=== PATIENT | male | born 1965 | race African-American/Black ===

== ENCOUNTER → 2018-08-01 | Outpatient (CLI) | payer OTHER ==
--- NOTE | 2018-08-01 17:01 | RAD ---
Left lower extremity venous duplex study 08/01/2018 Clinical History: Follow-up left lower extremity DVT. Comparison: No comparison ultrasound is available for review. Technique: Using a combination of real time ultrasound imaging and color-flow and pulse Doppler imaging techniques, including spectral analysis, graded compression and augmentation, duplex evaluation of the deep venous system of the left lower extremity was performed. Multiple images were obtained. Findings: Partially occlusive thrombus is noted within the left common femoral vein, superficial femoral vein, popliteal vein, posterior tibial vein. Greater saphenous vein is patent. Clot is echogenic consistent with subacute or chronic thrombus. Venous flow around thrombus is seen on color Doppler imaging. IMPRESSION: Partially occlusive, likely subacute or chronic thrombus extending from left common femoral vein through the posterior tibial veins. Recommend correlation with outside imaging if available. Electronically signed by: Ronal Larose MD (08/01/2018 4:58 PM) [id number]
== END | disposition home or self-care (01) ==
LOC: US 16:13
PROVIDERS: ATTEND General Practice
DX: I82.492 Acute embolism and thrombosis of other specified deep vein of left lower extremity (principal)
CPT/HCPCS: 93971

== ENCOUNTER → 2018-10-26 | Outpatient (CLI) | payer OTHER ==
[~2018-10-26] VITALS: Ht 170.2 cm; Wt 52.6 kg
[~2018-10-26] MED LIST: ACETAMINOPHEN 325 MG TABLET. PO ONE; APIX5TAB PO; BUME2TAB PO; CALC1TAB75 PO; CARV12.511 PO; CHOL500016 PO; ESOM20CA PO; FOLI1TAB16 PO; LACT296L10 PO; METH25VI27 IJ; POLY255P11 PO; PRED20TA PO; TAMS0.4C2 PO; USTE90DI SQ; ZINC220T PO; diphenhydrAMINE HCL 25 MG CAPSULE PO ONE
[2018-10-26 13:31] VITALS: BP 128/72
[2018-10-26 13:33] LABS: BASO % 0 % (0-3); EOS % 0 % (0-3); LYMPH # 0.6 x10^3/uL (1.0-4.8); LYMPH % 10 % (24-48); MEAN CORPUSCULAR HEMOGLOBIN 31 pg (25-35); MEAN CORPUSCULAR HGB CONC 33 g/dL (31-37); MEAN CORPUSCULAR VOLUME 94 fL (79-100); MONO # 0.1 x10^3/uL (0.0-1.1); MONO % 1 % (0-9); NEUT # 5.6 x10^3uL (1.8-7.7); NEUT % 88 % (31-73); PLATELET COUNT 453 x10^3/uL (140-400); RED BLOOD COUNT 2.03 x10^6/uL (4.30-5.70); RED CELL DISTRIBUTION WIDTH 27.8 % (11.5-14.5); WHITE BLOOD COUNT 6.3 x10^3/uL (4.0-11.0)
[2018-10-26 13:37] LABS: HEMATOCRIT 19.1 % (39.0-53.0); HEMOGLOBIN 6.3 g/dL (13.0-17.5)
[2018-10-26 14:55] VITALS: BP 131/67
[2018-10-26 15:35] VITALS: BP 143/85
[2018-10-26 15:41] LABS: % LYMPHS 7 % (24-48); % SEGS 93 % (35-66); NUCLEATED RBC 1
[2018-10-26 15:44] LABS: PLT ESTIMATE INCREASED (ADEQUATE)
[2018-10-26 15:51] LABS: ANISOCYTOSIS MARKED
[2018-10-26 16:33] VITALS: BP 128/79
== END ==
LOC: OPS 12:32
PROVIDERS: ATTEND Internal Medicine Hematology & Oncology
DX: D64.9 Anemia, unspecified (principal)
CPT/HCPCS: 36415; 36430; 85007; 85025; 86850; 86900; 86901; 86920; P9016; Q0163

== ENCOUNTER 2019-03-08 14:57 | Inpatient (IN) | payer OTHER ==
[~2019-03-08] VITALS: Ht 170.2 cm; Wt 65.4 kg
[~2019-03-08 14:57] MED LIST changes: -ACETAMINOPHEN 325 MG TABLET. PO ONE; -BUME2TAB PO; +BUME2TAB3 PO; -diphenhydrAMINE HCL 25 MG CAPSULE PO ONE
[2019-03-08] MEDS ORDERED: MORPHINE SULFATE 10 MG/ML VIAL. IV ONE (15:30)
[2019-03-08] MEDS ORDERED: ONDANSETRON PF 4 MG/2 ML VIAL. IV ONE (15:30)
[2019-03-08] MEDS ORDERED: IV NORMAL SALINE 1000ML BAG 1,000 ML IV ONE ×2 (15:30→19:45)
[2019-03-08 16:10] LABS: BASO % 0 % (0-3); EOS # 0.5 x10^3/uL (0.0-0.7); EOS % 5 % (0-3); HEMOGLOBIN 8.3 g/dL (13.0-17.5); LYMPH # 1.2 x10^3/uL (1.0-4.8); LYMPH % 12 % (24-48); MEAN CORPUSCULAR HEMOGLOBIN 29 pg (25-35); MEAN CORPUSCULAR HGB CONC 32 g/dL (31-37); MEAN CORPUSCULAR VOLUME 90 fL (79-100); MONO # 2.3 x10^3/uL (0.0-1.1); MONO % 23 % (0-9); NEUT # 6.1 x10^3uL (1.8-7.7); NEUT % 61 % (31-73); PLATELET COUNT 277 x10^3/uL (140-400); RED CELL DISTRIBUTION WIDTH 18.5 % (11.5-14.5); WHITE BLOOD COUNT 10.1 x10^3/uL (4.0-11.0)
[2019-03-08 16:22] LABS: CALCIUM 8.3 mg/dL (8.5-10.1); CREATININE 2.3 mg/dL (0.7-1.3); GFR 36.3; POTASSIUM 4.8 mmol/L (3.5-5.1)
[2019-03-08 16:31] LABS: ALBUMIN 2.3 g/dL (3.4-5.0); ALBUMIN/GLOBULIN RATIO 0.5 (1.0-1.7); TOTAL BILIRUBIN 0.4 mg/dL (0.2-1.0); TOTAL PROTEIN 7.1 g/dL (6.4-8.2)
[2019-03-08 16:37] LABS: BILIRUBIN,URINE NEGATIVE (NEG); CLARITY,URINE CLEAR; COLOR,URINE YELLOW; NITRITE,URINE NEGATIVE (NEG); PH,URINE 7.5; PROTEIN,URINE 30 mg/dL (NEG-TRACE); UROBILINOGEN,URINE 0.2 mg/dL (0.2 mg/dL)
--- NOTE | 2019-03-08 16:42 | PHYS DOC ---
Past Medical History Past Medical History: Other Additional Past Medical Histor: crohn's disease (RADHA WARD APRN) Past Surgical History: Other Additional Past Surgical Histo: bowel resection, colostomy (RADHA WARD APRN) Alcohol Use: None Drug Use: None (RADHA WARD APRN) Adult General Chief Complaint Chief Complaint: ABDOMINAL PAIN HPI HPI Patient is a 54 year old male with history of Crohn's and colostomy who presents to the ED today complaining of 7 out of 10 right upper quadrant abdominal pain radiating to the right flank region that has been going on for 2 days. Patient denies any nausea/ vomiting. Denies any unusual drainage from his colostomy though he states his stoma has been deformed since October when it was placed, he states he is supposed to have surgery to reconstruct it on 2018 at [facility]. He states the colostomy is draining normal amount of stool. Denies any chest pain or shortness of breath. Denies any fever. (RADHA WARD APRN) Review of Systems Review of Systems Constitutional: Denies fever or chills [] Eyes: Denies change in visual acuity, redness, or eye pain [] HENT: Denies nasal congestion or sore throat [] Respiratory: Denies cough or shortness of breath [] Cardiovascular: No additional information not addressed in HPI [] GI: Reports right upper quadrant abdominal pain radiating to the flank region, denies left upper quadrant, nausea, vomiting, bloody stools or diarrhea [] : Denies dysuria or hematuria [] Musculoskeletal: Denies back pain or joint pain [] Integument: Denies rash or skin lesions [] Neurologic: Denies headache, focal weakness or sensory changes [] All other systems were reviewed and found to be within normal limits, except as documented in this note. (RADHA WARD APRN) Current Medications Current Medications Current Medications Medications (Trade) Dose Ordered Sig/Vazquez Start Time Stop Time Status Last Admin Dose Admin Acetaminophen (Tylenol) 650 mg PRN Q6HRS PRN 03/08/19 19:15 03/13/19 14:47 DC Calcium Carbonate/ Glycine (Tums) 500 mg PRN Q3HRS PRN 03/08/19 19:15 03/13/19 14:46 DC Hydralazine HCl (Apresoline Inj) 10 mg PRN Q4HRS PRN 03/08/19 19:15 03/13/19 14:47 DC Morphine Sulfate (Morphine Sulfate) 2 mg PRN Q2HR PRN 03/08/19 19:15 03/13/19 14:47 DC 03/09/19 05:33 2 MG Ondansetron HCl (Zofran) 4 mg PRN Q6HRS PRN 03/08/19 19:15 03/13/19 14:46 DC Oxycodone HCl (Roxicodone) 5 mg PRN Q3HRS PRN 03/08/19 19:15 03/13/19 14:47 DC 03/12/19 21:07 5 MG Piperacillin Sod/ Tazobactam Sod (Zosyn Per Pharmacy) 1 each PRN DAILY PRN 03/08/19 19:15 03/13/19 14:47 DC Prochlorperazine (Compazine) 25 mg PRN Q12HR PRN 03/08/19 19:15 03/13/19 14:46 DC Prochlorperazine Edisylate (Compazine) 10 mg PRN Q6HRS PRN 03/08/19 19:15 03/13/19 14:46 DC Sodium Chloride 1,000 ml @ 100 mls/hr Q10H 03/08/19 19:04 03/09/19 05:25 DC 03/08/19 21:18 100 MLS/HR (ALEX GARCIA DO) Allergies Allergies Allergies Coded Allergies Type Severity Reaction Last Updated Verified No Known Drug Allergies 10/26/18 No (ALEX GARCIA DO) Physical Exam Physical Exam Constitutional: Well developed, well nourished, no acute distress, non-toxic appearance. [] HENT: Normocephalic, atraumatic, bilateral external ears normal, oropharynx moist, no oral exudates, nose normal. [] Eyes: PERRLA, EOMI, conjunctiva normal, no discharge. [] Neck: Normal range of motion, no tenderness, supple, no stridor. [] Cardiovascular:Heart rate regular rhythm, no murmur [] Lungs & Thorax: Bilateral breath sounds clear to auscultation [] Abdomen: Left upper abdomen noted for colostomy, nursing staff changing the bag right now the stoma has quit abit of edema. Bowel sounds normal, soft, diffuse tenderness to the right upper quadrant with positive Bradley sign, diffuse tenderness to the lower abdomen with no point tenderness specifically to the right lower quadrant, negative psoas sign, negative obturator sign, no masses, no pulsatile masses. [] Skin: Warm, dry, no erythema, no rash. [] Back: No tenderness, no CVA tenderness. [] Extremities: No tenderness, no cyanosis, no clubbing, ROM intact, no edema. [] Neurologic: Alert and oriented X 3, normal motor function, normal sensory function, no focal deficits noted. [] Psychologic: Affect normal, judgement normal, mood normal. [] (RADHA WARD APRN) Current Patient Data Vital Signs Vital Signs Date Time Temp Pulse Resp B/P (MAP) Pulse Ox O2 Delivery O2 Flow Rate FiO2 03/08/19 18:45 111 24 148/91 (110) 94 Room Air 03/08/19 14:57 98.8 98.8 (GARCIA,ALEX R DO) Lab Values Laboratory Tests Test 03/08/19 15:50 03/08/19 16:30 White Blood Count 10.1 x10^3/uL (4.0-11.0) Red Blood Count 2.90 x10^6/uL (4.30-5.70) L Hemoglobin 8.3 g/dL (13.0-17.5) L Hematocrit 26.0 % (39.0-53.0) L Mean Corpuscular Volume 90 fL (79-100) Mean Corpuscular Hemoglobin 29 pg (25-35) Mean Corpuscular Hemoglobin Concent 32 g/dL (31-37) Red Cell Distribution Width 18.5 % (11.5-14.5) H Platelet Count 277 x10^3/uL (140-400) Neutrophils (%) (Auto) 61 % (31-73) Lymphocytes (%) (Auto) 12 % (24-48) L Monocytes (%) (Auto) 23 % (0-9) H Eosinophils (%) (Auto) 5 % (0-3) H Basophils (%) (Auto) 0 % (0-3) Neutrophils # (Auto) 6.1 x10^3uL (1.8-7.7) Lymphocytes # (Auto) 1.2 x10^3/uL (1.0-4.8) Monocytes # (Auto) 2.3 x10^3/uL (0.0-1.1) H Eosinophils # (Auto) 0.5 x10^3/uL (0.0-0.7) Basophils # (Auto) 0.0 x10^3/uL (0.0-0.2) Segmented Neutrophils % 73 % (35-66) H Lymphocytes % 6 % (24-48) L Monocytes % 15 % (0-10) H Eosinophils % 6 % (0-5) H Platelet Estimate Adequate (ADEQUATE) Polychromasia Slight Microcytosis Slight Macrocytosis Slight Sodium Level 137 mmol/L (136-145) Potassium Level 4.8 mmol/L (3.5-5.1) Chloride Level 103 mmol/L (98-107) Carbon Dioxide Level 24 mmol/L (21-32) Anion Gap 10 (6-14) Blood Urea Nitrogen 45 mg/dL (8-26) H Creatinine 2.3 mg/dL (0.7-1.3) H Estimated GFR (Cockcroft-Gault) 36.3 BUN/Creatinine Ratio 20 (6-20) Glucose Level 99 mg/dL (70-99) Calcium Level 8.3 mg/dL (8.5-10.1) L Total Bilirubin 0.4 mg/dL (0.2-1.0) Aspartate Amino Transferase (AST) 18 U/L (15-37) Alanine Aminotransferase (ALT) 18 U/L (16-63) Alkaline Phosphatase 146 U/L (46-116) H Total Protein 7.1 g/dL (6.4-8.2) Albumin 2.3 g/dL (3.4-5.0) L Albumin/Globulin Ratio 0.5 (1.0-1.7) L Lipase 61 U/L (73-393) L Urine Color Yellow Urine Clarity Clear Urine pH 7.5 Urine Specific [place] 1.015 Urine Protein 30 mg/dL (NEG-TRACE) Urine Glucose (UA) Negative mg/dL (NEG) Urine Ketones (Stick) Negative mg/dL (NEG) Urine Blood Small (NEG) Urine Nitrite Negative (NEG) Urine Bilirubin Negative (NEG) Urine Urobilinogen Dipstick 0.2 mg/dL (0.2 mg/dL) Urine Leukocyte Esterase Negative (NEG) Urine RBC 3-5 /HPF (0-2) Urine WBC Occ /HPF (0-4) Urine Squamous Epithelial Cells Occ /LPF Urine Bacteria 0 /HPF (0-FEW) Laboratory Tests 03/08/19 15:50 Laboratory Tests 03/08/19 15:50 (ALEX GARCIA DO) EKG EKG [] (SYLVIARADHA APRN) Radiology/Procedures Radiology/Procedures []PROCEDURE: CT ABDOMEN PELVIS WO CONTRAST INDICATION: CHEST/ABD DISTENSION COMPARISON: None. TECHNIQUE: Axial CT images obtained through the chest, abdomen and pelvis without contrast. Limited assessment of solid organ structures and vasculature secondary to lack of intravenous contrast.. One or more of the following individualized dose reduction techniques were utilized for this examination: 1. Automated exposure control; 2. Adjustment of the mA and/or kV according to patient size; 3. Use of iterative reconstruction technique. FINDINGS: Chest: Large right-sided pleural effusion with adjacent airspace consolidation. Only a small portion of the right lung is aerated. Mild opacity at left lung base. Port with tip at SVC. There is suspected enlarged lymph nodes within the mediastinum. Suspect that there is some mass effect on the mediastinum from the patient's pleural effusion. Limited evaluation of the vasculature without contrast. A ascending thoracic aorta measures up to about 41 mm but limited evaluation. This is mildly enlarged. There is a small amount soft tissue density in the anterior mediastinum. Abdomen and pelvis: Abdominal aorta not grossly aneurysmal. Cannot evaluate lumen on noncontrast exam. Inferior vena cava filter. Low-density lesion at hepatic dome measuring up to 16mm. Gallstones. Gallbladder somewhat distended at time of exam. Poor evaluation of pancreas without contrast. Spleen does not appear grossly enlarged. No left-sided hydronephrosis. Urinary bladder is partially distended. Left lower quadrant ostomy. No right-sided hydronephrosis. There is some apparent wall thickening of the colon including extending to the ostomy site. There is some haziness to the fat. Air-filled dilated loop of colon at left side of the abdomen measuring up to about 7 cm. Edema of soft tissues. Degenerative changes the spine with scoliotic curvature multilevel central canal and neural foraminal stenosis. Ossific densities within the soft tissues inferior to the right pelvis. Chronic appearance. IMPRESSION: 1. Wall thickening of the colon including adjacent to the ostomy site with adjacent edema. Can be seen with causes such as colitis and would correlate with symptoms in the region. 2. Dilated loop of colon is seen within the abdomen which could be from ileus or distal obstruction. 3. Large right-sided pleural effusion with adjacent airspace consolidation. Follow-up could be obtained to ensure this resolves. 4. Gallbladder somewhat distended at time of exam with gallstones. Low-density lesion at hepatic dome. Not well evaluated on noncontrast imaging but a common finding. If more complete characterization is desired a follow-up focused ultrasound could assess if this is solid or cystic on a nonemergent basis. Electronically signed by: Toma Morillo MD (03/08/2019 5:44 PM) [facility] DICTATED and SIGNED BY: TOMA MORILLO MD DATE: 03/08/19 174 PROCEDURE: CT CHEST WO CONTRAST INDICATION: CHEST/ABD DISTENSION COMPARISON: None. TECHNIQUE: Axial CT images obtained through the chest, abdomen and pelvis without contrast. Limited assessment of solid organ structures and vasculature secondary to lack of intravenous contrast.. One or more of the following individualized dose reduction techniques were utilized for this examination: 1. Automated exposure control; 2. Adjustment of the mA and/or kV according to patient size; 3. Use of iterative reconstruction technique. FINDINGS: Chest: Large right-sided pleural effusion with adjacent airspace consolidation. Only a small portion of the right lung is aerated. Mild opacity at left lung base. Port with tip at SVC. There is suspected enlarged lymph nodes within the mediastinum. Suspect that there is some mass effect on the mediastinum from the patient's pleural effusion. Limited evaluation of the vasculature without contrast. A ascending thoracic aorta measures up to about 41 mm but limited evaluation. This is mildly enlarged. There is a small amount soft tissue density in the anterior mediastinum. Abdomen and pelvis: Abdominal aorta not grossly aneurysmal. Cannot evaluate lumen on noncontrast exam. Inferior vena cava filter. Low-density lesion at hepatic dome measuring up to 16mm. Gallstones. Gallbladder somewhat distended at time of exam. Poor evaluation of pancreas without contrast. Spleen does not appear grossly enlarged. No left-sided hydronephrosis. Urinary bladder is partially distended. Left lower quadrant ostomy. No right-sided hydronephrosis. There is some apparent wall thickening of the colon including extending to the ostomy site. There is some haziness to the fat. Air-filled dilated loop of colon at left side of the abdomen measuring up to about 7 cm. Edema of soft tissues. Degenerative changes the spine with scoliotic curvature multilevel central canal and neural foraminal stenosis. Ossific densities within the soft tissues inferior to the right pelvis. Chronic appearance. IMPRESSION: 1. Wall thickening of the colon including adjacent to the ostomy site with adjacent edema. Can be seen with causes such as colitis and would correlate with symptoms in the region. 2. Dilated loop of colon is seen within the abdomen which could be from ileus or distal obstruction. 3. Large right-sided pleural effusion with adjacent airspace consolidation. Follow-up could be obtained to ensure this resolves. 4. Gallbladder somewhat distended at time of exam with gallstones. Low-density lesion at hepatic dome. Not well evaluated on noncontrast imaging but a common finding. If more complete characterization is desired a follow-up focused ultrasound could assess if this is solid or cystic on a nonemergent basis. Electronically signed by: Toma Morillo MD (03/08/2019 5:44 PM) [facility] DICTATED and SIGNED BY: TOMA MORILLO MD DATE: 03/08/19 1744 (RADHA WARD APRN) Course & Med Decision Making Course & Med Decision Making Pertinent Labs and Imaging studies reviewed. (See chart for details) This is a 54-year-old male patient presented to the ED today complaining of right upper quadrant abdominal pain radiating to the right flank region, symptoms for 2 days, patient has history of Crohn's and has a colostomy since October 2018. CT of the abdomen and pelvic was noted for-Wall thickening of the colon including adjacent to the ostomy site with adjacent edema. Can be seen with causes such as colitis and would correlate with symptoms in the region. Dilated loop of colon is seen within the abdomen which could be from ileus or distal obstruction. Large right-sided pleural effusion with adjacent airspace consolidation. Follow-up could be obtained to ensure this resolves.Gallbladder somewhat distended at time of exam with gallstones. Low-density lesion at hepatic dome. Not well evaluated on noncontrast imaging but a common finding. if more complete characterization is desired a follow-up focused ultrasound could assess if this is solid or cystic on a nonemergent basis. CBC with a normal WBC, hemoglobin 8.3, hematocrit 26.0, CMP with creatinine of 2.3, BUN 45. ALK 146, AST is normal, ALT is normal. Consulted with Dr. Treadwell will follow-up with patient Consulted with Dr. Freeman who accepted patient for admission Consulted with Dr. Cordova he requested we hydrate patient for ARF. (RADHA WARD APRN) Dragon Disclaimer Dragon Disclaimer This electronic medical record was generated, in whole or in part, using a voice recognition dictation system. (RADHA WARD APRN) Departure Departure Impression: Primary Impression: Cholelithiasis Additional Impressions: ARF (acute renal failure) Pleural effusion on right Colitis Disposition: ADMITTED INPATIENT Condition: STABLE Referrals: PAUL ZAPATA DO (PCP) Scripts Amoxicillin/Potassium Clav (AUGMENTIN 500-125 TABLET) 1 Each Tablet 1 TAB PO BID for pneumonia, #20 TAB Prov: ROYA CAIN MD 03/13/19 Budesonide (BUDESONIDE) 0.5 Mg/2 Ml Ampul.neb 0.5 MG NEB RTBID for lungs for 14 Days, #30 EACH Prov: ROYA CAIN MD 03/13/19 Calcium Carbonate (CALCIUM CARBONATE) 200 Mg Tab.chew 500 MG PO PRN Q3HRS PRN for UPSET STOMACH for 10 Days, #30 TAB.CHEW Prov: ROYA CAIN MD 03/13/19 Attending Signature Attending Signature I have reviewed the PA/MUD CLEANER OPERATOR's note and plan of care. I was available for consultation as needed during the patient's visit in the emergency department. I agree with the clinical impression, plan, and disposition. (ALEX GARCIA DO) Problem Qualifiers Primary Impression: Cholelithiasis Cholelithiasis location: bile duct Cholecystitis presence: without cholecystitis Biliary obstruction: without biliary obstruction Qualified Codes: K80.50 - Calculus of bile duct without cholangitis or cholecystitis without obstruction Additional Impressions: ARF (acute renal failure) Acute renal failure type: unspecified Qualified Codes: N17.9 - Acute kidney failure, unspecified RADHA WARD APRN Mar 08, 2019 16:42 ALEX GARCIA DO Mar 17, 2019 17:19
[2019-03-08 16:53] LABS: BACTERIA,URINE 0 /HPF (0-FEW); SQUAMOUS EPITHELIAL CELL,UR OCC /LPF; WBC,URINE OCC /HPF (0-4)
--- NOTE | 2019-03-08 17:47 | RAD ---
INDICATION: CHEST/ABD DISTENSION COMPARISON: None. TECHNIQUE: Axial CT images obtained through the chest, abdomen and pelvis without contrast. Limited assessment of solid organ structures and vasculature secondary to lack of intravenous contrast.. One or more of the following individualized dose reduction techniques were utilized for this examination: 1. Automated exposure control; 2. Adjustment of the mA and/or kV according to patient size; 3. Use of iterative reconstruction technique. FINDINGS: Chest: Large right-sided pleural effusion with adjacent airspace consolidation. Only a small portion of the right lung is aerated. Mild opacity at left lung base. Port with tip at SVC. There is suspected enlarged lymph nodes within the mediastinum. Suspect that there is some mass effect on the mediastinum from the patient's pleural effusion. Limited evaluation of the vasculature without contrast. A ascending thoracic aorta measures up to about 41 mm but limited evaluation. This is mildly enlarged. There is a small amount soft tissue density in the anterior mediastinum. Abdomen and pelvis: Abdominal aorta not grossly aneurysmal. Cannot evaluate lumen on noncontrast exam. Inferior vena cava filter. Low-density lesion at hepatic dome measuring up to 16mm. Gallstones. Gallbladder somewhat distended at time of exam. Poor evaluation of pancreas without contrast. Spleen does not appear grossly enlarged. No left-sided hydronephrosis. Urinary bladder is partially distended. Left lower quadrant ostomy. No right-sided hydronephrosis. There is some apparent wall thickening of the colon including extending to the ostomy site. There is some haziness to the fat. Air-filled dilated loop of colon at left side of the abdomen measuring up to about 7 cm. Edema of soft tissues. Degenerative changes the spine with scoliotic curvature multilevel central canal and neural foraminal stenosis. Ossific densities within the soft tissues inferior to the right pelvis. Chronic appearance. IMPRESSION: 1. Wall thickening of the colon including adjacent to the ostomy site with adjacent edema. Can be seen with causes such as colitis and would correlate with symptoms in the region. 2. Dilated loop of colon is seen within the abdomen which could be from ileus or distal obstruction. 3. Large right-sided pleural effusion with adjacent airspace consolidation. Follow-up could be obtained to ensure this resolves. 4. Gallbladder somewhat distended at time of exam with gallstones. Low-density lesion at hepatic dome. Not well evaluated on noncontrast imaging but a common finding. If more complete characterization is desired a follow-up focused ultrasound could assess if this is solid or cystic on a nonemergent basis. Electronically signed by: Brijesh Camacho MD (03/08/2019 5:44 PM) [facility]
[2019-03-08] MEDS ORDERED: ONDANSETRON PF 4 MG/2 ML VIAL. IV PRN ×2 (19:15→19:45)
[2019-03-08] MEDS ORDERED: PIP/TAZO PER PHARMACY MC PRN (19:15)
[2019-03-08] MEDS ORDERED: ACETAMINOPHEN 325 MG TABLET. PO PRN (19:15)
[2019-03-08] MEDS ORDERED: PROCHLORPERAZINE 10 MG/2 ML VIAL. IV PRN (19:15)
[2019-03-08] MEDS ORDERED: hydrALAZINE 20 MG/ML VIAL. IVP PRN (19:15)
[2019-03-08] MEDS ORDERED: CALCIUM CARBONATE 500 MG TAB.CHEW PO PRN (19:15)
[2019-03-08] MEDS ORDERED: PROCHLORPERAZINE 25 MG SUPP.RECT. PR PRN (19:15)
[2019-03-08] MEDS: PIPERACILLIN/TAZOBACTAM 2.25 GM in IV NORMAL SALINE 50ML 50 ML IV SCH (19:22)
[2019-03-08 19:45] LABS: % EOS 6 % (0-5); % LYMPHS 6 % (24-48); % MONOS 15 % (0-10); % SEGS 73 % (35-66); PLT ESTIMATE ADEQUATE (ADEQUATE); POLYCHROMASIA SLIGHT
[2019-03-08] MEDS ORDERED: MORPHINE SULFATE 4 MG/ML VIAL. IV PRN (19:45)
[2019-03-08 19:46] LABS: MICROCYTOSIS SLIGHT
[2019-03-08] MEDS: IV 1/2 NORMAL SALINE 1,000 ML IV SCH (21:18)
[2019-03-08] MEDS: oxyCODONE IR 5 MG TABLET PO PRN (21:19)
[2019-03-08] MEDS: MORPHINE SULFATE 2 MG/ML VIAL. IV PRN (23:08)
[2019-03-08 23:13] VITALS: BP 148/94
[2019-03-09] MEDS: oxyCODONE IR 5 MG TABLET PO PRN ×3 (01:11→21:41)
[2019-03-09] MEDS: MORPHINE SULFATE 2 MG/ML VIAL. IV PRN ×2 (01:11→05:33)
[2019-03-09] MEDS: PIPERACILLIN/TAZOBACTAM 2.25 GM in IV NORMAL SALINE 50ML 50 ML IV SCH ×4 (01:11→17:54)
[2019-03-09 03:26] LABS: BASO # 0.1 x10^3/uL (0.0-0.2); BASO % 1 % (0-3); EOS # 0.6 x10^3/uL (0.0-0.7); EOS % 5 % (0-3); HEMATOCRIT 26.8 % (39.0-53.0); HEMOGLOBIN 8.5 g/dL (13.0-17.5); LYMPH # 1.5 x10^3/uL (1.0-4.8); LYMPH % 12 % (24-48); MEAN CORPUSCULAR HEMOGLOBIN 29 pg (25-35); MEAN CORPUSCULAR HGB CONC 32 g/dL (31-37); MEAN CORPUSCULAR VOLUME 90 fL (79-100); MONO # 2.4 x10^3/uL (0.0-1.1); MONO % 19 % (0-9); NEUT # 7.9 x10^3uL (1.8-7.7); NEUT % 63 % (31-73); PLATELET COUNT 329 x10^3/uL (140-400); RED BLOOD COUNT 2.98 x10^6/uL (4.30-5.70); RED CELL DISTRIBUTION WIDTH 18.2 % (11.5-14.5); WHITE BLOOD COUNT 12.5 x10^3/uL (4.0-11.0)
[2019-03-09 03:37] LABS: CALCIUM 8.1 mg/dL (8.5-10.1); CREATININE 2.4 mg/dL (0.7-1.3); GFR 34.6; POTASSIUM 5.1 mmol/L (3.5-5.1)
[2019-03-09 03:49] VITALS: BP 143/93
--- NOTE | 2019-03-09 05:07 | NUR ---
AM labs showed blood glucose of 67. BG checked via fingerstick with a result of 54, patient is A&O but has some labored breathing and complaining of pain. Patient given apple juice. BG fingerstick then resulted as 63, will give patient another apple juice while awaiting call back from doctor. Addendum: 03/09/19 at 0544 by LIZZETH KIMBLE RN 2nd apple juice given, BG not 83. Orders received for D5 11/28 NS @75. will continue to monitor
[2019-03-09] MEDS: IV 1/2 NORMAL SALINE 1,000 ML IV SCH (05:11)
[2019-03-09] MEDS: IV DEXTROSE 5 %-0.45 % NACL 1,000 ML IV SCH ×2 (05:31→17:54)
[2019-03-09 07:00] VITALS: BP 120/75
[2019-03-09] MEDS ORDERED: cefTRIAXone IV Push 1 GM VIAL. IVP SCH (08:00)
[2019-03-09] MEDS: IPRATROPIUM BROMIDE 0.5 MG/2.5 ML NEBU. NEB SCH ×4 (08:00→20:43)
--- NOTE | 2019-03-09 08:08 | PDOC ---
Provider Note Provider Note [id number] acute resp fail abnl ct of chest pleural effusion us guided thoracnetesis ?surgery consult defer to primary see orders LARRY OROPEZA MD Mar 09, 2019 08:08
[2019-03-09] MEDS: PANTOPRAZOLE IV PUSH 40 MG VIAL. IVP SCH (08:49)
--- NOTE | 2019-03-09 09:22 | PDOC2 ---
CONSULT Date of Consult Date of Consult DATE: 03/09/19 TIME: 09:17 Reason for Consult Reason for Consult: colitis, cholelithiasis Referring Physician Referring Physician: SWEETIE Identification/Chief Complaint Chief Complaint abdominal pain Source Source: Chart review, Patient History of Present Illness Reason for Visit: Remberto is a 54 yo male s/p LLQ colostomy for reported Crohn's. He is scheduled for revision of his stoma at [facility] on March 18. Past Surgical History Past Surgical History: Colon Resection Current Problem List Problem List Problems Medical Problems: (1) ARF (acute renal failure) Status: Acute (2) Cholelithiasis Status: Acute (3) Pleural effusion on right Status: Acute Current Medications Current Medications Current Medications Sodium Chloride 1,000 ml @ 1,000 mls/hr 1X ONCE IV Last administered on at 15:30; Start 03/08/19 at 15:30; Stop 03/08/19 at 16:29; Status DC Ondansetron HCl (Zofran) 4 mg 1X ONCE IV ; Start 03/08/19 at 15:30; Stop at 15:31; Status DC Morphine Sulfate (Morphine Sulfate) 5 mg 1X ONCE IV ; Start 03/08/19 at 15:30; Stop 03/08/19 at 15:31; Status DC Sodium Chloride 1,000 ml @ 100 mls/hr Q10H IV Last administered on 03/08/19at 21:18; Start 03/08/19 at 19:04; Stop 03/09/19 at 05:25; Status DC Ondansetron HCl (Zofran) 4 mg PRN Q6HRS PRN IV NAUSEA/VOMITING, 1ST CHOICE; Start 03/08/19 at 19:15 Prochlorperazine Edisylate (Compazine) 10 mg PRN Q6HRS PRN IV NAUSEA/VOMITING, 2ND CHOICE; Start 03/08/19 at 19:15 Prochlorperazine (Compazine) 25 mg PRN Q12HR PRN ND NAUSEA/VOMITING; Start 11/14 at 19:15 Calcium Carbonate/ Glycine (Tums) 500 mg PRN Q3HRS PRN PO UPSET STOMACH; Start 03/08/19 at 19:15 Oxycodone HCl (Roxicodone) 5 mg PRN Q3HRS PRN PO BREAKTHROUGH PAIN Last administered on 03/09/19at 04:47; Start 03/08/19 at 19:15 Morphine Sulfate (Morphine Sulfate) 2 mg PRN Q2HR PRN IV PAIN Last administered on 03/09/19at 05:33; Start 03/08/19 at 19:15 Acetaminophen (Tylenol) 650 mg PRN Q6HRS PRN PO Headaches, Temp > 101.5F; Start 03/08/19 at 19:15 Piperacillin Sod/ Tazobactam Sod (Zosyn Per Pharmacy) 1 each PRN DAILY PRN MC SEE COMMENTS; Start 03/08/19 at 19:15 Hydralazine HCl (Apresoline Inj) 10 mg PRN Q4HRS PRN IVP ELEVATED BP, SEE COMMENTS; Start 03/08/19 at 19:15 Piperacillin Sod/ Tazobactam Sod 2.25 gm/Sodium Chloride 50 ml @ 100 mls/hr Q6HRS IV Last administered on 03/09/19at 05:12; Start 03/08/19 at 19:30 Ondansetron HCl (Zofran) 4 mg PRN Q8HRS PRN IV NAUSEA/VOMITING; Start 03/08/19 at 19:45; Stop 03/09/19 at 19:44; Status Cancel Morphine Sulfate (Morphine Sulfate) 4 mg PRN Q2HR PRN IV PAIN; Start 03/08/19 at 19:45; Stop 03/09/19 at 19:44; Status Cancel Sodium Chloride 1,000 ml @ 100 mls/hr 1X ONCE IV ; Start 03/08/19 at 19:45; Stop 03/09/19 at 05:44; Status Cancel Dextrose/Sodium Chloride 1,000 ml @ 75 mls/hr [id number] IV Last administered on 03/09/19at 05:31; Start 03/09/19 at 05:30 Ceftriaxone Sodium (Rocephin) 1 gm Q24H IVP ; Start 03/09/19 at 08:00; Stop at 08:01; Status DC Ipratropium [place] (Atrovent) 0.5 mg RTQID NEB ; Start 03/09/19 at 08:00 Budesonide (Pulmicort) 0.5 mg RTBID NEB ; Start 03/09/19 at 08:00 Pantoprazole Sodium (PROTONIX VIAL for IV PUSH) 40 mg DAILYAC IVP Last administered on 03/09/19at 08:49; Start 03/09/19 at 08:15 Active Scripts Active Reported Zinc Sulfate 220 Mg Tablet 220 Mg PO DAILY Vitamin D3 (Cholecalciferol (Vitamin D3)) 5,000 Unit Tablet 2,000 Unit PO DAILY Stelara (Ustekinumab) 90 Mg/1 Ml Disp.syrin 90 Mg SQ EVERY 8 WEEKS Tamsulosin Hcl 0.4 Mg Cap.er.24h 1 Cap PO DAILY Prednisone 20 Mg Tablet 1 Tab PO BID Polyethylene Glycol 3350 255 Gm Powder 17 Gm PO DAILY Methotrexate (Methotrexate Sodium) 25 Mg/1 Ml Vial 25 Mg IJ WEEKLY Ensure Clear (Lactose-Reduced Food) 296 Ml Liquid 296 Ml PO 5XDAY Folic Acid 1 Mg Tablet 5 Tab PO DAILY Nexium Capsule (Esomeprazole Magnesium) 20 Mg Capsule.dr 20 Mg PO BID Eliquis (Apixaban) 5 Mg Tablet 5 Mg PO BID Carvedilol (Carvedilol) 12.5 Mg Tablet 12.5 Mg PO BIDWMEALS Calcium 600 + Vit D 200 Tablet (Calcium Carbonate/Vitamin D3) 1 Each Tablet 1 Each PO BID Bumetanide 2 Mg Tablet 1 Tab PO DAILY Allergies Allergies: Coded Allergies: No Known Drug Allergies (Unverified , 10/26/18) ROS General: YES: Chills Respiratory: YES: Pleuritic Pain, SOB with excertion Gastrointestinal: Yes Nausea, Yes Abdominal Pain Physical Exam General: No acute distress HEENT: Atraumatic Lungs: Other (decreased BS on right) Abdomen: Other (well healed midline scar, edematous colostomy) Vitals VITALS Vital Signs Date Time Temp Pulse Resp B/P (MAP) Pulse Ox O2 Delivery O2 Flow Rate FiO2 03/09/19 07:00 98.9 114 24 120/75 (90) 96 Nasal Cannula 2.0 98.9 Labs Labs Laboratory Tests Test 03/08/19 15:50 03/08/19 16:30 03/08/19 19:34 03/09/19 03:00 White Blood Count 10.1 x10^3/uL (4.0-11.0) 12.5 x10^3/uL (4.0-11.0) Red Blood Count 2.90 x10^6/uL (4.30-5.70) 2.98 x10^6/uL (4.30-5.70) Hemoglobin 8.3 g/dL (13.0-17.5) 8.5 g/dL (13.0-17.5) Hematocrit 26.0 % (39.0-53.0) 26.8 % (39.0-53.0) Mean Corpuscular Volume 90 fL (79-100) 90 fL (79-100) Mean Corpuscular Hemoglobin 29 pg (25-35) 29 pg (25-35) Mean Corpuscular Hemoglobin Concent 32 g/dL (31-37) 32 g/dL (31-37) Red Cell Distribution Width 18.5 % (11.5-14.5) 18.2 % (11.5-14.5) Platelet Count 277 x10^3/uL (140-400) 329 x10^3/uL (140-400) Neutrophils (%) (Auto) 61 % (31-73) 63 % (31-73) Lymphocytes (%) (Auto) 12 % (24-48) 12 % (24-48) Monocytes (%) (Auto) 23 % (0-9) 19 % (0-9) Eosinophils (%) (Auto) 5 % (0-3) 5 % (0-3) Basophils (%) (Auto) 0 % (0-3) 1 % (0-3) Neutrophils # (Auto) 6.1 x10^3uL (1.8-7.7) 7.9 x10^3uL (1.8-7.7) Lymphocytes # (Auto) 1.2 x10^3/uL (1.0-4.8) 1.5 x10^3/uL (1.0-4.8) Monocytes # (Auto) 2.3 x10^3/uL (0.0-1.1) 2.4 x10^3/uL (0.0-1.1) Eosinophils # (Auto) 0.5 x10^3/uL (0.0-0.7) 0.6 x10^3/uL (0.0-0.7) Basophils # (Auto) 0.0 x10^3/uL (0.0-0.2) 0.1 x10^3/uL (0.0-0.2) Segmented Neutrophils % 73 % (35-66) Lymphocytes % 6 % (24-48) Monocytes % 15 % (0-10) Eosinophils % 6 % (0-5) Platelet Estimate Adequate (ADEQUATE) Polychromasia Slight Microcytosis Slight Macrocytosis Slight Sodium Level 137 mmol/L (136-145) 137 mmol/L (136-145) Potassium Level 4.8 mmol/L (3.5-5.1) 5.1 mmol/L (3.5-5.1) Chloride Level 103 mmol/L (98-107) 105 mmol/L (98-107) Carbon Dioxide Level 24 mmol/L (21-32) 21 mmol/L (21-32) Anion Gap 10 (6-14) 11 (6-14) Blood Urea Nitrogen 45 mg/dL (8-26) 40 mg/dL (8-26) Creatinine 2.3 mg/dL (0.7-1.3) 2.4 mg/dL (0.7-1.3) Estimated GFR (Cockcroft-Gault) 36.3 34.6 BUN/Creatinine Ratio 20 (6-20) Glucose Level 99 mg/dL (70-99) 67 mg/dL (70-99) Calcium Level 8.3 mg/dL (8.5-10.1) 8.1 mg/dL (8.5-10.1) Total Bilirubin 0.4 mg/dL (0.2-1.0) Aspartate Amino Transf (AST/SGOT) 18 U/L (15-37) Alanine Aminotransferase (ALT/SGPT) 18 U/L (16-63) Alkaline Phosphatase 146 U/L (46-116) Total Protein 7.1 g/dL (6.4-8.2) Albumin 2.3 g/dL (3.4-5.0) Albumin/Globulin Ratio 0.5 (1.0-1.7) Lipase 61 U/L (73-393) Urine Color Yellow Urine Clarity Clear Urine pH 7.5 Urine Specific [place] 1.015 Urine Protein 30 mg/dL (NEG-TRACE) Urine Glucose (UA) Negative mg/dL (NEG) Urine Ketones (Stick) Negative mg/dL (NEG) Urine Blood Small (NEG) Urine Nitrite Negative (NEG) Urine Bilirubin Negative (NEG) Urine Urobilinogen Dipstick 0.2 mg/dL (0.2 mg/dL) Urine Leukocyte Esterase Negative (NEG) Urine RBC 3-5 /HPF (0-2) Urine WBC Occ /HPF (0-4) Urine Squamous Epithelial Cells Occ /LPF Urine Bacteria 0 /HPF (0-FEW) Erythrocyte Sedimentation Rate 92 (0-15) Lactic Acid Level 0.6 mmol/L (0.4-2.0) Test 03/09/19 04:41 03/09/19 05:01 03/09/19 05:31 03/09/19 07:44 Glucose (Fingerstick) 54 mg/dL (70-99) 63 mg/dL (70-99) 83 mg/dL (70-99) 101 mg/dL (70-99) Laboratory Tests Test 03/08/19 15:50 03/08/19 16:30 03/08/19 19:34 03/09/19 03:00 White Blood Count 10.1 x10^3/uL (4.0-11.0) 12.5 x10^3/uL (4.0-11.0) Red Blood Count 2.90 x10^6/uL (4.30-5.70) 2.98 x10^6/uL (4.30-5.70) Hemoglobin 8.3 g/dL (13.0-17.5) 8.5 g/dL (13.0-17.5) Hematocrit 26.0 % (39.0-53.0) 26.8 % (39.0-53.0) Mean Corpuscular Volume 90 fL (79-100) 90 fL (79-100) Mean Corpuscular Hemoglobin 29 pg (25-35) 29 pg (25-35) Mean Corpuscular Hemoglobin Concent 32 g/dL (31-37) 32 g/dL (31-37) Red Cell Distribution Width 18.5 % (11.5-14.5) 18.2 % (11.5-14.5) Platelet Count 277 x10^3/uL (140-400) 329 x10^3/uL (140-400) Neutrophils (%) (Auto) 61 % (31-73) 63 % (31-73) Lymphocytes (%) (Auto) 12 % (24-48) 12 % (24-48) Monocytes (%) (Auto) 23 % (0-9) 19 % (0-9) Eosinophils (%) (Auto) 5 % (0-3) 5 % (0-3) Basophils (%) (Auto) 0 % (0-3) 1 % (0-3) Neutrophils # (Auto) 6.1 x10^3uL (1.8-7.7) 7.9 x10^3uL (1.8-7.7) Lymphocytes # (Auto) 1.2 x10^3/uL (1.0-4.8) 1.5 x10^3/uL (1.0-4.8) Monocytes # (Auto) 2.3 x10^3/uL (0.0-1.1) 2.4 x10^3/uL (0.0-1.1) Eosinophils # (Auto) 0.5 x10^3/uL (0.0-0.7) 0.6 x10^3/uL (0.0-0.7) Basophils # (Auto) 0.0 x10^3/uL (0.0-0.2) 0.1 x10^3/uL (0.0-0.2) Segmented Neutrophils % 73 % (35-66) Lymphocytes % 6 % (24-48) Monocytes % 15 % (0-10) Eosinophils % 6 % (0-5) Platelet Estimate Adequate (ADEQUATE) Polychromasia Slight Microcytosis Slight Macrocytosis Slight Sodium Level 137 mmol/L (136-145) 137 mmol/L (136-145) Potassium Level 4.8 mmol/L (3.5-5.1) 5.1 mmol/L (3.5-5.1) Chloride Level 103 mmol/L (98-107) 105 mmol/L (98-107) Carbon Dioxide Level 24 mmol/L (21-32) 21 mmol/L (21-32) Anion Gap 10 (6-14) 11 (6-14) Blood Urea Nitrogen 45 mg/dL (8-26) 40 mg/dL (8-26) Creatinine 2.3 mg/dL (0.7-1.3) 2.4 mg/dL (0.7-1.3) Estimated GFR (Cockcroft-Gault) 36.3 34.6 BUN/Creatinine Ratio 20 (6-20) Glucose Level 99 mg/dL (70-99) 67 mg/dL (70-99) Calcium Level 8.3 mg/dL (8.5-10.1) 8.1 mg/dL (8.5-10.1) Total Bilirubin 0.4 mg/dL (0.2-1.0) Aspartate Amino Transf (AST/SGOT) 18 U/L (15-37) Alanine Aminotransferase (ALT/SGPT) 18 U/L (16-63) Alkaline Phosphatase 146 U/L (46-116) Total Protein 7.1 g/dL (6.4-8.2) Albumin 2.3 g/dL (3.4-5.0) Albumin/Globulin Ratio 0.5 (1.0-1.7) Lipase 61 U/L (73-393) Urine Color Yellow Urine Clarity Clear Urine pH 7.5 Urine Specific [place] 1.015 Urine Protein 30 mg/dL (NEG-TRACE) Urine Glucose (UA) Negative mg/dL (NEG) Urine Ketones (Stick) Negative mg/dL (NEG) Urine Blood Small (NEG) Urine Nitrite Negative (NEG) Urine Bilirubin Negative (NEG) Urine Urobilinogen Dipstick 0.2 mg/dL (0.2 mg/dL) Urine Leukocyte Esterase Negative (NEG) Urine RBC 3-5 /HPF (0-2) Urine WBC Occ /HPF (0-4) Urine Squamous Epithelial Cells Occ /LPF Urine Bacteria 0 /HPF (0-FEW) Erythrocyte Sedimentation Rate 92 (0-15) Lactic Acid Level 0.6 mmol/L (0.4-2.0) Test 03/09/19 04:41 03/09/19 05:01 03/09/19 05:31 03/09/19 07:44 Glucose (Fingerstick) 54 mg/dL (70-99) 63 mg/dL (70-99) 83 mg/dL (70-99) 101 mg/dL (70-99) Images Images CT scans done on admission are reviewed Assessment/Plan Assessment/Plan s/p colostomy at [facility] with scheduled revision March 18 large right pleural effusion colitis cholelithiasis GB distention given circumstances recommend referral to [facility] to follow up with his surgeon who has scheduled him for a procedure in nine days Thanks for consult NATHEN JOYCE MD Mar 09, 2019 09:22
--- NOTE | 2019-03-09 09:50 | PDOC1 ---
History and Physical Date of Admission Date of Admission DATE: 03/09/19 TIME: 09:50 Identification/Chief Complaint Chief Complaint SEEN IN ER , Patient is a 54 year old male with history of Crohn's and colostomy who presents to the ED today complaining of 7 out of 10 right upper quadrant abdominal pain radiating to the right flank region that has been going on for 2 days. Patient denies any nausea/ vomiting. Denies any unusual drainage from his colostomy though he states his stoma has been deformed since October when it was placed AT [facility] has inc wheezes upon arrival in ER LARGE PLEURAL EFFUSION NOTED Past Medical History Past Medical History Past Medical History Past Medical History: Other Additional Past Medical Histor: crohn's disease Past Surgical History: Other Additional Past Surgical Histo: bowel resection, colostomy Alcohol Use: None Drug Use: None FAMILY HX CAD Past Surgical History Past Surgical History: Colon Resection Family History Family History: Coronary Artery Disease Social History Smoke: No ALCOHOL: none Drugs: None Current Problem List Problem List Problems Medical Problems: (1) ARF (acute renal failure) Status: Acute (2) Cholelithiasis Status: Acute (3) Pleural effusion on right Status: Acute Current Medications Current Medications Current Medications Sodium Chloride 1,000 ml @ 1,000 mls/hr 1X ONCE IV Last administered on at 15:30; Start 03/08/19 at 15:30; Stop 03/08/19 at 16:29; Status DC Ondansetron HCl (Zofran) 4 mg 1X ONCE IV ; Start 03/08/19 at 15:30; Stop at 15:31; Status DC Morphine Sulfate (Morphine Sulfate) 5 mg 1X ONCE IV ; Start 03/08/19 at 15:30; Stop 03/08/19 at 15:31; Status DC Sodium Chloride 1,000 ml @ 100 mls/hr Q10H IV Last administered on 03/08/19at 21:18; Start 03/08/19 at 19:04; Stop 03/09/19 at 05:25; Status DC Ondansetron HCl (Zofran) 4 mg PRN Q6HRS PRN IV NAUSEA/VOMITING, 1ST CHOICE; Start 03/08/19 at 19:15 Prochlorperazine Edisylate (Compazine) 10 mg PRN Q6HRS PRN IV NAUSEA/VOMITING, 2ND CHOICE; Start 03/08/19 at 19:15 Prochlorperazine (Compazine) 25 mg PRN Q12HR PRN [place] NAUSEA/VOMITING; Start 11/14 at 19:15 Calcium Carbonate/ Glycine (Tums) 500 mg PRN Q3HRS PRN PO UPSET STOMACH; Start 03/08/19 at 19:15 Oxycodone HCl (Roxicodone) 5 mg PRN Q3HRS PRN PO BREAKTHROUGH PAIN Last administered on 03/09/19at 04:47; Start 03/08/19 at 19:15 Morphine Sulfate (Morphine Sulfate) 2 mg PRN Q2HR PRN IV PAIN Last administered on 03/09/19at 05:33; Start 03/08/19 at 19:15 Acetaminophen (Tylenol) 650 mg PRN Q6HRS PRN PO Headaches, Temp > 101.5F; Start 03/08/19 at 19:15 Piperacillin Sod/ Tazobactam Sod (Zosyn Per Pharmacy) 1 each PRN DAILY PRN MC SEE COMMENTS; Start 03/08/19 at 19:15 Hydralazine HCl (Apresoline Inj) 10 mg PRN Q4HRS PRN IVP ELEVATED BP, SEE COMMENTS; Start 03/08/19 at 19:15 Piperacillin Sod/ Tazobactam Sod 2.25 gm/Sodium Chloride 50 ml @ 100 mls/hr Q6HRS IV Last administered on 03/09/19at 05:12; Start 03/08/19 at 19:30 Ondansetron HCl (Zofran) 4 mg PRN Q8HRS PRN IV NAUSEA/VOMITING; Start 03/08/19 at 19:45; Stop 03/09/19 at 19:44; Status Cancel Morphine Sulfate (Morphine Sulfate) 4 mg PRN Q2HR PRN IV PAIN; Start 03/08/19 at 19:45; Stop 03/09/19 at 19:44; Status Cancel Sodium Chloride 1,000 ml @ 100 mls/hr 1X ONCE IV ; Start 03/08/19 at 19:45; Stop 03/09/19 at 05:44; Status Cancel Dextrose/Sodium Chloride 1,000 ml @ 75 mls/hr [id number] IV Last administered on 03/09/19at 05:31; Start 03/09/19 at 05:30 Ceftriaxone Sodium (Rocephin) 1 gm Q24H IVP ; Start 03/09/19 at 08:00; Stop at 08:01; Status DC Ipratropium Bradford (Atrovent) 0.5 mg RTQID NEB ; Start 03/09/19 at 08:00 Budesonide (Pulmicort) 0.5 mg RTBID NEB ; Start 03/09/19 at 08:00 Pantoprazole Sodium (PROTONIX VIAL for IV PUSH) 40 mg DAILYAC IVP Last administered on 03/09/19at 08:49; Start 03/09/19 at 08:15 Active Scripts Active Reported Zinc Sulfate 220 Mg Tablet 220 Mg PO DAILY Vitamin D3 (Cholecalciferol (Vitamin D3)) 5,000 Unit Tablet 2,000 Unit PO DAILY Stelara (Ustekinumab) 90 Mg/1 Ml Disp.syrin 90 Mg SQ EVERY 8 WEEKS Tamsulosin Hcl 0.4 Mg Cap.er.24h 1 Cap PO DAILY Prednisone 20 Mg Tablet 1 Tab PO BID Polyethylene Glycol 3350 255 Gm Powder 17 Gm PO DAILY Methotrexate (Methotrexate Sodium) 25 Mg/1 Ml Vial 25 Mg IJ WEEKLY Ensure Clear (Lactose-Reduced Food) 296 Ml Liquid 296 Ml PO 5XDAY Folic Acid 1 Mg Tablet 5 Tab PO DAILY Nexium Capsule (Esomeprazole Magnesium) 20 Mg Capsule.dr 20 Mg PO BID Eliquis (Apixaban) 5 Mg Tablet 5 Mg PO BID Carvedilol (Carvedilol) 12.5 Mg Tablet 12.5 Mg PO BIDWMEALS Calcium 600 + Vit D 200 Tablet (Calcium Carbonate/Vitamin D3) 1 Each Tablet 1 Each PO BID Bumetanide 2 Mg Tablet 1 Tab PO DAILY Allergies Allergies: Coded Allergies: No Known Drug Allergies (Unverified , 10/26/18) ROS Review of System Review of Systems Review of Systems Constitutional: Denies fever or chills [] Eyes: Denies change in visual acuity, redness, or eye pain [] HENT: Denies nasal congestion or sore throat [] Respiratory: wheezing, shortness of breath [] Cardiovascular: No additional information not addressed in HPI [] GI: Reports right upper quadrant abdominal pain radiating to the flank region, denies left upper quadrant, nausea, vomiting, bloody stools or diarrhea [] : Denies dysuria or hematuria [] Musculoskeletal: Denies back pain or joint pain [] Integument: Denies rash or skin lesions [] Neurologic: Denies headache, focal weakness or sensory changes [] 14 PT systems were reviewed and found to be within normal limits, except as documented General: No: Chills, Night Sweats, Fatigue, Malaise, Appetite, Other Hematological and Lymphatic: No: Bleeding Problems, Blood Clots, Blood Transfusions, Brusing, Night Sweats, Pallor, Swollen Lymph Nodes, Other Respiratory: No: Cough, Hemoptysis, Orthopnea, Pleuritic Pain, Shortness of breath, SOB with excertion, Sputum Changes, Stridor, Tachypnea, Wheezing, Other Gastrointestinal: Yes Abdominal Pain Physical Exam Physical Exam Physical Exam Physical Exam Constitutional: Well developed, well nourished, mild-mod acute distress, non- toxic appearance. [] HENT: Normocephalic, atraumatic, bilateral external ears normal, oropharynx moist, no oral exudates, nose normal. [] Eyes: PERRLA, EOMI, conjunctiva normal, no discharge. [] Neck: Normal range of motion, no tenderness, supple, no stridor. [] Cardiovascular:Heart rate regular rhythm, no murmur [] Lungs & Thorax: Bilateral exp wheezes [] Abdomen: Left upper abdomen noted for colostomy, nursing staff changing the bag right now the stoma has quit abit of edema. Bowel sounds normal, soft, diffuse tenderness to the right upper quadrant with positive Bradley sign, diffuse tenderness to the lower abdomen with no point tenderness specifically to the right lower quadrant, negative psoas sign, negative obturator sign, no masses, no pulsatile masses. [] Skin: Warm, dry, no erythema, no rash. [] Back: No tenderness, no CVA tenderness. [] Extremities: No tenderness, no cyanosis, no clubbing, ROM intact, no edema. [] Neurologic: Alert and oriented X 3, normal motor function, normal sensory function, no focal deficits noted. [] Psychologic: Affect normal, judgement normal, mood normal. [] General: Alert, Oriented X3, Cooperative, No acute distress HEENT: PERRLA Lungs: Other (wheezing, DEC BS rll) Heart: S1S2, RRR, no thrills Cardiovascular: S1 Rectal Exam: not examined PELVIC: Examination not indicated Extremities: No cyanosis, No edema Neuro: Normal speech, Strength at 5/5 X4 ext, Cranial nerves 3-12 NL Psych/Mental Status: Mental status NL, Mood NL Vitals Vitals Vital Signs Date Time Temp Pulse Resp B/P (MAP) Pulse Ox O2 Delivery O2 Flow Rate FiO2 03/09/19 07:00 98.9 114 24 120/75 (90) 96 Nasal Cannula 2.0 98.9 Labs Labs Laboratory Tests Test 03/08/19 15:50 03/08/19 16:30 03/08/19 19:34 03/09/19 03:00 White Blood Count 10.1 x10^3/uL (4.0-11.0) 12.5 x10^3/uL (4.0-11.0) Red Blood Count 2.90 x10^6/uL (4.30-5.70) 2.98 x10^6/uL (4.30-5.70) Hemoglobin 8.3 g/dL (13.0-17.5) 8.5 g/dL (13.0-17.5) Hematocrit 26.0 % (39.0-53.0) 26.8 % (39.0-53.0) Mean Corpuscular Volume 90 fL (79-100) 90 fL (79-100) Mean Corpuscular Hemoglobin 29 pg (25-35) 29 pg (25-35) Mean Corpuscular Hemoglobin Concent 32 g/dL (31-37) 32 g/dL (31-37) Red Cell Distribution Width 18.5 % (11.5-14.5) 18.2 % (11.5-14.5) Platelet Count 277 x10^3/uL (140-400) 329 x10^3/uL (140-400) Neutrophils (%) (Auto) 61 % (31-73) 63 % (31-73) Lymphocytes (%) (Auto) 12 % (24-48) 12 % (24-48) Monocytes (%) (Auto) 23 % (0-9) 19 % (0-9) Eosinophils (%) (Auto) 5 % (0-3) 5 % (0-3) Basophils (%) (Auto) 0 % (0-3) 1 % (0-3) Neutrophils # (Auto) 6.1 x10^3uL (1.8-7.7) 7.9 x10^3uL (1.8-7.7) Lymphocytes # (Auto) 1.2 x10^3/uL (1.0-4.8) 1.5 x10^3/uL (1.0-4.8) Monocytes # (Auto) 2.3 x10^3/uL (0.0-1.1) 2.4 x10^3/uL (0.0-1.1) Eosinophils # (Auto) 0.5 x10^3/uL (0.0-0.7) 0.6 x10^3/uL (0.0-0.7) Basophils # (Auto) 0.0 x10^3/uL (0.0-0.2) 0.1 x10^3/uL (0.0-0.2) Segmented Neutrophils % 73 % (35-66) Lymphocytes % 6 % (24-48) Monocytes % 15 % (0-10) Eosinophils % 6 % (0-5) Platelet Estimate Adequate (ADEQUATE) Polychromasia Slight Microcytosis Slight Macrocytosis Slight Sodium Level 137 mmol/L (136-145) 137 mmol/L (136-145) Potassium Level 4.8 mmol/L (3.5-5.1) 5.1 mmol/L (3.5-5.1) Chloride Level 103 mmol/L (98-107) 105 mmol/L (98-107) Carbon Dioxide Level 24 mmol/L (21-32) 21 mmol/L (21-32) Anion Gap 10 (6-14) 11 (6-14) Blood Urea Nitrogen 45 mg/dL (8-26) 40 mg/dL (8-26) Creatinine 2.3 mg/dL (0.7-1.3) 2.4 mg/dL (0.7-1.3) Estimated GFR (Cockcroft-Gault) 36.3 34.6 BUN/Creatinine Ratio 20 (6-20) Glucose Level 99 mg/dL (70-99) 67 mg/dL (70-99) Calcium Level 8.3 mg/dL (8.5-10.1) 8.1 mg/dL (8.5-10.1) Total Bilirubin 0.4 mg/dL (0.2-1.0) Aspartate Amino Transf (AST/SGOT) 18 U/L (15-37) Alanine Aminotransferase (ALT/SGPT) 18 U/L (16-63) Alkaline Phosphatase 146 U/L (46-116) Total Protein 7.1 g/dL (6.4-8.2) Albumin 2.3 g/dL (3.4-5.0) Albumin/Globulin Ratio 0.5 (1.0-1.7) Lipase 61 U/L (73-393) Urine Color Yellow Urine Clarity Clear Urine pH 7.5 Urine Specific [place] 1.015 Urine Protein 30 mg/dL (NEG-TRACE) Urine Glucose (UA) Negative mg/dL (NEG) Urine Ketones (Stick) Negative mg/dL (NEG) Urine Blood Small (NEG) Urine Nitrite Negative (NEG) Urine Bilirubin Negative (NEG) Urine Urobilinogen Dipstick 0.2 mg/dL (0.2 mg/dL) Urine Leukocyte Esterase Negative (NEG) Urine RBC 3-5 /HPF (0-2) Urine WBC Occ /HPF (0-4) Urine Squamous Epithelial Cells Occ /LPF Urine Bacteria 0 /HPF (0-FEW) Erythrocyte Sedimentation Rate 92 (0-15) Lactic Acid Level 0.6 mmol/L (0.4-2.0) Test 03/09/19 04:41 03/09/19 05:01 03/09/19 05:31 03/09/19 07:44 Glucose (Fingerstick) 54 mg/dL (70-99) 63 mg/dL (70-99) 83 mg/dL (70-99) 101 mg/dL (70-99) Laboratory Tests Test 03/08/19 15:50 03/08/19 16:30 03/08/19 19:34 03/09/19 03:00 White Blood Count 10.1 x10^3/uL (4.0-11.0) 12.5 x10^3/uL (4.0-11.0) Red Blood Count 2.90 x10^6/uL (4.30-5.70) 2.98 x10^6/uL (4.30-5.70) Hemoglobin 8.3 g/dL (13.0-17.5) 8.5 g/dL (13.0-17.5) Hematocrit 26.0 % (39.0-53.0) 26.8 % (39.0-53.0) Mean Corpuscular Volume 90 fL (79-100) 90 fL (79-100) Mean Corpuscular Hemoglobin 29 pg (25-35) 29 pg (25-35) Mean Corpuscular Hemoglobin Concent 32 g/dL (31-37) 32 g/dL (31-37) Red Cell Distribution Width 18.5 % (11.5-14.5) 18.2 % (11.5-14.5) Platelet Count 277 x10^3/uL (140-400) 329 x10^3/uL (140-400) Neutrophils (%) (Auto) 61 % (31-73) 63 % (31-73) Lymphocytes (%) (Auto) 12 % (24-48) 12 % (24-48) Monocytes (%) (Auto) 23 % (0-9) 19 % (0-9) Eosinophils (%) (Auto) 5 % (0-3) 5 % (0-3) Basophils (%) (Auto) 0 % (0-3) 1 % (0-3) Neutrophils # (Auto) 6.1 x10^3uL (1.8-7.7) 7.9 x10^3uL (1.8-7.7) Lymphocytes # (Auto) 1.2 x10^3/uL (1.0-4.8) 1.5 x10^3/uL (1.0-4.8) Monocytes # (Auto) 2.3 x10^3/uL (0.0-1.1) 2.4 x10^3/uL (0.0-1.1) Eosinophils # (Auto) 0.5 x10^3/uL (0.0-0.7) 0.6 x10^3/uL (0.0-0.7) Basophils # (Auto) 0.0 x10^3/uL (0.0-0.2) 0.1 x10^3/uL (0.0-0.2) Segmented Neutrophils % 73 % (35-66) Lymphocytes % 6 % (24-48) Monocytes % 15 % (0-10) Eosinophils % 6 % (0-5) Platelet Estimate Adequate (ADEQUATE) Polychromasia Slight Microcytosis Slight Macrocytosis Slight Sodium Level 137 mmol/L (136-145) 137 mmol/L (136-145) Potassium Level 4.8 mmol/L (3.5-5.1) 5.1 mmol/L (3.5-5.1) Chloride Level 103 mmol/L (98-107) 105 mmol/L (98-107) Carbon Dioxide Level 24 mmol/L (21-32) 21 mmol/L (21-32) Anion Gap 10 (6-14) 11 (6-14) Blood Urea Nitrogen 45 mg/dL (8-26) 40 mg/dL (8-26) Creatinine 2.3 mg/dL (0.7-1.3) 2.4 mg/dL (0.7-1.3) Estimated GFR (Cockcroft-Gault) 36.3 34.6 BUN/Creatinine Ratio 20 (6-20) Glucose Level 99 mg/dL (70-99) 67 mg/dL (70-99) Calcium Level 8.3 mg/dL (8.5-10.1) 8.1 mg/dL (8.5-10.1) Total Bilirubin 0.4 mg/dL (0.2-1.0) Aspartate Amino Transf (AST/SGOT) 18 U/L (15-37) Alanine Aminotransferase (ALT/SGPT) 18 U/L (16-63) Alkaline Phosphatase 146 U/L (46-116) Total Protein 7.1 g/dL (6.4-8.2) Albumin 2.3 g/dL (3.4-5.0) Albumin/Globulin Ratio 0.5 (1.0-1.7) Lipase 61 U/L (73-393) Urine Color Yellow Urine Clarity Clear Urine pH 7.5 Urine Specific [place] 1.015 Urine Protein 30 mg/dL (NEG-TRACE) Urine Glucose (UA) Negative mg/dL (NEG) Urine Ketones (Stick) Negative mg/dL (NEG) Urine Blood Small (NEG) Urine Nitrite Negative (NEG) Urine Bilirubin Negative (NEG) Urine Urobilinogen Dipstick 0.2 mg/dL (0.2 mg/dL) Urine Leukocyte Esterase Negative (NEG) Urine RBC 3-5 /HPF (0-2) Urine WBC Occ /HPF (0-4) Urine Squamous Epithelial Cells Occ /LPF Urine Bacteria 0 /HPF (0-FEW) Erythrocyte Sedimentation Rate 92 (0-15) Lactic Acid Level 0.6 mmol/L (0.4-2.0) Test 03/09/19 04:41 03/09/19 05:01 03/09/19 05:31 03/09/19 07:44 Glucose (Fingerstick) 54 mg/dL (70-99) 63 mg/dL (70-99) 83 mg/dL (70-99) 101 mg/dL (70-99) Images Images FINDINGS: Chest: Large right-sided pleural effusion with adjacent airspace consolidation. Only a small portion of the right lung is aerated. Mild opacity at left lung base. Port with tip at SVC. There is suspected enlarged lymph nodes within the mediastinum. Suspect that there is some mass effect on the mediastinum from the patient's pleural effusion. Limited evaluation of the vasculature without contrast. A ascending thoracic aorta measures up to about 41 mm but limited evaluation. This is mildly enlarged. There is a small amount soft tissue density in the anterior mediastinum. Abdomen and pelvis: Abdominal aorta not grossly aneurysmal. Cannot evaluate lumen on noncontrast exam. Inferior vena cava filter. Low-density lesion at hepatic dome measuring up to 16mm. Gallstones. Gallbladder somewhat distended at time of exam. Poor evaluation of pancreas without contrast. Spleen does not appear grossly enlarged. No left-sided hydronephrosis. Urinary bladder is partially distended. Left lower quadrant ostomy. No right-sided hydronephrosis. There is some apparent wall thickening of the colon including extending to the ostomy site. There is some haziness to the fat. Air-filled dilated loop of colon at left side of the abdomen measuring up to about 7 cm. Edema of soft tissues. Degenerative changes the spine with scoliotic curvature multilevel central canal and neural foraminal stenosis. Ossific densities within the soft tissues inferior to the right pelvis. Chronic appearance. IMPRESSION: 1. Wall thickening of the colon including adjacent to the ostomy site with adjacent edema. Can be seen with causes such as colitis and would correlate with symptoms in the region. 2. Dilated loop of colon is seen within the abdomen which could be from ileus or distal obstruction. 3. Large right-sided pleural effusion with adjacent airspace consolidation. Follow-up could be obtained to ensure this resolves. 4. Gallbladder somewhat distended at time of exam with gallstones. Low-density lesion at hepatic dome. Not well evaluated on noncontrast imaging but a common finding. If more complete characterization is desired a follow-up focused ultrasound could assess if this is solid or cystic on a nonemergent basis. Electronically signed by: Toma Morillo MD (03/08/2019 5:44 PM) [facility] DICTATED and SIGNED BY: TOMA MORILLO MD DATE: 03/08/19 1745 VTE Prophylaxis Ordered VTE Prophylaxis Devices: No VTE Pharmacological Prophylaxi: Yes Assessment/Plan Assessment/Plan Assessment/Plan Assessment/Plan acute hypoxic resp failure acute asthma exac s/p colostomy at [facility] PLANNED revision March 18 Large right-sided pleural effusion with adjacent airspace consolidation. Follow-up could be obtained to ensure this resolves. colitis cholelithiasis GB distention referral to [facility] to follow up with his surgeon DR JOYCE following iv steroids, albuterol pcxr CONSULT IR EMPERIC IV ANTIBIOTICS BLOOD CULT SCD'S 79 MIN PT EXAM, CHART REVIEW, > 50% OF TIME SPENT WITH EXAM, CHART REVIEW, PT CARE COORDINATION ROYA CAIN MD Mar 09, 2019 09:50
[2019-03-09 09:53] LABS: PROTHROMBIN TIME PATIENT 17.6 SEC (11.7-14.0)
[2019-03-09 11:00] VITALS: BP 133/85
[2019-03-09] MEDS: BUDESONIDE 0.5 MG/2 ML NEBU. NEB SCH ×2 (11:23→20:44)
--- NOTE | 2019-03-09 11:42 | NUR ---
Due to increase soa, I placed call to radiologist. He agreed to perform thoracentesis today. Consents prepared and nurse will have them signed.
--- NOTE | 2019-03-09 13:15 | PDOC ---
GI PROGRESS NOTES Date Date/Time DATE: 03/09/19 TIME: 13:14 Subjective Subjective Right back and flank pain- large pleural effusion hx Crohns disease full consult dictated- agree with present plans Objective Vitals Vital Signs Date Time Temp Pulse Resp B/P (MAP) Pulse Ox O2 Delivery O2 Flow Rate FiO2 03/09/19 11:26 98 Nasal Cannula 2.0 03/09/19 11:00 99.3 116 32 133/85 (101) 96 Nasal Cannula 2.0 99.3 03/09/19 08:00 Nasal Cannula 2.0 03/09/19 07:00 98.9 114 24 120/75 (90) 96 Nasal Cannula 2.0 98.9 03/09/19 06:03 Nasal Cannula 2.0 03/09/19 05:47 Nasal Cannula 2.0 03/09/19 05:33 Nasal Cannula 2.0 03/09/19 04:47 Nasal Cannula 2.0 03/09/19 03:49 98.3 122 20 143/93 (110) 87 Room Air 98.3 03/09/19 01:11 Room Air 03/09/19 01:11 Room Air 03/08/19 23:13 98.6 117 20 148/94 (112) 94 Room Air 98.6 03/08/19 23:08 Room Air 03/08/19 21:19 Nasal Cannula 03/08/19 21:00 Room Air 03/08/19 19:45 110 24 145/92 (109) 93 Room Air 03/08/19 18:45 111 24 148/91 (110) 94 Room Air 03/08/19 17:45 110 22 152/95 (114) 93 Room Air 03/08/19 16:57 112 24 148/96 (113) 94 Room Air 03/08/19 15:49 108 22 155/93 (113) 94 Room Air 03/08/19 14:57 98.8 113 18 159/98 (118) 95 Room Air 98.8 Labs Labs Laboratory Tests Test 03/08/19 15:50 03/08/19 16:30 03/08/19 19:34 03/09/19 03:00 White Blood Count 10.1 x10^3/uL (4.0-11.0) 12.5 x10^3/uL (4.0-11.0) Red Blood Count 2.90 x10^6/uL (4.30-5.70) 2.98 x10^6/uL (4.30-5.70) Hemoglobin 8.3 g/dL (13.0-17.5) 8.5 g/dL (13.0-17.5) Hematocrit 26.0 % (39.0-53.0) 26.8 % (39.0-53.0) Mean Corpuscular Volume 90 fL (79-100) 90 fL (79-100) Mean Corpuscular Hemoglobin 29 pg (25-35) 29 pg (25-35) Mean Corpuscular Hemoglobin Concent 32 g/dL (31-37) 32 g/dL (31-37) Red Cell Distribution Width 18.5 % (11.5-14.5) 18.2 % (11.5-14.5) Platelet Count 277 x10^3/uL (140-400) 329 x10^3/uL (140-400) Neutrophils (%) (Auto) 61 % (31-73) 63 % (31-73) Lymphocytes (%) (Auto) 12 % (24-48) 12 % (24-48) Monocytes (%) (Auto) 23 % (0-9) 19 % (0-9) Eosinophils (%) (Auto) 5 % (0-3) 5 % (0-3) Basophils (%) (Auto) 0 % (0-3) 1 % (0-3) Neutrophils # (Auto) 6.1 x10^3uL (1.8-7.7) 7.9 x10^3uL (1.8-7.7) Lymphocytes # (Auto) 1.2 x10^3/uL (1.0-4.8) 1.5 x10^3/uL (1.0-4.8) Monocytes # (Auto) 2.3 x10^3/uL (0.0-1.1) 2.4 x10^3/uL (0.0-1.1) Eosinophils # (Auto) 0.5 x10^3/uL (0.0-0.7) 0.6 x10^3/uL (0.0-0.7) Basophils # (Auto) 0.0 x10^3/uL (0.0-0.2) 0.1 x10^3/uL (0.0-0.2) Segmented Neutrophils % 73 % (35-66) Lymphocytes % 6 % (24-48) Monocytes % 15 % (0-10) Eosinophils % 6 % (0-5) Platelet Estimate Adequate (ADEQUATE) Polychromasia Slight Microcytosis Slight Macrocytosis Slight Sodium Level 137 mmol/L (136-145) 137 mmol/L (136-145) Potassium Level 4.8 mmol/L (3.5-5.1) 5.1 mmol/L (3.5-5.1) Chloride Level 103 mmol/L (98-107) 105 mmol/L (98-107) Carbon Dioxide Level 24 mmol/L (21-32) 21 mmol/L (21-32) Anion Gap 10 (6-14) 11 (6-14) Blood Urea Nitrogen 45 mg/dL (8-26) 40 mg/dL (8-26) Creatinine 2.3 mg/dL (0.7-1.3) 2.4 mg/dL (0.7-1.3) Estimated GFR (Cockcroft-Gault) 36.3 34.6 BUN/Creatinine Ratio 20 (6-20) Glucose Level 99 mg/dL (70-99) 67 mg/dL (70-99) Calcium Level 8.3 mg/dL (8.5-10.1) 8.1 mg/dL (8.5-10.1) Total Bilirubin 0.4 mg/dL (0.2-1.0) Aspartate Amino Transf (AST/SGOT) 18 U/L (15-37) Alanine Aminotransferase (ALT/SGPT) 18 U/L (16-63) Alkaline Phosphatase 146 U/L (46-116) Total Protein 7.1 g/dL (6.4-8.2) Albumin 2.3 g/dL (3.4-5.0) Albumin/Globulin Ratio 0.5 (1.0-1.7) Lipase 61 U/L (73-393) Urine Color Yellow Urine Clarity Clear Urine pH 7.5 Urine Specific [place] 1.015 Urine Protein 30 mg/dL (NEG-TRACE) Urine Glucose (UA) Negative mg/dL (NEG) Urine Ketones (Stick) Negative mg/dL (NEG) Urine Blood Small (NEG) Urine Nitrite Negative (NEG) Urine Bilirubin Negative (NEG) Urine Urobilinogen Dipstick 0.2 mg/dL (0.2 mg/dL) Urine Leukocyte Esterase Negative (NEG) Urine RBC 3-5 /HPF (0-2) Urine WBC Occ /HPF (0-4) Urine Squamous Epithelial Cells Occ /LPF Urine Bacteria 0 /HPF (0-FEW) Erythrocyte Sedimentation Rate 92 (0-15) Lactic Acid Level 0.6 mmol/L (0.4-2.0) Test 03/09/19 04:41 03/09/19 05:01 03/09/19 05:31 03/09/19 07:44 Glucose (Fingerstick) 54 mg/dL (70-99) 63 mg/dL (70-99) 83 mg/dL (70-99) 101 mg/dL (70-99) Test 03/09/19 09:00 Prothrombin Time 17.6 SEC (11.7-14.0) Prothromb Time International Ratio 1.5 (0.8-1.1) Activated Partial Thromboplast Time 52 SEC (24-38) Lactic Acid Level 0.7 mmol/L (0.4-2.0) Procalcitonin 1.67 ng/mL (0.00-0.10) HOA RIGGS MD Mar 09, 2019 13:15
[2019-03-09] MEDS: methylPREDNISolone SOD SUCC PF 125 MG/2 ML VIAL. IV SCH ×2 (14:19→21:41)
--- NOTE | 2019-03-09 14:25 | PDOC2 ---
CONSULT Date of Consult Date of Consult DATE: 03/09/19 TIME: 14:15 History of Present Illness Reason for Visit: THIS IS A 54 YR OLD WITH RUQ ABD PAIN. NOTED TO HAVE SOME GB DISTENTION ON IMAGING. NOTED TO HAVE DEFORMED OSTOMY STOMA FOR WHICH HE IS SCHEDULED FOR REVISION AT [facility]. SEEING SURGERY HERE NOW WELL. CR OF 2.4 BUT HAS CKD HE WAS TOLD THIS AT [facility]. HAS NOT SEEN AN NEPHROLOGY YET PER PT. NO HX OF ANY KIDNEY OR BLADDER SURGERIES HEMATURIA DYSURIA OR FREQUENCY NOTED. NO NEPHROTOXINS NOTED AND HEMODYNAMICALLY HE IS STABLE. LARGE PLEURAL EFFUSION NOTED ON THE RIGHT SIDE AND HE IS BEING EVALUATED BY PULMONARY FOR THIS. HE IS ALSO ANEMIA AND HAS LEUCOCYTOSIS. ON FLOMAX BUT NO PROBLEMS VOIDING NOW. KIDNEYS ARE MORPHOLOGICALLY NORMAL ON IMAGING Past Medical History Cardiovascular: HTN GI: Constipation, Inflam bowel disease, Other (CROHN'S ) Heme/Onc: Anemia NOS Renal/: Chronic renal insuff, Benign prostatic enlarg. Past Surgical History Past Surgical History: Colon Resection Family History Family History: Coronary Artery Disease Social History No ALCOHOL: none Drugs: None Current Problem List Problem List Problems Medical Problems: (1) ARF (acute renal failure) Status: Acute (2) Cholelithiasis Status: Acute (3) Pleural effusion on right Status: Acute Current Medications Current Medications Current Medications Sodium Chloride 1,000 ml @ 1,000 mls/hr 1X ONCE IV Last administered on at 15:30; Start 03/08/19 at 15:30; Stop 03/08/19 at 16:29; Status DC Ondansetron HCl (Zofran) 4 mg 1X ONCE IV ; Start 03/08/19 at 15:30; Stop at 15:31; Status DC Morphine Sulfate (Morphine Sulfate) 5 mg 1X ONCE IV ; Start 03/08/19 at 15:30; Stop 03/08/19 at 15:31; Status DC Sodium Chloride 1,000 ml @ 100 mls/hr Q10H IV Last administered on 03/08/19at 21:18; Start 03/08/19 at 19:04; Stop 03/09/19 at 05:25; Status DC Ondansetron HCl (Zofran) 4 mg PRN Q6HRS PRN IV NAUSEA/VOMITING, 1ST CHOICE; Start 03/08/19 at 19:15 Prochlorperazine Edisylate (Compazine) 10 mg PRN Q6HRS PRN IV NAUSEA/VOMITING, 2ND CHOICE; Start 03/08/19 at 19:15 Prochlorperazine (Compazine) 25 mg PRN Q12HR PRN RI NAUSEA/VOMITING; Start 11/14 at 19:15 Calcium Carbonate/ Glycine (Tums) 500 mg PRN Q3HRS PRN PO UPSET STOMACH; Start 03/08/19 at 19:15 Oxycodone HCl (Roxicodone) 5 mg PRN Q3HRS PRN PO BREAKTHROUGH PAIN Last administered on 03/09/19at 04:47; Start 03/08/19 at 19:15 Morphine Sulfate (Morphine Sulfate) 2 mg PRN Q2HR PRN IV PAIN Last administered on 03/09/19at 05:33; Start 03/08/19 at 19:15 Acetaminophen (Tylenol) 650 mg PRN Q6HRS PRN PO Headaches, Temp > 101.5F; Start 03/08/19 at 19:15 Piperacillin Sod/ Tazobactam Sod (Zosyn Per Pharmacy) 1 each PRN DAILY PRN MC SEE COMMENTS; Start 03/08/19 at 19:15 Hydralazine HCl (Apresoline Inj) 10 mg PRN Q4HRS PRN IVP ELEVATED BP, SEE COMMENTS; Start 03/08/19 at 19:15 Piperacillin Sod/ Tazobactam Sod 2.25 gm/Sodium Chloride 50 ml @ 100 mls/hr Q6HRS IV Last administered on 03/09/19at 12:21; Start 03/08/19 at 19:30 Ondansetron HCl (Zofran) 4 mg PRN Q8HRS PRN IV NAUSEA/VOMITING; Start 03/08/19 at 19:45; Stop 03/09/19 at 19:44; Status Cancel Morphine Sulfate (Morphine Sulfate) 4 mg PRN Q2HR PRN IV PAIN; Start 03/08/19 at 19:45; Stop 03/09/19 at 19:44; Status Cancel Sodium Chloride 1,000 ml @ 100 mls/hr 1X ONCE IV ; Start 03/08/19 at 19:45; Stop 03/09/19 at 05:44; Status Cancel Dextrose/Sodium Chloride 1,000 ml @ 75 mls/hr [id number] IV Last administered on 03/09/19at 05:31; Start 03/09/19 at 05:30 Ceftriaxone Sodium (Rocephin) 1 gm Q24H IVP ; Start 03/09/19 at 08:00; Stop at 08:01; Status DC Ipratropium Kyle (Atrovent) 0.5 mg RTQID NEB Last administered on 03/09/19at 11:23; Start 03/09/19 at 08:00 Budesonide (Pulmicort) 0.5 mg RTBID NEB Last administered on 03/09/19at 11:23; Start 03/09/19 at 08:00 Pantoprazole Sodium (PROTONIX VIAL for IV PUSH) 40 mg DAILYAC IVP Last administered on 03/09/19at 08:49; Start 03/09/19 at 08:15 Methylprednisolone Sodium Succinate (SOLU-Medrol 125MG VIAL) 100 mg Q8HRS IV ; Start 03/09/19 at 14:00 Lactobacillus Rhamnosus (Culturelle) 1 cap BID PO ; Start 03/09/19 at 21:00 Active Scripts Active Reported Zinc Sulfate 220 Mg Tablet 220 Mg PO DAILY Vitamin D3 (Cholecalciferol (Vitamin D3)) 5,000 Unit Tablet 2,000 Unit PO DAILY Stelara (Ustekinumab) 90 Mg/1 Ml Disp.syrin 90 Mg SQ EVERY 8 WEEKS Tamsulosin Hcl 0.4 Mg Cap.er.24h 1 Cap PO DAILY Prednisone 20 Mg Tablet 1 Tab PO BID Polyethylene Glycol 3350 255 Gm Powder 17 Gm PO DAILY Methotrexate (Methotrexate Sodium) 25 Mg/1 Ml Vial 25 Mg IJ WEEKLY Ensure Clear (Lactose-Reduced Food) 296 Ml Liquid 296 Ml PO 5XDAY Folic Acid 1 Mg Tablet 5 Tab PO DAILY Nexium Capsule (Esomeprazole Magnesium) 20 Mg Capsule.dr 20 Mg PO BID Eliquis (Apixaban) 5 Mg Tablet 5 Mg PO BID Carvedilol (Carvedilol) 12.5 Mg Tablet 12.5 Mg PO BIDWMEALS Calcium 600 + Vit D 200 Tablet (Calcium Carbonate/Vitamin D3) 1 Each Tablet 1 Each PO BID Bumetanide 2 Mg Tablet 1 Tab PO DAILY Allergies Allergies: Coded Allergies: No Known Drug Allergies (Unverified , 10/26/18) ROS General: YES: Fatigue, Malaise, Appetite PSYCHOLOGICAL ROS: YES: Depression Eyes: Yes Decreased vision HEENT: YES: Heacaches Respiratory: YES: Cough, Shortness of breath Cardiovascular: yes Orthopnea Gastrointestinal: Yes Abdominal Pain, Yes Constipation Genitourinary: YES Other (NOCTURIA) Musculoskeletal: Yes Muscular Weakness Neurological: Yes Weakness Skin: Yes Dry Skin Physical Exam General: Alert, Oriented X3, Cooperative, No acute distress HEENT: Atraumatic, PERRLA Lungs: Other (DECREASED AT RLB) Heart: Regular rate, Normal S1, Normal S2 Abdomen: Soft, No tenderness Extremities: No clubbing Skin: No breakdown Neuro: Normal speech Psych/Mental Status: Mental status NL, Mood NL MUSCULOSKELETAL: No joint tenderness, No deformity, Other (DIFFUSE MUSCLE ATROPHY) Vitals VITALS Vital Signs Date Time Temp Pulse Resp B/P (MAP) Pulse Ox O2 Delivery O2 Flow Rate FiO2 03/09/19 11:26 98 Nasal Cannula 2.0 03/09/19 11:00 99.3 116 32 133/85 (101) 99.3 Labs Labs Laboratory Tests Test 03/08/19 15:50 03/08/19 16:30 03/08/19 19:34 03/09/19 03:00 White Blood Count 10.1 x10^3/uL (4.0-11.0) 12.5 x10^3/uL (4.0-11.0) Red Blood Count 2.90 x10^6/uL (4.30-5.70) 2.98 x10^6/uL (4.30-5.70) Hemoglobin 8.3 g/dL (13.0-17.5) 8.5 g/dL (13.0-17.5) Hematocrit 26.0 % (39.0-53.0) 26.8 % (39.0-53.0) Mean Corpuscular Volume 90 fL (79-100) 90 fL (79-100) Mean Corpuscular Hemoglobin 29 pg (25-35) 29 pg (25-35) Mean Corpuscular Hemoglobin Concent 32 g/dL (31-37) 32 g/dL (31-37) Red Cell Distribution Width 18.5 % (11.5-14.5) 18.2 % (11.5-14.5) Platelet Count 277 x10^3/uL (140-400) 329 x10^3/uL (140-400) Neutrophils (%) (Auto) 61 % (31-73) 63 % (31-73) Lymphocytes (%) (Auto) 12 % (24-48) 12 % (24-48) Monocytes (%) (Auto) 23 % (0-9) 19 % (0-9) Eosinophils (%) (Auto) 5 % (0-3) 5 % (0-3) Basophils (%) (Auto) 0 % (0-3) 1 % (0-3) Neutrophils # (Auto) 6.1 x10^3uL (1.8-7.7) 7.9 x10^3uL (1.8-7.7) Lymphocytes # (Auto) 1.2 x10^3/uL (1.0-4.8) 1.5 x10^3/uL (1.0-4.8) Monocytes # (Auto) 2.3 x10^3/uL (0.0-1.1) 2.4 x10^3/uL (0.0-1.1) Eosinophils # (Auto) 0.5 x10^3/uL (0.0-0.7) 0.6 x10^3/uL (0.0-0.7) Basophils # (Auto) 0.0 x10^3/uL (0.0-0.2) 0.1 x10^3/uL (0.0-0.2) Segmented Neutrophils % 73 % (35-66) Lymphocytes % 6 % (24-48) Monocytes % 15 % (0-10) Eosinophils % 6 % (0-5) Platelet Estimate Adequate (ADEQUATE) Polychromasia Slight Microcytosis Slight Macrocytosis Slight Sodium Level 137 mmol/L (136-145) 137 mmol/L (136-145) Potassium Level 4.8 mmol/L (3.5-5.1) 5.1 mmol/L (3.5-5.1) Chloride Level 103 mmol/L (98-107) 105 mmol/L (98-107) Carbon Dioxide Level 24 mmol/L (21-32) 21 mmol/L (21-32) Anion Gap 10 (6-14) 11 (6-14) Blood Urea Nitrogen 45 mg/dL (8-26) 40 mg/dL (8-26) Creatinine 2.3 mg/dL (0.7-1.3) 2.4 mg/dL (0.7-1.3) Estimated GFR (Cockcroft-Gault) 36.3 34.6 BUN/Creatinine Ratio 20 (6-20) Glucose Level 99 mg/dL (70-99) 67 mg/dL (70-99) Calcium Level 8.3 mg/dL (8.5-10.1) 8.1 mg/dL (8.5-10.1) Total Bilirubin 0.4 mg/dL (0.2-1.0) Aspartate Amino Transf (AST/SGOT) 18 U/L (15-37) Alanine Aminotransferase (ALT/SGPT) 18 U/L (16-63) Alkaline Phosphatase 146 U/L (46-116) Total Protein 7.1 g/dL (6.4-8.2) Albumin 2.3 g/dL (3.4-5.0) Albumin/Globulin Ratio 0.5 (1.0-1.7) Lipase 61 U/L (73-393) Urine Color Yellow Urine Clarity Clear Urine pH 7.5 Urine Specific [place] 1.015 Urine Protein 30 mg/dL (NEG-TRACE) Urine Glucose (UA) Negative mg/dL (NEG) Urine Ketones (Stick) Negative mg/dL (NEG) Urine Blood Small (NEG) Urine Nitrite Negative (NEG) Urine Bilirubin Negative (NEG) Urine Urobilinogen Dipstick 0.2 mg/dL (0.2 mg/dL) Urine Leukocyte Esterase Negative (NEG) Urine RBC 3-5 /HPF (0-2) Urine WBC Occ /HPF (0-4) Urine Squamous Epithelial Cells Occ /LPF Urine Bacteria 0 /HPF (0-FEW) Erythrocyte Sedimentation Rate 92 (0-15) Lactic Acid Level 0.6 mmol/L (0.4-2.0) Test 03/09/19 04:41 03/09/19 05:01 03/09/19 05:31 03/09/19 07:44 Glucose (Fingerstick) 54 mg/dL (70-99) 63 mg/dL (70-99) 83 mg/dL (70-99) 101 mg/dL (70-99) Test 03/09/19 09:00 Prothrombin Time 17.6 SEC (11.7-14.0) Prothromb Time International Ratio 1.5 (0.8-1.1) Activated Partial Thromboplast Time 52 SEC (24-38) Lactic Acid Level 0.7 mmol/L (0.4-2.0) Procalcitonin 1.67 ng/mL (0.00-0.10) Laboratory Tests Test 03/08/19 15:50 03/08/19 16:30 03/08/19 19:34 03/09/19 03:00 White Blood Count 10.1 x10^3/uL (4.0-11.0) 12.5 x10^3/uL (4.0-11.0) Red Blood Count 2.90 x10^6/uL (4.30-5.70) 2.98 x10^6/uL (4.30-5.70) Hemoglobin 8.3 g/dL (13.0-17.5) 8.5 g/dL (13.0-17.5) Hematocrit 26.0 % (39.0-53.0) 26.8 % (39.0-53.0) Mean Corpuscular Volume 90 fL (79-100) 90 fL (79-100) Mean Corpuscular Hemoglobin 29 pg (25-35) 29 pg (25-35) Mean Corpuscular Hemoglobin Concent 32 g/dL (31-37) 32 g/dL (31-37) Red Cell Distribution Width 18.5 % (11.5-14.5) 18.2 % (11.5-14.5) Platelet Count 277 x10^3/uL (140-400) 329 x10^3/uL (140-400) Neutrophils (%) (Auto) 61 % (31-73) 63 % (31-73) Lymphocytes (%) (Auto) 12 % (24-48) 12 % (24-48) Monocytes (%) (Auto) 23 % (0-9) 19 % (0-9) Eosinophils (%) (Auto) 5 % (0-3) 5 % (0-3) Basophils (%) (Auto) 0 % (0-3) 1 % (0-3) Neutrophils # (Auto) 6.1 x10^3uL (1.8-7.7) 7.9 x10^3uL (1.8-7.7) Lymphocytes # (Auto) 1.2 x10^3/uL (1.0-4.8) 1.5 x10^3/uL (1.0-4.8) Monocytes # (Auto) 2.3 x10^3/uL (0.0-1.1) 2.4 x10^3/uL (0.0-1.1) Eosinophils # (Auto) 0.5 x10^3/uL (0.0-0.7) 0.6 x10^3/uL (0.0-0.7) Basophils # (Auto) 0.0 x10^3/uL (0.0-0.2) 0.1 x10^3/uL (0.0-0.2) Segmented Neutrophils % 73 % (35-66) Lymphocytes % 6 % (24-48) Monocytes % 15 % (0-10) Eosinophils % 6 % (0-5) Platelet Estimate Adequate (ADEQUATE) Polychromasia Slight Microcytosis Slight Macrocytosis Slight Sodium Level 137 mmol/L (136-145) 137 mmol/L (136-145) Potassium Level 4.8 mmol/L (3.5-5.1) 5.1 mmol/L (3.5-5.1) Chloride Level 103 mmol/L (98-107) 105 mmol/L (98-107) Carbon Dioxide Level 24 mmol/L (21-32) 21 mmol/L (21-32) Anion Gap 10 (6-14) 11 (6-14) Blood Urea Nitrogen 45 mg/dL (8-26) 40 mg/dL (8-26) Creatinine 2.3 mg/dL (0.7-1.3) 2.4 mg/dL (0.7-1.3) Estimated GFR (Cockcroft-Gault) 36.3 34.6 BUN/Creatinine Ratio 20 (6-20) Glucose Level 99 mg/dL (70-99) 67 mg/dL (70-99) Calcium Level 8.3 mg/dL (8.5-10.1) 8.1 mg/dL (8.5-10.1) Total Bilirubin 0.4 mg/dL (0.2-1.0) Aspartate Amino Transf (AST/SGOT) 18 U/L (15-37) Alanine Aminotransferase (ALT/SGPT) 18 U/L (16-63) Alkaline Phosphatase 146 U/L (46-116) Total Protein 7.1 g/dL (6.4-8.2) Albumin 2.3 g/dL (3.4-5.0) Albumin/Globulin Ratio 0.5 (1.0-1.7) Lipase 61 U/L (73-393) Urine Color Yellow Urine Clarity Clear Urine pH 7.5 Urine Specific [place] 1.015 Urine Protein 30 mg/dL (NEG-TRACE) Urine Glucose (UA) Negative mg/dL (NEG) Urine Ketones (Stick) Negative mg/dL (NEG) Urine Blood Small (NEG) Urine Nitrite Negative (NEG) Urine Bilirubin Negative (NEG) Urine Urobilinogen Dipstick 0.2 mg/dL (0.2 mg/dL) Urine Leukocyte Esterase Negative (NEG) Urine RBC 3-5 /HPF (0-2) Urine WBC Occ /HPF (0-4) Urine Squamous Epithelial Cells Occ /LPF Urine Bacteria 0 /HPF (0-FEW) Erythrocyte Sedimentation Rate 92 (0-15) Lactic Acid Level 0.6 mmol/L (0.4-2.0) Test 03/09/19 04:41 03/09/19 05:01 03/09/19 05:31 03/09/19 07:44 Glucose (Fingerstick) 54 mg/dL (70-99) 63 mg/dL (70-99) 83 mg/dL (70-99) 101 mg/dL (70-99) Test 03/09/19 09:00 Prothrombin Time 17.6 SEC (11.7-14.0) Prothromb Time International Ratio 1.5 (0.8-1.1) Activated Partial Thromboplast Time 52 SEC (24-38) Lactic Acid Level 0.7 mmol/L (0.4-2.0) Procalcitonin 1.67 ng/mL (0.00-0.10) Assessment/Plan Assessment/Plan IMP IVANA WITH CKD STAGE 3 TO 4-BASELINE CR LESS THAN 2.0 ON AVG DEHYDRATION ACUTE RESP FAILURE LARGE RIGHT PLEURAL EFFUSION CHOLELITHIASIS AND BLADDER DISTENTION HX OF OSTOMY DUE TO CROHN'S PLAN HOLD HIS BUMEX AVOID NEPHROTOXINS HYDRATION THORACENTESIS SURGICAL REPAIR OF OSTOMY MARLENA BANDA MD Mar 09, 2019 14:25
[2019-03-09 15:00] VITALS: BP 120/81
--- NOTE | 2019-03-09 15:23 | CONS ---
DATE OF CONSULTATION: 03/09/2019 I was asked to see this 54-year-old gentleman for pleural effusion. HISTORY OF PRESENT ILLNESS: He is a lifelong nonsmoker. He denies any lung disease. He has Crohn disease, underwent a colostomy in 10/2019 at [facility]. He does get his care at [facility]. He has had abdominal pain for the past 2-3 days. He denies cough, sputum production, fever or chills. He denies nausea, vomiting. PAST MEDICAL HISTORY: Crohn disease, status post bowel resection, colostomy. ALLERGIES: No known drug allergies. MEDICATIONS: Currently, he is on IV fluid, Zosyn, morphine. SOCIAL HISTORY: He is a lifelong nonsmoker, does not drink. FAMILY HISTORY: He is adopted. REVIEW OF SYSTEMS: As mentioned as above, other systems otherwise negative. PHYSICAL EXAMINATION: GENERAL: This is a malnourished gentleman. VITAL SIGNS: His O2 saturation on 2 liters of oxygen is 96%, respiratory rate 22, heart rate 114. Blood pressure 120/75, temperature 98.9. HEENT: Normocephalic, atraumatic. Pupils equal, round, reactive to light. Throat is clear. Nose is clear. NECK: There is no JVD, lymphadenopathy or thyromegaly. CARDIOVASCULAR: Tachycardic. CHEST: Inspection is normal. LUNGS: There is bilateral end expiratory wheezing. Right lung dullness up to half a lung field. ABDOMEN: Distended, diminished bowel sounds. There is a colostomy in place. EXTREMITIES: There is no edema. LYMPHATICS: There is no lymphadenopathy. NEUROLOGIC: Alert and oriented. SKIN: Chronic changes. LABORATORY DATA: I reviewed the following lab data: CT of the chest does show large right-sided pleural effusion with consolidation. CT of abdomen did show wall thickening of the colon with adjacent edema, can be seen with colitis, dilated loop of colon is seen with abdomen, could be from an ileus or distal obstruction. Gallbladder is somewhat distended. WBC 12.5, hemoglobin 8.5, platelets 329. Sodium 137, potassium 5.1, chloride 105, CO2 of 21, BUN 40, creatinine 2.4. Lactic acid 0.6. Lipase is 61, AST 18, ALT 18, alkaline phosphatase 146. IMPRESSION: 1. Acute respiratory failure secondary to large pleural effusion, cannot rule out pneumonia, intra abdominal infection or sepsis versus others. 2. Abnormal CT of the chest with large right pleural effusion, infiltrate, atelectasis, questionable etiology. 3. Anemia. 4. Leukocytosis. 5. Acute kidney injury. 6. Abdominal pain, questionable colitis versus ileus versus others. 7. Wheezing, acute bronchospasm. 8. History of Crohn disease, status post bowel resection and colostomy. PLAN AND RECOMMENDATIONS: 1. Titrate FiO2 to keep O2 saturation 92%. 2. Start bronchodilator, Atrovent only, he is tachycardic. 3. Agree with IV fluid. 4. Repeat lactic acid, check a procalcitonin. 5. Continue Zosyn. 6. Start Protonix for stress ulcer prophylaxis and SCDs for DVT prophylaxis. 7. I do recommend a right ultrasound-guided thoracentesis, it will be ordered. Pleural fluid will be sent for Gram stain and culture, pH and cytology, cell count, total glucose, LDH and protein. We will do LDH, protein, glucose at the same time. 8. Start inhaled corticosteroid. 9. I do recommend surgery consultation to r/o acute abdomen if not done. 10. The findings and recommendations were discussed with the patient. He understood and agreed to proceed with the plan. I have answered all of his questions. Thank you very much for allowing me to participate in care of this very nice gentleman. LARRY OROPEZA M.D. CARIDAD Witt JOB#: [id number] / [id number] ROBERT
--- NOTE | 2019-03-09 15:23 | CONS ---
DATE OF CONSULTATION: 03/09/2019 CHIEF COMPLAINT: Back and right-sided pain, history of Crohn disease, abnormal CT. HISTORY OF PRESENT ILLNESS: This is a 54-year-old gentleman who has a history of Crohn disease, but has been managed and followed at [facility]. He is presently on medication, for Crohn's (Stelera?) , but was in the past on Remicade. He felt like it did no work and had some sort of surgical resection back the last fall with a colostomy. Some sort of obstruction history was given, but the details are not clear. He has had trouble with the ostomy with some protrusion and discomfort and has a planned revision of the ostomy in 10 days. He presents now with a new symptom of back pain, both left and right-sided back pain, and right flank pain. This seems to be new, was not associated with any change in bowel activity. He is having good bowel function through his ostomy. He denies any fever or shortness of breath. At the time of presentation here, he was found to have a large pleural effusion, incidentally also had gallstones, but without biliary obstruction. He has an ostomy with protrusion of the ostomy and some mild nonspecific inflammation on the CT, but it was a noncontrast study and we were asked to see him. In discussions with him, it sounds like he has had Remicade infusion in the past, but we do not have the details and presently he is on no active treatment for his Crohn's. We do not have any idea about the location or severity of his Crohn's disease in the past. It is a bit unusual to have a colon resection with ostomy unless there was isolated obstructive disease in the distal colon. PAST MEDICAL HISTORY: Crohn disease. PAST SURGICAL HISTORY: Bowel resection with colostomy in 2018. SOCIAL HISTORY: Does not smoke or drink. FAMILY HISTORY: Positive for heart disease, but negative for inflammatory bowel disease. ALLERGIES: None are reported. MEDICATIONS: Was on methotrexate apparently for his Crohn disease, Stelara which he is on for Crohn disease by the record, but it is not recalled by the patient; prednisone, Coreg, Eliquis, bumetanide, p.r.n. medications as well. REVIEW OF SYSTEMS: CONSTITUTIONAL: Chest pain, right-sided back and abdominal pain. No fever or chills. HEENT: No headache or blurred vision. PULMONARY: Some mild shortness of breath. CARDIOVASCULAR: No chest pain specifically. GENITOURINARY: No change in urinary pattern. NEUROLOGIC: Denies seizures or paralysis. MUSCULOSKELETAL: Denies acute arthritis or arthralgias. PHYSICAL EXAMINATION: VITAL SIGNS: Pulse is 116. His blood pressure is 133/85, temperature is 99.3. GENERAL: He is awake and alert, in mild distress from his pain. HEENT: He is anicteric. CHEST: Few rhonchi. Decreased breath sounds in the right base. ABDOMEN: Soft, nontender. Ostomy in the left upper quadrant with some protrusion of the ostomy. No obvious tenderness in this area. Bowel sounds are present. No right upper quadrant tenderness is appreciated. RECTAL: Deferred. EXTREMITIES: No cyanosis, clubbing. NEUROLOGIC: Alert and oriented. LABORATORY DATA: Hemoglobin is 8.5, white blood cell count 12,500, platelet count 329,000. Chemistries are normal except for a BUN of 45, creatinine 2.3, calcium 8.3. Liver function studies are normal except for an alkaline phosphatase of 146, lipase normal at 61. IMAGING: Shows gallstones, shows a large right pleural effusion, no biliary obstruction. Ostomy in the left upper quadrant, some very minimal inflammation or thickening in the colon that might represent colitis, but is nonspecific with a noncontrasted study. ASSESSMENT: 1. More right flank and right back pain, probably related to the pleural effusion. He is undergoing thoracentesis. He does have gallstones, but is not tender specifically over the gallbladder, has no obstructive findings on imaging or labs. This certainly needs to be monitored, does not appear to be the source of his pain. In addition, he has no evidence for bowel obstruction that might contribute to his symptoms as well. 2. History of Crohn disease, previously on Remicade and now on Stelara and methotrexate. His history is limited, but reviewing the chart reveals active treatment. We do not understand why he had a diverting colostomy at this point, but do not have the records to confirm the activity of his disease at this point. We will defer management of course to [facility] and he has an appointment soon to revise his ostomy where hopefully they can review his treatment program. PLAN: 1. Would not adjust or treat differently his Crohn disease at this time. 2. We will defer surgical intervention to the [facility]'s surgeons regarding revision of his ostomy or even consideration of elective removal of gallbladder. 3. Agree with drainage of the pleural effusion and monitor response to therapy. 4. Continue to monitor symptoms and response. HOA RIGGS MD DR: SILVERIO/vika JOB#: [id number] / [id number] ROBERT
--- NOTE | 2019-03-09 15:51 | NUR ---
Found out from engineering technologist that radiologist left at 3pm. I told the tech we were waiting for this pt to have a thoracentesis. That I spoke to Dr King this morning and reviewed the chart and orders. Dr King planned on doing the procedure today. I then found out that this pt was mixed up with a pt on another floor. When the chart was checked on the other pt, consents were not signed. Radiologist is gone for the day. Radiology requested I call the IR doctor jana. Dr Dey called me back and is unable to perform this procedure unless it is an emergency. Then he would need to be called by a physician to request the procedure. At this time the procedure will be done tomorrow unless there is a change in pts status. I also spoke to the pts nurse as well as the nursing day care supervisor.
[2019-03-09 19:31] VITALS: BP 143/91
[2019-03-09] MEDS: LACTOBACILLUS RHAMNOSUS GG 1 CAPSULE. PO SCH (21:40)
[2019-03-09 23:27] VITALS: BP 133/53
[2019-03-10] VITALS (7 sets, daily range): BP systolic 108–132; BP diastolic 70–83
[2019-03-10] MEDS: PIPERACILLIN/TAZOBACTAM 2.25 GM in IV NORMAL SALINE 50ML 50 ML IV SCH ×5 (00:58→23:22)
[2019-03-10] MEDS: methylPREDNISolone SOD SUCC PF 125 MG/2 ML VIAL. IV SCH ×3 (06:02→22:32)
[2019-03-10 07:28] LABS: BASO % 0 % (0-3); EOS % 0 % (0-3); HEMATOCRIT 27.2 % (39.0-53.0); HEMOGLOBIN 8.6 g/dL (13.0-17.5); LYMPH # 0.5 x10^3/uL (1.0-4.8); LYMPH % 5 % (24-48); MEAN CORPUSCULAR HEMOGLOBIN 28 pg (25-35); MEAN CORPUSCULAR HGB CONC 32 g/dL (31-37); MEAN CORPUSCULAR VOLUME 89 fL (79-100); MONO # 0.7 x10^3/uL (0.0-1.1); MONO % 6 % (0-9); NEUT # 10.9 x10^3uL (1.8-7.7); NEUT % 89 % (31-73); PLATELET COUNT 343 x10^3/uL (140-400); RED BLOOD COUNT 3.05 x10^6/uL (4.30-5.70); WHITE BLOOD COUNT 12.2 x10^3/uL (4.0-11.0)
--- NOTE | 2019-03-10 07:34 | PDOC ---
PULMONARY PROGRESS NOTES Subjective sob better, has occ cough, no pain, thoracentesis today Vitals Vital Signs Date Time Temp Pulse Resp B/P (MAP) Pulse Ox O2 Delivery O2 Flow Rate FiO2 03/10/19 03:23 98.1 85 22 125/82 (96) 94 Nasal Cannula 2.0 98.1 ROS: No Nausea, No Chest Pain General: Alert, Oriented X4 HEENT: Other (nc at perrl ) Lungs: Crackles, Other (dull on r side) Cardiovascular: S1, S2 Abdomen: Soft, Non-tender Neuro Exam: Alert Extremities: No Edema Skin: Warm Labs Laboratory Tests Test 03/08/19 15:50 03/08/19 16:30 03/08/19 19:34 03/09/19 03:00 White Blood Count 10.1 x10^3/uL (4.0-11.0) 12.5 x10^3/uL (4.0-11.0) Red Blood Count 2.90 x10^6/uL (4.30-5.70) 2.98 x10^6/uL (4.30-5.70) Hemoglobin 8.3 g/dL (13.0-17.5) 8.5 g/dL (13.0-17.5) Hematocrit 26.0 % (39.0-53.0) 26.8 % (39.0-53.0) Mean Corpuscular Volume 90 fL (79-100) 90 fL (79-100) Mean Corpuscular Hemoglobin 29 pg (25-35) 29 pg (25-35) Mean Corpuscular Hemoglobin Concent 32 g/dL (31-37) 32 g/dL (31-37) Red Cell Distribution Width 18.5 % (11.5-14.5) 18.2 % (11.5-14.5) Platelet Count 277 x10^3/uL (140-400) 329 x10^3/uL (140-400) Neutrophils (%) (Auto) 61 % (31-73) 63 % (31-73) Lymphocytes (%) (Auto) 12 % (24-48) 12 % (24-48) Monocytes (%) (Auto) 23 % (0-9) 19 % (0-9) Eosinophils (%) (Auto) 5 % (0-3) 5 % (0-3) Basophils (%) (Auto) 0 % (0-3) 1 % (0-3) Neutrophils # (Auto) 6.1 x10^3uL (1.8-7.7) 7.9 x10^3uL (1.8-7.7) Lymphocytes # (Auto) 1.2 x10^3/uL (1.0-4.8) 1.5 x10^3/uL (1.0-4.8) Monocytes # (Auto) 2.3 x10^3/uL (0.0-1.1) 2.4 x10^3/uL (0.0-1.1) Eosinophils # (Auto) 0.5 x10^3/uL (0.0-0.7) 0.6 x10^3/uL (0.0-0.7) Basophils # (Auto) 0.0 x10^3/uL (0.0-0.2) 0.1 x10^3/uL (0.0-0.2) Segmented Neutrophils % 73 % (35-66) Lymphocytes % 6 % (24-48) Monocytes % 15 % (0-10) Eosinophils % 6 % (0-5) Platelet Estimate Adequate (ADEQUATE) Polychromasia Slight Microcytosis Slight Macrocytosis Slight Sodium Level 137 mmol/L (136-145) 137 mmol/L (136-145) Potassium Level 4.8 mmol/L (3.5-5.1) 5.1 mmol/L (3.5-5.1) Chloride Level 103 mmol/L (98-107) 105 mmol/L (98-107) Carbon Dioxide Level 24 mmol/L (21-32) 21 mmol/L (21-32) Anion Gap 10 (6-14) 11 (6-14) Blood Urea Nitrogen 45 mg/dL (8-26) 40 mg/dL (8-26) Creatinine 2.3 mg/dL (0.7-1.3) 2.4 mg/dL (0.7-1.3) Estimated GFR (Cockcroft-Gault) 36.3 34.6 BUN/Creatinine Ratio 20 (6-20) Glucose Level 99 mg/dL (70-99) 67 mg/dL (70-99) Calcium Level 8.3 mg/dL (8.5-10.1) 8.1 mg/dL (8.5-10.1) Total Bilirubin 0.4 mg/dL (0.2-1.0) Aspartate Amino Transf (AST/SGOT) 18 U/L (15-37) Alanine Aminotransferase (ALT/SGPT) 18 U/L (16-63) Alkaline Phosphatase 146 U/L (46-116) Total Protein 7.1 g/dL (6.4-8.2) Albumin 2.3 g/dL (3.4-5.0) Albumin/Globulin Ratio 0.5 (1.0-1.7) Lipase 61 U/L (73-393) Urine Color Yellow Urine Clarity Clear Urine pH 7.5 Urine Specific [place] 1.015 Urine Protein 30 mg/dL (NEG-TRACE) Urine Glucose (UA) Negative mg/dL (NEG) Urine Ketones (Stick) Negative mg/dL (NEG) Urine Blood Small (NEG) Urine Nitrite Negative (NEG) Urine Bilirubin Negative (NEG) Urine Urobilinogen Dipstick 0.2 mg/dL (0.2 mg/dL) Urine Leukocyte Esterase Negative (NEG) Urine RBC 3-5 /HPF (0-2) Urine WBC Occ /HPF (0-4) Urine Squamous Epithelial Cells Occ /LPF Urine Bacteria 0 /HPF (0-FEW) Erythrocyte Sedimentation Rate 92 (0-15) Lactic Acid Level 0.6 mmol/L (0.4-2.0) Test 03/09/19 04:41 03/09/19 05:01 03/09/19 05:31 03/09/19 07:44 Glucose (Fingerstick) 54 mg/dL (70-99) 63 mg/dL (70-99) 83 mg/dL (70-99) 101 mg/dL (70-99) Test 03/09/19 09:00 03/10/19 07:05 Prothrombin Time 17.6 SEC (11.7-14.0) Prothromb Time International Ratio 1.5 (0.8-1.1) Activated Partial Thromboplast Time 52 SEC (24-38) Lactic Acid Level 0.7 mmol/L (0.4-2.0) Procalcitonin 1.67 ng/mL (0.00-0.10) White Blood Count 12.2 x10^3/uL (4.0-11.0) Red Blood Count 3.05 x10^6/uL (4.30-5.70) Hemoglobin 8.6 g/dL (13.0-17.5) Hematocrit 27.2 % (39.0-53.0) Mean Corpuscular Volume 89 fL (79-100) Mean Corpuscular Hemoglobin 28 pg (25-35) Mean Corpuscular Hemoglobin Concent 32 g/dL (31-37) Red Cell Distribution Width 18.0 % (11.5-14.5) Platelet Count 343 x10^3/uL (140-400) Neutrophils (%) (Auto) 89 % (31-73) Lymphocytes (%) (Auto) 5 % (24-48) Monocytes (%) (Auto) 6 % (0-9) Eosinophils (%) (Auto) 0 % (0-3) Basophils (%) (Auto) 0 % (0-3) Neutrophils # (Auto) 10.9 x10^3uL (1.8-7.7) Lymphocytes # (Auto) 0.5 x10^3/uL (1.0-4.8) Monocytes # (Auto) 0.7 x10^3/uL (0.0-1.1) Eosinophils # (Auto) 0.0 x10^3/uL (0.0-0.7) Basophils # (Auto) 0.0 x10^3/uL (0.0-0.2) Laboratory Tests Test 03/09/19 07:44 03/09/19 09:00 03/10/19 07:05 Glucose (Fingerstick) 101 mg/dL (70-99) Prothrombin Time 17.6 SEC (11.7-14.0) Prothromb Time International Ratio 1.5 (0.8-1.1) Activated Partial Thromboplast Time 52 SEC (24-38) Lactic Acid Level 0.7 mmol/L (0.4-2.0) Procalcitonin 1.67 ng/mL (0.00-0.10) White Blood Count 12.2 x10^3/uL (4.0-11.0) Red Blood Count 3.05 x10^6/uL (4.30-5.70) Hemoglobin 8.6 g/dL (13.0-17.5) Hematocrit 27.2 % (39.0-53.0) Mean Corpuscular Volume 89 fL (79-100) Mean Corpuscular Hemoglobin 28 pg (25-35) Mean Corpuscular Hemoglobin Concent 32 g/dL (31-37) Red Cell Distribution Width 18.0 % (11.5-14.5) Platelet Count 343 x10^3/uL (140-400) Neutrophils (%) (Auto) 89 % (31-73) Lymphocytes (%) (Auto) 5 % (24-48) Monocytes (%) (Auto) 6 % (0-9) Eosinophils (%) (Auto) 0 % (0-3) Basophils (%) (Auto) 0 % (0-3) Neutrophils # (Auto) 10.9 x10^3uL (1.8-7.7) Lymphocytes # (Auto) 0.5 x10^3/uL (1.0-4.8) Monocytes # (Auto) 0.7 x10^3/uL (0.0-1.1) Eosinophils # (Auto) 0.0 x10^3/uL (0.0-0.7) Basophils # (Auto) 0.0 x10^3/uL (0.0-0.2) Medications Active Scripts Medications Dose Route/Sig Max Daily Dose Days Date Category Zinc Sulfate 220 Mg Tablet 220 Mg PO DAILY 10/26/18 Reported Vitamin D3 (Cholecalciferol (Vitamin D3)) 5,000 Unit Tablet 2,000 Unit PO DAILY 10/26/18 Reported Stelara (Ustekinumab) 90 Mg/1 Ml Disp.syrin 90 Mg SQ EVERY 8 WEEKS 10/26/18 Reported Tamsulosin Hcl 0.4 Mg Cap.er.24h 1 Cap PO DAILY 10/26/18 Reported Prednisone 20 Mg Tablet 1 Tab PO BID 10/26/18 Reported Polyethylene Glycol 3350 255 Gm Powder 17 Gm PO DAILY 10/26/18 Reported Methotrexate (Methotrexate Sodium) 25 Mg/1 Ml Vial 25 Mg IJ WEEKLY 10/26/18 Reported Ensure Clear (Lactose-Reduced Food) 296 Ml Liquid 296 Ml PO 5XDAY 10/26/18 Reported Folic Acid 1 Mg Tablet 5 Tab PO DAILY 10/26/18 Reported Nexium Capsule (Esomeprazole Magnesium) 20 Mg Capsule.dr 20 Mg PO BID 10/26/18 Reported Eliquis (Apixaban) 5 Mg Tablet 5 Mg PO BID 10/26/18 Reported Carvedilol (Carvedilol) 12.5 Mg Tablet 12.5 Mg PO BIDWMEALS 10/26/18 Reported Calcium 600 + Vit D 200 Tablet (Calcium Carbonate/Vitamin D3) 1 Each Tablet 1 Each PO BID 10/26/18 Reported Bumetanide 2 Mg Tablet 1 Tab PO DAILY 10/26/18 Reported Impression . IMPRESSION: 1. Acute respiratory failure secondary to large pleural effusion, cannot rule out pneumonia, intra abdominal infection or sepsis versus others. 2. Abnormal CT of the chest with large right pleural effusion, infiltrate, atelectasis, questionable etiology. 3. Anemia. 4. Leukocytosis. 5. Acute kidney injury. 6. Abdominal pain, questionable colitis versus ileus versus others. 7. Wheezing, acute bronchospasm. 8. History of Crohn disease, status post bowel resection and colostomy. Plan . PLAN AND RECOMMENDATIONS: 1. Titrate FiO2 to keep O2 saturation 92%. 2. bronchodilator, Atrovent only, he was tachycardic. 3. IV fluid. 4. Repeat lactic acid, check a procalcitonin. 5. Continue Zosyn. 6. Protonix for stress ulcer prophylaxis and SCDs for DVT prophylaxis. 7. right ultrasound-guided thoracentesis, will be done today. Pleural fluid will be sent for Gram stain and culture, pH and cytology, cell count w diff, total glucose, LDH and protein. We will do LDH, protein, glucose at the same time. 8. inhaled corticosteroid. 9. surgery consulted discussed w rn, pt LARRY OROPEZA MD Mar 10, 2019 07:34
[2019-03-10 07:54] LABS: ALBUMIN 1.9 g/dL (3.4-5.0); ALBUMIN/GLOBULIN RATIO 0.4 (1.0-1.7); CALCIUM 7.9 mg/dL (8.5-10.1); CREATININE 2.9 mg/dL (0.7-1.3); GFR 27.8; POTASSIUM 5.2 mmol/L (3.5-5.1); TOTAL BILIRUBIN 0.6 mg/dL (0.2-1.0)
[2019-03-10] MEDS: BUDESONIDE 0.5 MG/2 ML NEBU. NEB SCH ×2 (08:09→20:18)
[2019-03-10] MEDS: IPRATROPIUM BROMIDE 0.5 MG/2.5 ML NEBU. NEB SCH ×4 (08:09→20:18)
[2019-03-10] MEDS: PANTOPRAZOLE IV PUSH 40 MG VIAL. IVP SCH (08:31)
[2019-03-10] MEDS: LACTOBACILLUS RHAMNOSUS GG 1 CAPSULE. PO SCH ×2 (09:00→22:30)
[2019-03-10] MEDS: IV DEXTROSE 5 %-0.45 % NACL 1,000 ML IV SCH ×2 (09:24→22:35)
--- NOTE | 2019-03-10 10:17 | PDOC ---
Provider Note Provider Note SURG for thoracentesis today no new gen surg recs NATHEN JOYCE MD Mar 10, 2019 10:17
--- NOTE | 2019-03-10 11:12 | PDOC ---
GI PROGRESS NOTES Date Date/Time DATE: 03/10/19 TIME: 11:11 Subjective Subjective in radiology for thoracentesis Objective Vitals Vital Signs Date Time Temp Pulse Resp B/P (MAP) Pulse Ox O2 Delivery O2 Flow Rate FiO2 03/10/19 08:10 95 Nasal Cannula 2.0 03/10/19 08:00 Nasal Cannula 2.0 03/10/19 07:00 97.5 83 20 121/71 (88) 98 Nasal Cannula 2.0 97.5 03/10/19 03:23 98.1 85 22 125/82 (96) 94 Nasal Cannula 2.0 98.1 03/09/19 23:27 98.1 87 24 133/53 (79) 99 Nasal Cannula 2.0 98.1 03/09/19 22:41 Nasal Cannula 2.0 03/09/19 21:41 Nasal Cannula 03/09/19 20:44 97 Nasal Cannula 2.0 03/09/19 20:00 Nasal Cannula 2.0 03/09/19 19:31 97.9 92 30 143/91 (108) 98 Nasal Cannula 2.0 97.9 03/09/19 15:34 97 Nasal Cannula 2.0 03/09/19 15:00 98.6 117 34 120/81 (94) 94 Nasal Cannula 2.0 98.6 03/09/19 11:26 98 Nasal Cannula 2.0 Labs Labs Laboratory Tests Test 03/10/19 07:05 White Blood Count 12.2 x10^3/uL (4.0-11.0) Red Blood Count 3.05 x10^6/uL (4.30-5.70) Hemoglobin 8.6 g/dL (13.0-17.5) Hematocrit 27.2 % (39.0-53.0) Mean Corpuscular Volume 89 fL (79-100) Mean Corpuscular Hemoglobin 28 pg (25-35) Mean Corpuscular Hemoglobin Concent 32 g/dL (31-37) Red Cell Distribution Width 18.0 % (11.5-14.5) Platelet Count 343 x10^3/uL (140-400) Neutrophils (%) (Auto) 89 % (31-73) Lymphocytes (%) (Auto) 5 % (24-48) Monocytes (%) (Auto) 6 % (0-9) Eosinophils (%) (Auto) 0 % (0-3) Basophils (%) (Auto) 0 % (0-3) Neutrophils # (Auto) 10.9 x10^3uL (1.8-7.7) Lymphocytes # (Auto) 0.5 x10^3/uL (1.0-4.8) Monocytes # (Auto) 0.7 x10^3/uL (0.0-1.1) Eosinophils # (Auto) 0.0 x10^3/uL (0.0-0.7) Basophils # (Auto) 0.0 x10^3/uL (0.0-0.2) Sodium Level 137 mmol/L (136-145) Potassium Level 5.2 mmol/L (3.5-5.1) Chloride Level 104 mmol/L (98-107) Carbon Dioxide Level 18 mmol/L (21-32) Anion Gap 15 (6-14) Blood Urea Nitrogen 49 mg/dL (8-26) Creatinine 2.9 mg/dL (0.7-1.3) Estimated GFR (Cockcroft-Gault) 27.8 BUN/Creatinine Ratio 17 (6-20) Glucose Level 212 mg/dL (70-99) Calcium Level 7.9 mg/dL (8.5-10.1) Total Bilirubin 0.6 mg/dL (0.2-1.0) Aspartate Amino Transf (AST/SGOT) 31 U/L (15-37) Alanine Aminotransferase (ALT/SGPT) 46 U/L (16-63) Alkaline Phosphatase 139 U/L (46-116) Total Protein 7.0 g/dL (6.4-8.2) Albumin 1.9 g/dL (3.4-5.0) Albumin/Globulin Ratio 0.4 (1.0-1.7) HOA RIGGS MD Mar 10, 2019 11:12
--- NOTE | 2019-03-10 11:38 | RAD ---
AP chest HISTORY: Post thoracentesis, Right effusion AP view was taken of the chest. Left lung is clear. There is been an improvement in the right pleural effusion. Right Port-A-Cath is unchanged. There is no pneumothorax. There is persistent consolidation in the right lung base. IMPRESSION: 1. Improved right pleural effusion, no pneumothorax. Electronically signed by: Sedrick King MD (03/10/2019 11:35 AM) [facility]
--- NOTE | 2019-03-10 11:50 | PDOC ---
PROGRESS NOTES History of Present Illness History of Present Illness VTE Prophylaxis Ordered VTE Prophylaxis Devices: No VTE Pharmacological Prophylaxi: Yes Assessment/Plan Assessment/Plan Assessment/Plan Assessment/Plan acute hypoxic resp failure acute asthma exac s/p colostomy at [facility] PLANNED revision March 18 Large right-sided pleural effusion with adjacent airspace consolidation. Follow-up could be obtained to ensure this resolves. Improved right pleural effusion, no pneumothorax. 03/10 POST THORACENTESIS colitis cholelithiasis GB distention acute renal failure, ATN referral to [facility] to follow up with his surgeon DR JOYCE following iv steroids, albuterol pcxr CONSULT IR EMPERIC IV ANTIBIOTICS BLOOD CULT SCD'S 49 MIN PT EXAM, CHART REVIEW, > 50% OF TIME SPENT WITH EXAM, CHART REVIEW, PT CARE COORDINATION Vitals Vitals Vital Signs Date Time Temp Pulse Resp B/P (MAP) Pulse Ox O2 Delivery O2 Flow Rate FiO2 03/10/19 11:48 84 127/81 (96) 03/10/19 11:00 97.3 18 95 Nasal Cannula 2.0 97.3 Physical Exam General: Alert, Oriented X3, Cooperative, No acute distress Heart: Regular rate, Normal S1, Normal S2 Lungs: Clear, Crackles, Other (dull on r side) Abdomen: Normal bowel sounds, Soft, No tenderness Extremities: No clubbing, No cyanosis, No edema Skin: No breakdown, No significant lesion Labs LABS AP chest HISTORY: Post thoracentesis, Right effusion AP view was taken of the chest. Left lung is clear. There is been an improvement in the right pleural effusion. Right Port-A-Cath is unchanged. There is no pneumothorax. There is persistent consolidation in the right lung base. IMPRESSION: 1. Improved right pleural effusion, no pneumothorax. Electronically signed by: Lara Lozano MD (03/10/2019 11:35 AM) [facility] DICTATED and SIGNED BY: LARA LOZANO MD DATE: 03/10/19 1135 Laboratory Tests Test 03/10/19 07:05 White Blood Count 12.2 x10^3/uL (4.0-11.0) Red Blood Count 3.05 x10^6/uL (4.30-5.70) Hemoglobin 8.6 g/dL (13.0-17.5) Hematocrit 27.2 % (39.0-53.0) Mean Corpuscular Volume 89 fL (79-100) Mean Corpuscular Hemoglobin 28 pg (25-35) Mean Corpuscular Hemoglobin Concent 32 g/dL (31-37) Red Cell Distribution Width 18.0 % (11.5-14.5) Platelet Count 343 x10^3/uL (140-400) Neutrophils (%) (Auto) 89 % (31-73) Lymphocytes (%) (Auto) 5 % (24-48) Monocytes (%) (Auto) 6 % (0-9) Eosinophils (%) (Auto) 0 % (0-3) Basophils (%) (Auto) 0 % (0-3) Neutrophils # (Auto) 10.9 x10^3uL (1.8-7.7) Lymphocytes # (Auto) 0.5 x10^3/uL (1.0-4.8) Monocytes # (Auto) 0.7 x10^3/uL (0.0-1.1) Eosinophils # (Auto) 0.0 x10^3/uL (0.0-0.7) Basophils # (Auto) 0.0 x10^3/uL (0.0-0.2) Sodium Level 137 mmol/L (136-145) Potassium Level 5.2 mmol/L (3.5-5.1) Chloride Level 104 mmol/L (98-107) Carbon Dioxide Level 18 mmol/L (21-32) Anion Gap 15 (6-14) Blood Urea Nitrogen 49 mg/dL (8-26) Creatinine 2.9 mg/dL (0.7-1.3) Estimated GFR (Cockcroft-Gault) 27.8 BUN/Creatinine Ratio 17 (6-20) Glucose Level 212 mg/dL (70-99) Calcium Level 7.9 mg/dL (8.5-10.1) Total Bilirubin 0.6 mg/dL (0.2-1.0) Aspartate Amino Transf (AST/SGOT) 31 U/L (15-37) Alanine Aminotransferase (ALT/SGPT) 46 U/L (16-63) Alkaline Phosphatase 139 U/L (46-116) Total Protein 7.0 g/dL (6.4-8.2) Albumin 1.9 g/dL (3.4-5.0) Albumin/Globulin Ratio 0.4 (1.0-1.7) Assessment and Plan Assessmemt and Plan Problems Medical Problems: (1) ARF (acute renal failure) Status: Acute (2) Cholelithiasis Status: Acute (3) Pleural effusion on right Status: Acute Comment Review of Relevant I have reviewed the following items martin (where applicable) has been applied. Labs Laboratory Tests Test 03/08/19 15:50 03/08/19 16:30 03/08/19 19:34 03/09/19 03:00 White Blood Count 10.1 x10^3/uL (4.0-11.0) 12.5 x10^3/uL (4.0-11.0) Red Blood Count 2.90 x10^6/uL (4.30-5.70) 2.98 x10^6/uL (4.30-5.70) Hemoglobin 8.3 g/dL (13.0-17.5) 8.5 g/dL (13.0-17.5) Hematocrit 26.0 % (39.0-53.0) 26.8 % (39.0-53.0) Mean Corpuscular Volume 90 fL (79-100) 90 fL (79-100) Mean Corpuscular Hemoglobin 29 pg (25-35) 29 pg (25-35) Mean Corpuscular Hemoglobin Concent 32 g/dL (31-37) 32 g/dL (31-37) Red Cell Distribution Width 18.5 % (11.5-14.5) 18.2 % (11.5-14.5) Platelet Count 277 x10^3/uL (140-400) 329 x10^3/uL (140-400) Neutrophils (%) (Auto) 61 % (31-73) 63 % (31-73) Lymphocytes (%) (Auto) 12 % (24-48) 12 % (24-48) Monocytes (%) (Auto) 23 % (0-9) 19 % (0-9) Eosinophils (%) (Auto) 5 % (0-3) 5 % (0-3) Basophils (%) (Auto) 0 % (0-3) 1 % (0-3) Neutrophils # (Auto) 6.1 x10^3uL (1.8-7.7) 7.9 x10^3uL (1.8-7.7) Lymphocytes # (Auto) 1.2 x10^3/uL (1.0-4.8) 1.5 x10^3/uL (1.0-4.8) Monocytes # (Auto) 2.3 x10^3/uL (0.0-1.1) 2.4 x10^3/uL (0.0-1.1) Eosinophils # (Auto) 0.5 x10^3/uL (0.0-0.7) 0.6 x10^3/uL (0.0-0.7) Basophils # (Auto) 0.0 x10^3/uL (0.0-0.2) 0.1 x10^3/uL (0.0-0.2) Segmented Neutrophils % 73 % (35-66) Lymphocytes % 6 % (24-48) Monocytes % 15 % (0-10) Eosinophils % 6 % (0-5) Platelet Estimate Adequate (ADEQUATE) Polychromasia Slight Microcytosis Slight Macrocytosis Slight Sodium Level 137 mmol/L (136-145) 137 mmol/L (136-145) Potassium Level 4.8 mmol/L (3.5-5.1) 5.1 mmol/L (3.5-5.1) Chloride Level 103 mmol/L (98-107) 105 mmol/L (98-107) Carbon Dioxide Level 24 mmol/L (21-32) 21 mmol/L (21-32) Anion Gap 10 (6-14) 11 (6-14) Blood Urea Nitrogen 45 mg/dL (8-26) 40 mg/dL (8-26) Creatinine 2.3 mg/dL (0.7-1.3) 2.4 mg/dL (0.7-1.3) Estimated GFR (Cockcroft-Gault) 36.3 34.6 BUN/Creatinine Ratio 20 (6-20) Glucose Level 99 mg/dL (70-99) 67 mg/dL (70-99) Calcium Level 8.3 mg/dL (8.5-10.1) 8.1 mg/dL (8.5-10.1) Total Bilirubin 0.4 mg/dL (0.2-1.0) Aspartate Amino Transf (AST/SGOT) 18 U/L (15-37) Alanine Aminotransferase (ALT/SGPT) 18 U/L (16-63) Alkaline Phosphatase 146 U/L (46-116) Total Protein 7.1 g/dL (6.4-8.2) Albumin 2.3 g/dL (3.4-5.0) Albumin/Globulin Ratio 0.5 (1.0-1.7) Lipase 61 U/L (73-393) Urine Color Yellow Urine Clarity Clear Urine pH 7.5 Urine Specific [place] 1.015 Urine Protein 30 mg/dL (NEG-TRACE) Urine Glucose (UA) Negative mg/dL (NEG) Urine Ketones (Stick) Negative mg/dL (NEG) Urine Blood Small (NEG) Urine Nitrite Negative (NEG) Urine Bilirubin Negative (NEG) Urine Urobilinogen Dipstick 0.2 mg/dL (0.2 mg/dL) Urine Leukocyte Esterase Negative (NEG) Urine RBC 3-5 /HPF (0-2) Urine WBC Occ /HPF (0-4) Urine Squamous Epithelial Cells Occ /LPF Urine Bacteria 0 /HPF (0-FEW) Erythrocyte Sedimentation Rate 92 (0-15) Lactic Acid Level 0.6 mmol/L (0.4-2.0) Test 03/09/19 04:41 03/09/19 05:01 03/09/19 05:31 03/09/19 07:44 Glucose (Fingerstick) 54 mg/dL (70-99) 63 mg/dL (70-99) 83 mg/dL (70-99) 101 mg/dL (70-99) Test 03/09/19 09:00 03/10/19 07:05 Prothrombin Time 17.6 SEC (11.7-14.0) Prothromb Time International Ratio 1.5 (0.8-1.1) Activated Partial Thromboplast Time 52 SEC (24-38) Lactic Acid Level 0.7 mmol/L (0.4-2.0) Procalcitonin 1.67 ng/mL (0.00-0.10) White Blood Count 12.2 x10^3/uL (4.0-11.0) Red Blood Count 3.05 x10^6/uL (4.30-5.70) Hemoglobin 8.6 g/dL (13.0-17.5) Hematocrit 27.2 % (39.0-53.0) Mean Corpuscular Volume 89 fL (79-100) Mean Corpuscular Hemoglobin 28 pg (25-35) Mean Corpuscular Hemoglobin Concent 32 g/dL (31-37) Red Cell Distribution Width 18.0 % (11.5-14.5) Platelet Count 343 x10^3/uL (140-400) Neutrophils (%) (Auto) 89 % (31-73) Lymphocytes (%) (Auto) 5 % (24-48) Monocytes (%) (Auto) 6 % (0-9) Eosinophils (%) (Auto) 0 % (0-3) Basophils (%) (Auto) 0 % (0-3) Neutrophils # (Auto) 10.9 x10^3uL (1.8-7.7) Lymphocytes # (Auto) 0.5 x10^3/uL (1.0-4.8) Monocytes # (Auto) 0.7 x10^3/uL (0.0-1.1) Eosinophils # (Auto) 0.0 x10^3/uL (0.0-0.7) Basophils # (Auto) 0.0 x10^3/uL (0.0-0.2) Sodium Level 137 mmol/L (136-145) Potassium Level 5.2 mmol/L (3.5-5.1) Chloride Level 104 mmol/L (98-107) Carbon Dioxide Level 18 mmol/L (21-32) Anion Gap 15 (6-14) Blood Urea Nitrogen 49 mg/dL (8-26) Creatinine 2.9 mg/dL (0.7-1.3) Estimated GFR (Cockcroft-Gault) 27.8 BUN/Creatinine Ratio 17 (6-20) Glucose Level 212 mg/dL (70-99) Calcium Level 7.9 mg/dL (8.5-10.1) Total Bilirubin 0.6 mg/dL (0.2-1.0) Aspartate Amino Transf (AST/SGOT) 31 U/L (15-37) Alanine Aminotransferase (ALT/SGPT) 46 U/L (16-63) Alkaline Phosphatase 139 U/L (46-116) Total Protein 7.0 g/dL (6.4-8.2) Albumin 1.9 g/dL (3.4-5.0) Albumin/Globulin Ratio 0.4 (1.0-1.7) Laboratory Tests Test 03/10/19 07:05 White Blood Count 12.2 x10^3/uL (4.0-11.0) Red Blood Count 3.05 x10^6/uL (4.30-5.70) Hemoglobin 8.6 g/dL (13.0-17.5) Hematocrit 27.2 % (39.0-53.0) Mean Corpuscular Volume 89 fL (79-100) Mean Corpuscular Hemoglobin 28 pg (25-35) Mean Corpuscular Hemoglobin Concent 32 g/dL (31-37) Red Cell Distribution Width 18.0 % (11.5-14.5) Platelet Count 343 x10^3/uL (140-400) Neutrophils (%) (Auto) 89 % (31-73) Lymphocytes (%) (Auto) 5 % (24-48) Monocytes (%) (Auto) 6 % (0-9) Eosinophils (%) (Auto) 0 % (0-3) Basophils (%) (Auto) 0 % (0-3) Neutrophils # (Auto) 10.9 x10^3uL (1.8-7.7) Lymphocytes # (Auto) 0.5 x10^3/uL (1.0-4.8) Monocytes # (Auto) 0.7 x10^3/uL (0.0-1.1) Eosinophils # (Auto) 0.0 x10^3/uL (0.0-0.7) Basophils # (Auto) 0.0 x10^3/uL (0.0-0.2) Sodium Level 137 mmol/L (136-145) Potassium Level 5.2 mmol/L (3.5-5.1) Chloride Level 104 mmol/L (98-107) Carbon Dioxide Level 18 mmol/L (21-32) Anion Gap 15 (6-14) Blood Urea Nitrogen 49 mg/dL (8-26) Creatinine 2.9 mg/dL (0.7-1.3) Estimated GFR (Cockcroft-Gault) 27.8 BUN/Creatinine Ratio 17 (6-20) Glucose Level 212 mg/dL (70-99) Calcium Level 7.9 mg/dL (8.5-10.1) Total Bilirubin 0.6 mg/dL (0.2-1.0) Aspartate Amino Transf (AST/SGOT) 31 U/L (15-37) Alanine Aminotransferase (ALT/SGPT) 46 U/L (16-63) Alkaline Phosphatase 139 U/L (46-116) Total Protein 7.0 g/dL (6.4-8.2) Albumin 1.9 g/dL (3.4-5.0) Albumin/Globulin Ratio 0.4 (1.0-1.7) Microbiology 03/09/19 Blood Culture - Preliminary, Resulted NO GROWTH AFTER 1 DAY Medications Current Medications Sodium Chloride 1,000 ml @ 1,000 mls/hr 1X ONCE IV Last administered on at 15:30; Start 03/08/19 at 15:30; Stop 03/08/19 at 16:29; Status DC Ondansetron HCl (Zofran) 4 mg 1X ONCE IV ; Start 03/08/19 at 15:30; Stop at 15:31; Status DC Morphine Sulfate (Morphine Sulfate) 5 mg 1X ONCE IV ; Start 03/08/19 at 15:30; Stop 03/08/19 at 15:31; Status DC Sodium Chloride 1,000 ml @ 100 mls/hr Q10H IV Last administered on 03/08/19at 21:18; Start 03/08/19 at 19:04; Stop 03/09/19 at 05:25; Status DC Ondansetron HCl (Zofran) 4 mg PRN Q6HRS PRN IV NAUSEA/VOMITING, 1ST CHOICE; Start 03/08/19 at 19:15 Prochlorperazine Edisylate (Compazine) 10 mg PRN Q6HRS PRN IV NAUSEA/VOMITING, 2ND CHOICE; Start 03/08/19 at 19:15 Prochlorperazine (Compazine) 25 mg PRN Q12HR PRN IN NAUSEA/VOMITING; Start 11/14 at 19:15 Calcium Carbonate/ Glycine (Tums) 500 mg PRN Q3HRS PRN PO UPSET STOMACH; Start 03/08/19 at 19:15 Oxycodone HCl (Roxicodone) 5 mg PRN Q3HRS PRN PO BREAKTHROUGH PAIN Last administered on 03/09/19at 21:41; Start 03/08/19 at 19:15 Morphine Sulfate (Morphine Sulfate) 2 mg PRN Q2HR PRN IV PAIN Last administered on 03/09/19at 05:33; Start 03/08/19 at 19:15 Acetaminophen (Tylenol) 650 mg PRN Q6HRS PRN PO Headaches, Temp > 101.5F; Start 03/08/19 at 19:15 Piperacillin Sod/ Tazobactam Sod (Zosyn Per Pharmacy) 1 each PRN DAILY PRN MC SEE COMMENTS; Start 03/08/19 at 19:15 Hydralazine HCl (Apresoline Inj) 10 mg PRN Q4HRS PRN IVP ELEVATED BP, SEE COMMENTS; Start 03/08/19 at 19:15 Piperacillin Sod/ Tazobactam Sod 2.25 gm/Sodium Chloride 50 ml @ 100 mls/hr Q6HRS IV Last administered on 03/10/19at 06:00; Start 03/08/19 at 19:30 Ondansetron HCl (Zofran) 4 mg PRN Q8HRS PRN IV NAUSEA/VOMITING; Start 03/08/19 at 19:45; Stop 03/09/19 at 19:44; Status Cancel Morphine Sulfate (Morphine Sulfate) 4 mg PRN Q2HR PRN IV PAIN; Start 03/08/19 at 19:45; Stop 03/09/19 at 19:44; Status Cancel Sodium Chloride 1,000 ml @ 100 mls/hr 1X ONCE IV ; Start 03/08/19 at 19:45; Stop 03/09/19 at 05:44; Status Cancel Dextrose/Sodium Chloride 1,000 ml @ 75 mls/hr [id number] IV Last administered on 03/10/19at 09:24; Start 03/09/19 at 05:30 Ceftriaxone Sodium (Rocephin) 1 gm Q24H IVP ; Start 03/09/19 at 08:00; Stop at 08:01; Status DC Ipratropium [place] (Atrovent) 0.5 mg RTQID NEB Last administered on 03/10/19at 08:09; Start 03/09/19 at 08:00 Budesonide (Pulmicort) 0.5 mg RTBID NEB Last administered on 03/10/19at 08:09; Start 03/09/19 at 08:00 Pantoprazole Sodium (PROTONIX VIAL for IV PUSH) 40 mg DAILYAC IVP Last administered on 03/10/19at 08:31; Start 03/09/19 at 08:15 Methylprednisolone Sodium Succinate (SOLU-Medrol 125MG VIAL) 100 mg Q8HRS IV Last administered on 03/10/19at 06:02; Start 03/09/19 at 14:00 Lactobacillus Rhamnosus (Culturelle) 1 cap BID PO Last administered on at 21:40; Start 03/09/19 at 21:00 Active Scripts Active Reported Zinc Sulfate 220 Mg Tablet 220 Mg PO DAILY Vitamin D3 (Cholecalciferol (Vitamin D3)) 5,000 Unit Tablet 2,000 Unit PO DAILY Stelara (Ustekinumab) 90 Mg/1 Ml Disp.syrin 90 Mg SQ EVERY 8 WEEKS Tamsulosin Hcl 0.4 Mg Cap.er.24h 1 Cap PO DAILY Prednisone 20 Mg Tablet 1 Tab PO BID Polyethylene Glycol 3350 255 Gm Powder 17 Gm PO DAILY Methotrexate (Methotrexate Sodium) 25 Mg/1 Ml Vial 25 Mg IJ WEEKLY Ensure Clear (Lactose-Reduced Food) 296 Ml Liquid 296 Ml PO 5XDAY Folic Acid 1 Mg Tablet 5 Tab PO DAILY Nexium Capsule (Esomeprazole Magnesium) 20 Mg Capsule.dr 20 Mg PO BID Eliquis (Apixaban) 5 Mg Tablet 5 Mg PO BID Carvedilol (Carvedilol) 12.5 Mg Tablet 12.5 Mg PO BIDWMEALS Calcium 600 + Vit D 200 Tablet (Calcium Carbonate/Vitamin D3) 1 Each Tablet 1 Each PO BID Bumetanide 2 Mg Tablet 1 Tab PO DAILY Vitals/I & O Vital Sign - Last 24 Hours 03/09/19 03/09/19 03/09/19 03/09/19 15:00 15:34 19:31 20:00 Temp 98.6 97.9 98.6 97.9 Pulse 117 92 Resp 34 30 B/P (MAP) 120/81 (94) 143/91 (108) Pulse Ox 94 97 98 O2 Delivery Nasal Cannula Nasal Cannula Nasal Cannula Nasal Cannula O2 Flow Rate 2.0 2.0 2.0 2.0 03/09/19 03/09/19 03/09/19 03/09/19 20:44 21:41 22:41 23:27 Temp 98.1 98.1 Pulse 87 Resp 24 B/P (MAP) 133/53 (79) Pulse Ox 97 99 O2 Delivery Nasal Cannula Nasal Cannula Nasal Cannula Nasal Cannula O2 Flow Rate 2.0 2.0 2.0 03/10/19 03/10/19 03/10/19 03/10/19 03:23 07:00 08:00 08:10 Temp 98.1 97.5 98.1 97.5 Pulse 85 83 Resp 22 20 B/P (MAP) 125/82 (96) 121/71 (88) Pulse Ox 94 98 95 O2 Delivery Nasal Cannula Nasal Cannula Nasal Cannula Nasal Cannula O2 Flow Rate 2.0 2.0 2.0 2.0 03/10/19 03/10/19 11:00 11:48 Temp 97.3 97.3 Pulse 84 84 Resp 18 B/P (MAP) 115/81 (92) 127/81 (96) Pulse Ox 95 O2 Delivery Nasal Cannula O2 Flow Rate 2.0 Intake and Output 03/09/19 03/09/19 03/10/19 14:59 22:59 06:59 Intake Total 0 ml 0 ml 0 ml Output Total 260 ml 700 ml Balance 0 ml -260 ml -700 ml ROYA CAIN MD Mar 10, 2019 11:50
--- NOTE | 2019-03-10 11:57 | RAD ---
Ultrasound-guided thoracentesis. HISTORY: Right pleural effusion Ultrasound demonstrated a multiloculated right pleural effusion. The largest collection was noted superiorly in the pleural space. There is atelectatic lung. The skin was prepped with ChloraPrep. Lidocaine was used for local anesthesia. Under direct ultrasound guidance a safety centesis needle was advanced into the fluid collection. The sheath was left in position. 1 L of cloudy bloody fluid was aspirated. Fluid was sent to lab for evaluation. IMPRESSION: 1. Multiloculated pleural effusion. 2. Aspiration of 1 L from the right hemithorax. Electronically signed by: Sedrick King MD (03/10/2019 11:54 AM) [facility]
--- NOTE | 2019-03-10 12:10 | PDOC ---
Renal-Progress Notes Subjective Notes Notes SOB History of Present Illness Hx of present illness NEEDS THORACENTESIS TODAY Vitals Vitals Vital Signs Date Time Temp Pulse Resp B/P (MAP) Pulse Ox O2 Delivery O2 Flow Rate FiO2 03/10/19 11:55 Nasal Cannula 2.0 03/10/19 11:48 84 127/81 (96) 03/10/19 11:00 97.3 18 95 97.3 Weight Weight [ ] I.O. Intake and Output Intake and Output 03/10/19 07:00 Intake Total 0 ml Output Total 960 ml Balance -960 ml Intake Oral 0 ml Output Urine Total 940 ml Stool Total 20 ml Labs Labs Laboratory Tests Test 03/10/19 07:05 White Blood Count 12.2 x10^3/uL (4.0-11.0) Red Blood Count 3.05 x10^6/uL (4.30-5.70) Hemoglobin 8.6 g/dL (13.0-17.5) Hematocrit 27.2 % (39.0-53.0) Mean Corpuscular Volume 89 fL (79-100) Mean Corpuscular Hemoglobin 28 pg (25-35) Mean Corpuscular Hemoglobin Concent 32 g/dL (31-37) Red Cell Distribution Width 18.0 % (11.5-14.5) Platelet Count 343 x10^3/uL (140-400) Neutrophils (%) (Auto) 89 % (31-73) Lymphocytes (%) (Auto) 5 % (24-48) Monocytes (%) (Auto) 6 % (0-9) Eosinophils (%) (Auto) 0 % (0-3) Basophils (%) (Auto) 0 % (0-3) Neutrophils # (Auto) 10.9 x10^3uL (1.8-7.7) Lymphocytes # (Auto) 0.5 x10^3/uL (1.0-4.8) Monocytes # (Auto) 0.7 x10^3/uL (0.0-1.1) Eosinophils # (Auto) 0.0 x10^3/uL (0.0-0.7) Basophils # (Auto) 0.0 x10^3/uL (0.0-0.2) Sodium Level 137 mmol/L (136-145) Potassium Level 5.2 mmol/L (3.5-5.1) Chloride Level 104 mmol/L (98-107) Carbon Dioxide Level 18 mmol/L (21-32) Anion Gap 15 (6-14) Blood Urea Nitrogen 49 mg/dL (8-26) Creatinine 2.9 mg/dL (0.7-1.3) Estimated GFR (Cockcroft-Gault) 27.8 BUN/Creatinine Ratio 17 (6-20) Glucose Level 212 mg/dL (70-99) Calcium Level 7.9 mg/dL (8.5-10.1) Total Bilirubin 0.6 mg/dL (0.2-1.0) Aspartate Amino Transf (AST/SGOT) 31 U/L (15-37) Alanine Aminotransferase (ALT/SGPT) 46 U/L (16-63) Alkaline Phosphatase 139 U/L (46-116) Total Protein 7.0 g/dL (6.4-8.2) Albumin 1.9 g/dL (3.4-5.0) Albumin/Globulin Ratio 0.4 (1.0-1.7) Micro Micro Microbiology 03/09/19 Blood Culture - Preliminary, Resulted NO GROWTH AFTER 1 DAY Review of Systems Constitutional: yes: alert, oriented Eyes: Yes: no symptom reported Pulmonary: Yes dyspnea Cardiovascular: Yes no symptom reported Gastrointestional: Yes: diarrhea Genitourinary: Yes: no symptom reported Musculoskeletal: Yes: no symptom reported Skin: Yes no symptom reported Psychiatric/Neurological: Yes: no symptom reported Endocrine: Yes: no symptom reported Physical Exam General Appearance: no apparent distress Skin: warm Respiratory: decreased breath sounds Heart: S1S2 Abdomen: soft, bowel sounds present Genitourinary: bladder flat Extremities: pulses present Neurology: alert, oriented Assessment Assessment IMP IVANA WITH CKD STAGE 3 TO 4-BASELINE CR LESS THAN 2.0 ON AVG-CR UP TO 2.9 DEHYDRATION ACUTE RESP FAILURE LARGE RIGHT PLEURAL EFFUSION CHOLELITHIASIS AND BLADDER DISTENTION 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
[2019-03-10 13:31] LABS: BF CLARITY TURBID; BF COLOR RED; BF MON % 11 %; BF OTHER % 0 %; BF PMN % 89 %; BF RBC COUNT 37451 /cmm (Not Established); BF SOURCE PLEURAL; BF WBC COUNT 1749 /cmm (Not Established)
[2019-03-10] MEDS: oxyCODONE IR 5 MG TABLET PO PRN (22:35)
[2019-03-11 02:25] VITALS: BP 125/83
[2019-03-11] MEDS: oxyCODONE IR 5 MG TABLET PO PRN (03:42)
[2019-03-11 04:45] LABS: BASO % 0 % (0-3); EOS % 0 % (0-3); HEMATOCRIT 24.4 % (39.0-53.0); HEMOGLOBIN 7.7 g/dL (13.0-17.5); LYMPH # 0.4 x10^3/uL (1.0-4.8); LYMPH % 3 % (24-48); MEAN CORPUSCULAR HEMOGLOBIN 28 pg (25-35); MEAN CORPUSCULAR HGB CONC 32 g/dL (31-37); MEAN CORPUSCULAR VOLUME 89 fL (79-100); MONO # 0.7 x10^3/uL (0.0-1.1); MONO % 5 % (0-9); NEUT # 13.4 x10^3uL (1.8-7.7); NEUT % 93 % (31-73); PLATELET COUNT 358 x10^3/uL (140-400); RED BLOOD COUNT 2.74 x10^6/uL (4.30-5.70); RED CELL DISTRIBUTION WIDTH 18.7 % (11.5-14.5); WHITE BLOOD COUNT 14.5 x10^3/uL (4.0-11.0)
[2019-03-11 05:00] LABS: CALCIUM 7.2 mg/dL (8.5-10.1); GFR 26.7; MAGNESIUM 2.3 mg/dL (1.8-2.4); PHOSPHORUS 4.8 mg/dL (2.6-4.7); POTASSIUM 4.8 mmol/L (3.5-5.1)
[2019-03-11] MEDS: PIPERACILLIN/TAZOBACTAM 2.25 GM in IV NORMAL SALINE 50ML 50 ML IV SCH ×4 (05:42→20:33)
[2019-03-11] MEDS: methylPREDNISolone SOD SUCC PF 125 MG/2 ML VIAL. IV SCH ×3 (05:44→20:32)
[2019-03-11 05:56] LABS: TOTAL PROTEIN 6.5 g/dL (6.4-8.2)
[2019-03-11 07:00] VITALS: BP 144/97
[2019-03-11] MEDS: BUDESONIDE 0.5 MG/2 ML NEBU. NEB SCH ×2 (07:40→19:43)
[2019-03-11] MEDS: IPRATROPIUM BROMIDE 0.5 MG/2.5 ML NEBU. NEB SCH ×4 (07:40→19:43)
--- NOTE | 2019-03-11 09:18 | PDOC ---
PROGRESS NOTES History of Present Illness History of Present Illness VTE Prophylaxis Ordered VTE Prophylaxis Devices: No VTE Pharmacological Prophylaxi: Yes Assessment/Plan Assessment/Plan Assessment/Plan Assessment/Plan acute hypoxic resp failure acute asthma exac sepsis s/p colostomy at [facility] PLANNED revision March 18 Large right-sided pleural effusion with adjacent airspace consolidation. Follow-up could be obtained to ensure this resolves. Improved right pleural effusion, no pneumothorax. 03/10 POST THORACENTESIS colitis cholelithiasis GB distention acute renal failure, ATN Multiloculated pleural effusion. Aspiration of 1 L from the right hemithorax. 03/10 referral to [facility] to follow up with his surgeon DR JOYCE following iv steroids, albuterol pcxr CONSULT IR EMPERIC IV ANTIBIOTICS BLOOD CULT SCD'S 37 MIN PT EXAM, CHART REVIEW, > 50% OF TIME SPENT WITH EXAM, CHART REVIEW, PT CARE COORDINATION Vitals Vitals Vital Signs Date Time Temp Pulse Resp B/P (MAP) Pulse Ox O2 Delivery O2 Flow Rate FiO2 03/11/19 07:41 99 Room Air 03/11/19 07:00 97.5 88 18 144/97 (113) 97.5 03/11/19 02:25 2.0 Physical Exam General: Alert, Oriented X3, Cooperative, No acute distress Heart: Regular rate, Normal S1, Normal S2 Lungs: Clear, Crackles, Other (dull on r side) Abdomen: Normal bowel sounds, Soft, No tenderness Extremities: No clubbing, No cyanosis, No edema Skin: No breakdown, No significant lesion Labs LABS Ultrasound-guided thoracentesis. HISTORY: Right pleural effusion Ultrasound demonstrated a multiloculated right pleural effusion. The largest collection was noted superiorly in the pleural space. There is atelectatic lung. The skin was prepped with ChloraPrep. Lidocaine was used for local anesthesia. Under direct ultrasound guidance a safety centesis needle was advanced into the fluid collection. The sheath was left in position. 1 L of cloudy bloody fluid was aspirated. Fluid was sent to lab for evaluation. IMPRESSION: 1. Multiloculated pleural effusion. 2. Aspiration of 1 L from the right hemithorax. Laboratory Tests Test 03/10/19 11:30 03/11/19 03:30 Body Fluid Source Pleural Body Fluid Color Red Body Fluid Clarity Turbid Body Fluid pH 7.51 Body Fluid Nucleated Cells 1749 /cmm (Not Established) Body Fluid Mononuclear WBCs (%) 11 % Body Fluid Polymorphonuclear Cells 89 % Body Fluid Total RBCs Counted 87366 /cmm (Not Body Fluid Other Cells (%) 0 % White Blood Count 14.5 x10^3/uL (4.0-11.0) Red Blood Count 2.74 x10^6/uL (4.30-5.70) Hemoglobin 7.7 g/dL (13.0-17.5) Hematocrit 24.4 % (39.0-53.0) Mean Corpuscular Volume 89 fL (79-100) Mean Corpuscular Hemoglobin 28 pg (25-35) Mean Corpuscular Hemoglobin Concent 32 g/dL (31-37) Red Cell Distribution Width 18.7 % (11.5-14.5) Platelet Count 358 x10^3/uL (140-400) Neutrophils (%) (Auto) 93 % (31-73) Lymphocytes (%) (Auto) 3 % (24-48) Monocytes (%) (Auto) 5 % (0-9) Eosinophils (%) (Auto) 0 % (0-3) Basophils (%) (Auto) 0 % (0-3) Neutrophils # (Auto) 13.4 x10^3uL (1.8-7.7) Lymphocytes # (Auto) 0.4 x10^3/uL (1.0-4.8) Monocytes # (Auto) 0.7 x10^3/uL (0.0-1.1) Eosinophils # (Auto) 0.0 x10^3/uL (0.0-0.7) Basophils # (Auto) 0.0 x10^3/uL (0.0-0.2) Sodium Level 140 mmol/L (136-145) Potassium Level 4.8 mmol/L (3.5-5.1) Chloride Level 107 mmol/L (98-107) Carbon Dioxide Level 19 mmol/L (21-32) Anion Gap 14 (6-14) Blood Urea Nitrogen 63 mg/dL (8-26) Creatinine 3.0 mg/dL (0.7-1.3) Estimated GFR (Cockcroft-Gault) 26.7 Glucose Level 167 mg/dL (70-99) Calcium Level 7.2 mg/dL (8.5-10.1) Phosphorus Level 4.8 mg/dL (2.6-4.7) Magnesium Level 2.3 mg/dL (1.8-2.4) Lactate Dehydrogenase 160 U/L (85-227) Total Protein 6.5 g/dL (6.4-8.2) Assessment and Plan Assessmemt and Plan Problems Medical Problems: (1) ARF (acute renal failure) Status: Acute (2) Cholelithiasis Status: Acute (3) Pleural effusion on right Status: Acute Comment Review of Relevant I have reviewed the following items martin (where applicable) has been applied. Labs Laboratory Tests Test 03/10/19 07:05 03/10/19 11:30 03/11/19 03:30 White Blood Count 12.2 x10^3/uL (4.0-11.0) 14.5 x10^3/uL (4.0-11.0) Red Blood Count 3.05 x10^6/uL (4.30-5.70) 2.74 x10^6/uL (4.30-5.70) Hemoglobin 8.6 g/dL (13.0-17.5) 7.7 g/dL (13.0-17.5) Hematocrit 27.2 % (39.0-53.0) 24.4 % (39.0-53.0) Mean Corpuscular Volume 89 fL (79-100) 89 fL (79-100) Mean Corpuscular Hemoglobin 28 pg (25-35) 28 pg (25-35) Mean Corpuscular Hemoglobin Concent 32 g/dL (31-37) 32 g/dL (31-37) Red Cell Distribution Width 18.0 % (11.5-14.5) 18.7 % (11.5-14.5) Platelet Count 343 x10^3/uL (140-400) 358 x10^3/uL (140-400) Neutrophils (%) (Auto) 89 % (31-73) 93 % (31-73) Lymphocytes (%) (Auto) 5 % (24-48) 3 % (24-48) Monocytes (%) (Auto) 6 % (0-9) 5 % (0-9) Eosinophils (%) (Auto) 0 % (0-3) 0 % (0-3) Basophils (%) (Auto) 0 % (0-3) 0 % (0-3) Neutrophils # (Auto) 10.9 x10^3uL (1.8-7.7) 13.4 x10^3uL (1.8-7.7) Lymphocytes # (Auto) 0.5 x10^3/uL (1.0-4.8) 0.4 x10^3/uL (1.0-4.8) Monocytes # (Auto) 0.7 x10^3/uL (0.0-1.1) 0.7 x10^3/uL (0.0-1.1) Eosinophils # (Auto) 0.0 x10^3/uL (0.0-0.7) 0.0 x10^3/uL (0.0-0.7) Basophils # (Auto) 0.0 x10^3/uL (0.0-0.2) 0.0 x10^3/uL (0.0-0.2) Sodium Level 137 mmol/L (136-145) 140 mmol/L (136-145) Potassium Level 5.2 mmol/L (3.5-5.1) 4.8 mmol/L (3.5-5.1) Chloride Level 104 mmol/L (98-107) 107 mmol/L (98-107) Carbon Dioxide Level 18 mmol/L (21-32) 19 mmol/L (21-32) Anion Gap 15 (6-14) 14 (6-14) Blood Urea Nitrogen 49 mg/dL (8-26) 63 mg/dL (8-26) Creatinine 2.9 mg/dL (0.7-1.3) 3.0 mg/dL (0.7-1.3) Estimated GFR (Cockcroft-Gault) 27.8 26.7 BUN/Creatinine Ratio 17 (6-20) Glucose Level 212 mg/dL (70-99) 167 mg/dL (70-99) Calcium Level 7.9 mg/dL (8.5-10.1) 7.2 mg/dL (8.5-10.1) Total Bilirubin 0.6 mg/dL (0.2-1.0) Aspartate Amino Transf (AST/SGOT) 31 U/L (15-37) Alanine Aminotransferase (ALT/SGPT) 46 U/L (16-63) Alkaline Phosphatase 139 U/L (46-116) Total Protein 7.0 g/dL (6.4-8.2) 6.5 g/dL (6.4-8.2) Albumin 1.9 g/dL (3.4-5.0) Albumin/Globulin Ratio 0.4 (1.0-1.7) Body Fluid Source Pleural Body Fluid Color Red Body Fluid Clarity Turbid Body Fluid pH 7.51 Body Fluid Nucleated Cells 1749 /cmm (Not Established) Body Fluid Mononuclear WBCs (%) 11 % Body Fluid Polymorphonuclear Cells 89 % Body Fluid Total RBCs Counted 80008 /cmm (Not Body Fluid Other Cells (%) 0 % Phosphorus Level 4.8 mg/dL (2.6-4.7) Magnesium Level 2.3 mg/dL (1.8-2.4) Lactate Dehydrogenase 160 U/L (85-227) Laboratory Tests Test 03/10/19 11:30 03/11/19 03:30 Body Fluid Source Pleural Body Fluid Color Red Body Fluid Clarity Turbid Body Fluid pH 7.51 Body Fluid Nucleated Cells 1749 /cmm (Not Established) Body Fluid Mononuclear WBCs (%) 11 % Body Fluid Polymorphonuclear Cells 89 % Body Fluid Total RBCs Counted 51376 /cmm (Not Body Fluid Other Cells (%) 0 % White Blood Count 14.5 x10^3/uL (4.0-11.0) Red Blood Count 2.74 x10^6/uL (4.30-5.70) Hemoglobin 7.7 g/dL (13.0-17.5) Hematocrit 24.4 % (39.0-53.0) Mean Corpuscular Volume 89 fL (79-100) Mean Corpuscular Hemoglobin 28 pg (25-35) Mean Corpuscular Hemoglobin Concent 32 g/dL (31-37) Red Cell Distribution Width 18.7 % (11.5-14.5) Platelet Count 358 x10^3/uL (140-400) Neutrophils (%) (Auto) 93 % (31-73) Lymphocytes (%) (Auto) 3 % (24-48) Monocytes (%) (Auto) 5 % (0-9) Eosinophils (%) (Auto) 0 % (0-3) Basophils (%) (Auto) 0 % (0-3) Neutrophils # (Auto) 13.4 x10^3uL (1.8-7.7) Lymphocytes # (Auto) 0.4 x10^3/uL (1.0-4.8) Monocytes # (Auto) 0.7 x10^3/uL (0.0-1.1) Eosinophils # (Auto) 0.0 x10^3/uL (0.0-0.7) Basophils # (Auto) 0.0 x10^3/uL (0.0-0.2) Sodium Level 140 mmol/L (136-145) Potassium Level 4.8 mmol/L (3.5-5.1) Chloride Level 107 mmol/L (98-107) Carbon Dioxide Level 19 mmol/L (21-32) Anion Gap 14 (6-14) Blood Urea Nitrogen 63 mg/dL (8-26) Creatinine 3.0 mg/dL (0.7-1.3) Estimated GFR (Cockcroft-Gault) 26.7 Glucose Level 167 mg/dL (70-99) Calcium Level 7.2 mg/dL (8.5-10.1) Phosphorus Level 4.8 mg/dL (2.6-4.7) Magnesium Level 2.3 mg/dL (1.8-2.4) Lactate Dehydrogenase 160 U/L (85-227) Total Protein 6.5 g/dL (6.4-8.2) Microbiology 03/09/19 Blood Culture - Preliminary, Resulted NO GROWTH AFTER 2 DAYS Medications Current Medications Sodium Chloride 1,000 ml @ 1,000 mls/hr 1X ONCE IV Last administered on at 15:30; Start 03/08/19 at 15:30; Stop 03/08/19 at 16:29; Status DC Ondansetron HCl (Zofran) 4 mg 1X ONCE IV ; Start 03/08/19 at 15:30; Stop at 15:31; Status DC Morphine Sulfate (Morphine Sulfate) 5 mg 1X ONCE IV ; Start 03/08/19 at 15:30; Stop 03/08/19 at 15:31; Status DC Sodium Chloride 1,000 ml @ 100 mls/hr Q10H IV Last administered on 03/08/19at 21:18; Start 03/08/19 at 19:04; Stop 03/09/19 at 05:25; Status DC Ondansetron HCl (Zofran) 4 mg PRN Q6HRS PRN IV NAUSEA/VOMITING, 1ST CHOICE; Start 03/08/19 at 19:15 Prochlorperazine Edisylate (Compazine) 10 mg PRN Q6HRS PRN IV NAUSEA/VOMITING, 2ND CHOICE; Start 03/08/19 at 19:15 Prochlorperazine (Compazine) 25 mg PRN Q12HR PRN TN NAUSEA/VOMITING; Start 11/14 at 19:15 Calcium Carbonate/ Glycine (Tums) 500 mg PRN Q3HRS PRN PO UPSET STOMACH; Start 03/08/19 at 19:15 Oxycodone HCl (Roxicodone) 5 mg PRN Q3HRS PRN PO BREAKTHROUGH PAIN Last administered on 03/11/19at 03:42; Start 03/08/19 at 19:15 Morphine Sulfate (Morphine Sulfate) 2 mg PRN Q2HR PRN IV PAIN Last administered on 03/09/19at 05:33; Start 03/08/19 at 19:15 Acetaminophen (Tylenol) 650 mg PRN Q6HRS PRN PO Headaches, Temp > 101.5F; Start 03/08/19 at 19:15 Piperacillin Sod/ Tazobactam Sod (Zosyn Per Pharmacy) 1 each PRN DAILY PRN MC SEE COMMENTS; Start 03/08/19 at 19:15 Hydralazine HCl (Apresoline Inj) 10 mg PRN Q4HRS PRN IVP ELEVATED BP, SEE COMMENTS; Start 03/08/19 at 19:15 Piperacillin Sod/ Tazobactam Sod 2.25 gm/Sodium Chloride 50 ml @ 100 mls/hr Q6HRS IV Last administered on 03/11/19at 05:42; Start 03/08/19 at 19:30 Ondansetron HCl (Zofran) 4 mg PRN Q8HRS PRN IV NAUSEA/VOMITING; Start 03/08/19 at 19:45; Stop 03/09/19 at 19:44; Status Cancel Morphine Sulfate (Morphine Sulfate) 4 mg PRN Q2HR PRN IV PAIN; Start 03/08/19 at 19:45; Stop 03/09/19 at 19:44; Status Cancel Sodium Chloride 1,000 ml @ 100 mls/hr 1X ONCE IV ; Start 03/08/19 at 19:45; Stop 03/09/19 at 05:44; Status Cancel Dextrose/Sodium Chloride 1,000 ml @ 75 mls/hr [id number] IV Last administered on 03/10/19at 22:35; Start 03/09/19 at 05:30 Ceftriaxone Sodium (Rocephin) 1 gm Q24H IVP ; Start 03/09/19 at 08:00; Stop at 08:01; Status DC Ipratropium [place] (Atrovent) 0.5 mg RTQID NEB Last administered on 03/11/19at 07:40; Start 03/09/19 at 08:00 Budesonide (Pulmicort) 0.5 mg RTBID NEB Last administered on 03/11/19at 07:40; Start 03/09/19 at 08:00 Pantoprazole Sodium (PROTONIX VIAL for IV PUSH) 40 mg DAILYAC IVP Last administered on 03/10/19at 08:31; Start 03/09/19 at 08:15 Methylprednisolone Sodium Succinate (SOLU-Medrol 125MG VIAL) 100 mg Q8HRS IV Last administered on 03/11/19at 05:44; Start 03/09/19 at 14:00 Lactobacillus Rhamnosus (Culturelle) 1 cap BID PO Last administered on at 22:30; Start 03/09/19 at 21:00 Active Scripts Active Reported Zinc Sulfate 220 Mg Tablet 220 Mg PO DAILY Vitamin D3 (Cholecalciferol (Vitamin D3)) 5,000 Unit Tablet 2,000 Unit PO DAILY Stelara (Ustekinumab) 90 Mg/1 Ml Disp.syrin 90 Mg SQ EVERY 8 WEEKS Tamsulosin Hcl 0.4 Mg Cap.er.24h 1 Cap PO DAILY Prednisone 20 Mg Tablet 1 Tab PO BID Polyethylene Glycol 3350 255 Gm Powder 17 Gm PO DAILY Methotrexate (Methotrexate Sodium) 25 Mg/1 Ml Vial 25 Mg IJ WEEKLY Ensure Clear (Lactose-Reduced Food) 296 Ml Liquid 296 Ml PO 5XDAY Folic Acid 1 Mg Tablet 5 Tab PO DAILY Nexium Capsule (Esomeprazole Magnesium) 20 Mg Capsule.dr 20 Mg PO BID Eliquis (Apixaban) 5 Mg Tablet 5 Mg PO BID Carvedilol (Carvedilol) 12.5 Mg Tablet 12.5 Mg PO BIDWMEALS Calcium 600 + Vit D 200 Tablet (Calcium Carbonate/Vitamin D3) 1 Each Tablet 1 Each PO BID Bumetanide 2 Mg Tablet 1 Tab PO DAILY Vitals/I & O Vital Sign - Last 24 Hours 03/10/19 03/10/19 03/10/19 03/10/19 11:00 11:48 11:55 15:00 Temp 97.3 97.3 97.3 97.3 Pulse 84 84 86 Resp 18 18 B/P (MAP) 115/81 (92) 127/81 (96) 108/70 (83) Pulse Ox 95 96 O2 Delivery Nasal Cannula Nasal Cannula Nasal Cannula O2 Flow Rate 2.0 2.0 2.0 03/10/19 03/10/19 03/10/19 03/10/19 16:46 19:52 20:00 20:19 Temp 97.4 97.4 Pulse 86 Resp 22 B/P (MAP) 126/75 (92) Pulse Ox 99 98 97 O2 Delivery Nasal Cannula Nasal Cannula Room Air Room Air O2 Flow Rate 2.0 2.0 03/10/19 03/10/19 03/10/19 03/11/19 20:20 22:35 22:54 02:25 Temp 97.6 97.5 97.6 97.5 Pulse 88 78 Resp 20 20 B/P (MAP) 132/83 (99) 125/83 (97) Pulse Ox 97 98 98 O2 Delivery Room Air Room Air Nasal Cannula Nasal Cannula O2 Flow Rate 2.0 2.0 03/11/19 03/11/19 03/11/19 03/11/19 03:42 04:42 07:00 07:41 Temp 97.5 97.5 Pulse 88 Resp 18 B/P (MAP) 144/97 (113) Pulse Ox 97 99 O2 Delivery Room Air Room Air Room Air Room Air Intake and Output 03/10/19 03/10/19 03/11/19 14:59 22:59 06:59 Intake Total 100 ml 200 ml Balance 100 ml 200 ml ROYA CAIN MD Mar 11, 2019 09:18
[2019-03-11] MEDS: PANTOPRAZOLE IV PUSH 40 MG VIAL. IVP SCH (09:27)
[2019-03-11] MEDS: LACTOBACILLUS RHAMNOSUS GG 1 CAPSULE. PO SCH ×2 (09:27→20:32)
--- NOTE | 2019-03-11 09:50 | PDOC ---
[employer] TITLES 03/11/19 0950: SURGICAL PROGRESS NOTE Subjective resting tolerating diet Vital Signs Vital Signs Date Time Temp Pulse Resp B/P (MAP) Pulse Ox O2 Delivery O2 Flow Rate FiO2 03/11/19 07:41 99 Room Air 03/11/19 07:00 97.5 88 18 144/97 (113) 97.5 03/11/19 02:25 2.0 I&O Intake and Output 03/11/19 07:00 Intake Total 300 ml Balance 300 ml Intake Oral 300 ml General: Alert, Oriented X3, Cooperative, No acute distress Abdomen: Soft, No tenderness Labs Laboratory Tests Test 03/10/19 07:05 03/10/19 11:30 03/11/19 03:30 White Blood Count 12.2 x10^3/uL (4.0-11.0) 14.5 x10^3/uL (4.0-11.0) Red Blood Count 3.05 x10^6/uL (4.30-5.70) 2.74 x10^6/uL (4.30-5.70) Hemoglobin 8.6 g/dL (13.0-17.5) 7.7 g/dL (13.0-17.5) Hematocrit 27.2 % (39.0-53.0) 24.4 % (39.0-53.0) Mean Corpuscular Volume 89 fL (79-100) 89 fL (79-100) Mean Corpuscular Hemoglobin 28 pg (25-35) 28 pg (25-35) Mean Corpuscular Hemoglobin Concent 32 g/dL (31-37) 32 g/dL (31-37) Red Cell Distribution Width 18.0 % (11.5-14.5) 18.7 % (11.5-14.5) Platelet Count 343 x10^3/uL (140-400) 358 x10^3/uL (140-400) Neutrophils (%) (Auto) 89 % (31-73) 93 % (31-73) Lymphocytes (%) (Auto) 5 % (24-48) 3 % (24-48) Monocytes (%) (Auto) 6 % (0-9) 5 % (0-9) Eosinophils (%) (Auto) 0 % (0-3) 0 % (0-3) Basophils (%) (Auto) 0 % (0-3) 0 % (0-3) Neutrophils # (Auto) 10.9 x10^3uL (1.8-7.7) 13.4 x10^3uL (1.8-7.7) Lymphocytes # (Auto) 0.5 x10^3/uL (1.0-4.8) 0.4 x10^3/uL (1.0-4.8) Monocytes # (Auto) 0.7 x10^3/uL (0.0-1.1) 0.7 x10^3/uL (0.0-1.1) Eosinophils # (Auto) 0.0 x10^3/uL (0.0-0.7) 0.0 x10^3/uL (0.0-0.7) Basophils # (Auto) 0.0 x10^3/uL (0.0-0.2) 0.0 x10^3/uL (0.0-0.2) Sodium Level 137 mmol/L (136-145) 140 mmol/L (136-145) Potassium Level 5.2 mmol/L (3.5-5.1) 4.8 mmol/L (3.5-5.1) Chloride Level 104 mmol/L (98-107) 107 mmol/L (98-107) Carbon Dioxide Level 18 mmol/L (21-32) 19 mmol/L (21-32) Anion Gap 15 (6-14) 14 (6-14) Blood Urea Nitrogen 49 mg/dL (8-26) 63 mg/dL (8-26) Creatinine 2.9 mg/dL (0.7-1.3) 3.0 mg/dL (0.7-1.3) Estimated GFR (Cockcroft-Gault) 27.8 26.7 BUN/Creatinine Ratio 17 (6-20) Glucose Level 212 mg/dL (70-99) 167 mg/dL (70-99) Calcium Level 7.9 mg/dL (8.5-10.1) 7.2 mg/dL (8.5-10.1) Total Bilirubin 0.6 mg/dL (0.2-1.0) Aspartate Amino Transf (AST/SGOT) 31 U/L (15-37) Alanine Aminotransferase (ALT/SGPT) 46 U/L (16-63) Alkaline Phosphatase 139 U/L (46-116) Total Protein 7.0 g/dL (6.4-8.2) 6.5 g/dL (6.4-8.2) Albumin 1.9 g/dL (3.4-5.0) Albumin/Globulin Ratio 0.4 (1.0-1.7) Body Fluid Source Pleural Body Fluid Color Red Body Fluid Clarity Turbid Body Fluid pH 7.51 Body Fluid Nucleated Cells 1749 /cmm (Not Established) Body Fluid Mononuclear WBCs (%) 11 % Body Fluid Polymorphonuclear Cells 89 % Body Fluid Total RBCs Counted 77347 /cmm (Not Body Fluid Other Cells (%) 0 % Phosphorus Level 4.8 mg/dL (2.6-4.7) Magnesium Level 2.3 mg/dL (1.8-2.4) Lactate Dehydrogenase 160 U/L (85-227) Laboratory Tests Test 03/10/19 11:30 03/11/19 03:30 Body Fluid Source Pleural Body Fluid Color Red Body Fluid Clarity Turbid Body Fluid pH 7.51 Body Fluid Nucleated Cells 1749 /cmm (Not Established) Body Fluid Mononuclear WBCs (%) 11 % Body Fluid Polymorphonuclear Cells 89 % Body Fluid Total RBCs Counted 54527 /cmm (Not Body Fluid Other Cells (%) 0 % White Blood Count 14.5 x10^3/uL (4.0-11.0) Red Blood Count 2.74 x10^6/uL (4.30-5.70) Hemoglobin 7.7 g/dL (13.0-17.5) Hematocrit 24.4 % (39.0-53.0) Mean Corpuscular Volume 89 fL (79-100) Mean Corpuscular Hemoglobin 28 pg (25-35) Mean Corpuscular Hemoglobin Concent 32 g/dL (31-37) Red Cell Distribution Width 18.7 % (11.5-14.5) Platelet Count 358 x10^3/uL (140-400) Neutrophils (%) (Auto) 93 % (31-73) Lymphocytes (%) (Auto) 3 % (24-48) Monocytes (%) (Auto) 5 % (0-9) Eosinophils (%) (Auto) 0 % (0-3) Basophils (%) (Auto) 0 % (0-3) Neutrophils # (Auto) 13.4 x10^3uL (1.8-7.7) Lymphocytes # (Auto) 0.4 x10^3/uL (1.0-4.8) Monocytes # (Auto) 0.7 x10^3/uL (0.0-1.1) Eosinophils # (Auto) 0.0 x10^3/uL (0.0-0.7) Basophils # (Auto) 0.0 x10^3/uL (0.0-0.2) Sodium Level 140 mmol/L (136-145) Potassium Level 4.8 mmol/L (3.5-5.1) Chloride Level 107 mmol/L (98-107) Carbon Dioxide Level 19 mmol/L (21-32) Anion Gap 14 (6-14) Blood Urea Nitrogen 63 mg/dL (8-26) Creatinine 3.0 mg/dL (0.7-1.3) Estimated GFR (Cockcroft-Gault) 26.7 Glucose Level 167 mg/dL (70-99) Calcium Level 7.2 mg/dL (8.5-10.1) Phosphorus Level 4.8 mg/dL (2.6-4.7) Magnesium Level 2.3 mg/dL (1.8-2.4) Lactate Dehydrogenase 160 U/L (85-227) Total Protein 6.5 g/dL (6.4-8.2) Problem List Problems Medical Problems: (1) ARF (acute renal failure) Status: Acute (2) Cholelithiasis Status: Acute (3) Pleural effusion on right Status: Acute Assessment/Plan no surgical plans, FU with [facility] surgeon available as needed NATHEN JOYCE MD 03/11/19 1623: SURGICAL PROGRESS NOTE Assessment/Plan pt seen asking for some more pudding no new surg recs [employer] Mar 11, 2019 09:50 NATHEN JOYCE MD Mar 11, 2019 16:23
[2019-03-11 10:49] VITALS: BP 134/80
--- NOTE | 2019-03-11 10:57 | PDOC ---
Subjective: Subjective: Tolerating PO. Breathing is better. Says ostomy output is better. Objective: Vital Signs: Vital Signs Date Time Temp Pulse Resp B/P (MAP) Pulse Ox O2 Delivery O2 Flow Rate FiO2 03/11/19 08:00 Room Air 03/11/19 07:41 99 03/11/19 07:00 97.5 88 18 144/97 (113) 97.5 03/11/19 02:25 2.0 Labs: Laboratory Tests Test 03/10/19 11:30 03/11/19 03:30 Body Fluid Source Pleural Body Fluid Color Red Body Fluid Clarity Turbid Body Fluid pH 7.51 Body Fluid Nucleated Cells 1749 /cmm Body Fluid Mononuclear WBCs (%) 11 % Body Fluid Polymorphonuclear Cells 89 % Body Fluid Total RBCs Counted 06567 /cmm Body Fluid Other Cells (%) 0 % Body Fluid Glucose 206 mg/dL Body Fluid Total Protein 4.6 g/dL Body Fluid Lactate Dehydrogenase 247 IU/L White Blood Count 14.5 x10^3/uL Red Blood Count 2.74 x10^6/uL Hemoglobin 7.7 g/dL Hematocrit 24.4 % Mean Corpuscular Volume 89 fL Mean Corpuscular Hemoglobin 28 pg Mean Corpuscular Hemoglobin Concent 32 g/dL Red Cell Distribution Width 18.7 % Platelet Count 358 x10^3/uL Neutrophils (%) (Auto) 93 % Lymphocytes (%) (Auto) 3 % Monocytes (%) (Auto) 5 % Eosinophils (%) (Auto) 0 % Basophils (%) (Auto) 0 % Neutrophils # (Auto) 13.4 x10^3uL Lymphocytes # (Auto) 0.4 x10^3/uL Monocytes # (Auto) 0.7 x10^3/uL Eosinophils # (Auto) 0.0 x10^3/uL Basophils # (Auto) 0.0 x10^3/uL Sodium Level 140 mmol/L Potassium Level 4.8 mmol/L Chloride Level 107 mmol/L Carbon Dioxide Level 19 mmol/L Anion Gap 14 Blood Urea Nitrogen 63 mg/dL Creatinine 3.0 mg/dL Estimated GFR (Cockcroft-Gault) 26.7 Glucose Level 167 mg/dL Calcium Level 7.2 mg/dL Phosphorus Level 4.8 mg/dL Magnesium Level 2.3 mg/dL Lactate Dehydrogenase 160 U/L Total Protein 6.5 g/dL BLOOD CULTURE Preliminary NO GROWTH AFTER 2 DAYS Imaging: CXR 03/10 IMPRESSION: 1. Improved right pleural effusion, no pneumothorax. CT A/P 03/08 IMPRESSION: 1. Wall thickening of the colon including adjacent to the ostomy site with adjacent edema. Can be seen with causes such as colitis and would correlate with symptoms in the region. 2. Dilated loop of colon is seen within the abdomen which could be from ileus or distal obstruction. 3. Large right-sided pleural effusion with adjacent airspace consolidation. Follow-up could be obtained to ensure this resolves. 4. Gallbladder somewhat distended at time of exam with gallstones. Low-density lesion at hepatic dome. Not well evaluated on noncontrast imaging but a common finding. If more complete characterization is desired a follow-up focused ultrasound could assess if this is solid or cystic on a nonemergent basis. PE: GEN: NAD LUNGS: right dull to percussion posteriorly HEART: RRR ABD: non-tender NEURO/PSYCH: A & O 3, not a great historian A/P: SOA, flank pain pleural effusion - s/p thoracentesis H/o Crohn's disease w/ resection/ostomy (last in 10/2018) - reports additional h /o short bowel syndrome on TPN at home, apparently not on treatment for Crohn's for a couple years (Remicade in the past), also apparently plans for revision @ [facility] later this month Cholelithiasis Leukocytosis, anemia, CKD/IVANA -- Pt seen this morning w/ Dr. Dutton - check cytology, flow cytometry, uric acid, and AFB. Will also request records from [facility] include surgery report/pathology ( Dr. Teague). DEANDRA SEAY Mar 11, 2019 10:57
[2019-03-11] MEDS: IV DEXTROSE 5 %-0.45 % NACL 1,000 ML IV SCH ×2 (11:53→20:34)
--- NOTE | 2019-03-11 13:30 | PDOC ---
PULMONARY PROGRESS NOTES Subjective sob better, has occ cough, no pain, thoracentesis done 03/10 Vitals Vital Signs Date Time Temp Pulse Resp B/P (MAP) Pulse Ox O2 Delivery O2 Flow Rate FiO2 03/11/19 11:45 97 Room Air 03/11/19 10:49 97.7 68 18 134/80 (98) 97.7 03/11/19 02:25 2.0 ROS: No Nausea, No Chest Pain General: Alert, Oriented X4 HEENT: Other (nc at perrl ) Lungs: Other (dull on r side) Cardiovascular: S1, S2 Abdomen: Soft, Non-tender Neuro Exam: Alert Extremities: No Edema Skin: Warm Labs Laboratory Tests Test 03/10/19 07:05 03/10/19 11:30 03/11/19 03:30 White Blood Count 12.2 x10^3/uL (4.0-11.0) 14.5 x10^3/uL (4.0-11.0) Red Blood Count 3.05 x10^6/uL (4.30-5.70) 2.74 x10^6/uL (4.30-5.70) Hemoglobin 8.6 g/dL (13.0-17.5) 7.7 g/dL (13.0-17.5) Hematocrit 27.2 % (39.0-53.0) 24.4 % (39.0-53.0) Mean Corpuscular Volume 89 fL (79-100) 89 fL (79-100) Mean Corpuscular Hemoglobin 28 pg (25-35) 28 pg (25-35) Mean Corpuscular Hemoglobin Concent 32 g/dL (31-37) 32 g/dL (31-37) Red Cell Distribution Width 18.0 % (11.5-14.5) 18.7 % (11.5-14.5) Platelet Count 343 x10^3/uL (140-400) 358 x10^3/uL (140-400) Neutrophils (%) (Auto) 89 % (31-73) 93 % (31-73) Lymphocytes (%) (Auto) 5 % (24-48) 3 % (24-48) Monocytes (%) (Auto) 6 % (0-9) 5 % (0-9) Eosinophils (%) (Auto) 0 % (0-3) 0 % (0-3) Basophils (%) (Auto) 0 % (0-3) 0 % (0-3) Neutrophils # (Auto) 10.9 x10^3uL (1.8-7.7) 13.4 x10^3uL (1.8-7.7) Lymphocytes # (Auto) 0.5 x10^3/uL (1.0-4.8) 0.4 x10^3/uL (1.0-4.8) Monocytes # (Auto) 0.7 x10^3/uL (0.0-1.1) 0.7 x10^3/uL (0.0-1.1) Eosinophils # (Auto) 0.0 x10^3/uL (0.0-0.7) 0.0 x10^3/uL (0.0-0.7) Basophils # (Auto) 0.0 x10^3/uL (0.0-0.2) 0.0 x10^3/uL (0.0-0.2) Sodium Level 137 mmol/L (136-145) 140 mmol/L (136-145) Potassium Level 5.2 mmol/L (3.5-5.1) 4.8 mmol/L (3.5-5.1) Chloride Level 104 mmol/L (98-107) 107 mmol/L (98-107) Carbon Dioxide Level 18 mmol/L (21-32) 19 mmol/L (21-32) Anion Gap 15 (6-14) 14 (6-14) Blood Urea Nitrogen 49 mg/dL (8-26) 63 mg/dL (8-26) Creatinine 2.9 mg/dL (0.7-1.3) 3.0 mg/dL (0.7-1.3) Estimated GFR (Cockcroft-Gault) 27.8 26.7 BUN/Creatinine Ratio 17 (6-20) Glucose Level 212 mg/dL (70-99) 167 mg/dL (70-99) Calcium Level 7.9 mg/dL (8.5-10.1) 7.2 mg/dL (8.5-10.1) Total Bilirubin 0.6 mg/dL (0.2-1.0) Aspartate Amino Transf (AST/SGOT) 31 U/L (15-37) Alanine Aminotransferase (ALT/SGPT) 46 U/L (16-63) Alkaline Phosphatase 139 U/L (46-116) Total Protein 7.0 g/dL (6.4-8.2) 6.5 g/dL (6.4-8.2) Albumin 1.9 g/dL (3.4-5.0) Albumin/Globulin Ratio 0.4 (1.0-1.7) Body Fluid Source Pleural Body Fluid Color Red Body Fluid Clarity Turbid Body Fluid pH 7.51 Body Fluid Nucleated Cells 1749 /cmm (Not Established) Body Fluid Mononuclear WBCs (%) 11 % Body Fluid Polymorphonuclear Cells 89 % Body Fluid Total RBCs Counted 31159 /cmm (Not Body Fluid Other Cells (%) 0 % Body Fluid Glucose 206 mg/dL (.) Body Fluid Total Protein 4.6 g/dL (.) Body Fluid Lactate Dehydrogenase 247 IU/L (.) Uric Acid 7.7 mg/dL (3.5-7.2) Phosphorus Level 4.8 mg/dL (2.6-4.7) Magnesium Level 2.3 mg/dL (1.8-2.4) Lactate Dehydrogenase 160 U/L (85-227) Laboratory Tests Test 03/11/19 03:30 White Blood Count 14.5 x10^3/uL (4.0-11.0) Red Blood Count 2.74 x10^6/uL (4.30-5.70) Hemoglobin 7.7 g/dL (13.0-17.5) Hematocrit 24.4 % (39.0-53.0) Mean Corpuscular Volume 89 fL (79-100) Mean Corpuscular Hemoglobin 28 pg (25-35) Mean Corpuscular Hemoglobin Concent 32 g/dL (31-37) Red Cell Distribution Width 18.7 % (11.5-14.5) Platelet Count 358 x10^3/uL (140-400) Neutrophils (%) (Auto) 93 % (31-73) Lymphocytes (%) (Auto) 3 % (24-48) Monocytes (%) (Auto) 5 % (0-9) Eosinophils (%) (Auto) 0 % (0-3) Basophils (%) (Auto) 0 % (0-3) Neutrophils # (Auto) 13.4 x10^3uL (1.8-7.7) Lymphocytes # (Auto) 0.4 x10^3/uL (1.0-4.8) Monocytes # (Auto) 0.7 x10^3/uL (0.0-1.1) Eosinophils # (Auto) 0.0 x10^3/uL (0.0-0.7) Basophils # (Auto) 0.0 x10^3/uL (0.0-0.2) Sodium Level 140 mmol/L (136-145) Potassium Level 4.8 mmol/L (3.5-5.1) Chloride Level 107 mmol/L (98-107) Carbon Dioxide Level 19 mmol/L (21-32) Anion Gap 14 (6-14) Blood Urea Nitrogen 63 mg/dL (8-26) Creatinine 3.0 mg/dL (0.7-1.3) Estimated GFR (Cockcroft-Gault) 26.7 Glucose Level 167 mg/dL (70-99) Uric Acid 7.7 mg/dL (3.5-7.2) Calcium Level 7.2 mg/dL (8.5-10.1) Phosphorus Level 4.8 mg/dL (2.6-4.7) Magnesium Level 2.3 mg/dL (1.8-2.4) Lactate Dehydrogenase 160 U/L (85-227) Total Protein 6.5 g/dL (6.4-8.2) Medications Active Scripts Medications Dose Route/Sig Max Daily Dose Days Date Category Zinc Sulfate 220 Mg Tablet 220 Mg PO DAILY 10/26/18 Reported Vitamin D3 (Cholecalciferol (Vitamin D3)) 5,000 Unit Tablet 2,000 Unit PO DAILY 10/26/18 Reported Stelara (Ustekinumab) 90 Mg/1 Ml Disp.syrin 90 Mg SQ EVERY 8 WEEKS 10/26/18 Reported Tamsulosin Hcl 0.4 Mg Cap.er.24h 1 Cap PO DAILY 10/26/18 Reported Prednisone 20 Mg Tablet 1 Tab PO BID 10/26/18 Reported Polyethylene Glycol 3350 255 Gm Powder 17 Gm PO DAILY 10/26/18 Reported Methotrexate (Methotrexate Sodium) 25 Mg/1 Ml Vial 25 Mg IJ WEEKLY 10/26/18 Reported Ensure Clear (Lactose-Reduced Food) 296 Ml Liquid 296 Ml PO 5XDAY 10/26/18 Reported Folic Acid 1 Mg Tablet 5 Tab PO DAILY 10/26/18 Reported Nexium Capsule (Esomeprazole Magnesium) 20 Mg Capsule.dr 20 Mg PO BID 10/26/18 Reported Eliquis (Apixaban) 5 Mg Tablet 5 Mg PO BID 10/26/18 Reported Carvedilol (Carvedilol) 12.5 Mg Tablet 12.5 Mg PO BIDWMEALS 10/26/18 Reported Calcium 600 + Vit D 200 Tablet (Calcium Carbonate/Vitamin D3) 1 Each Tablet 1 Each PO BID 10/26/18 Reported Bumetanide 2 Mg Tablet 1 Tab PO DAILY 10/26/18 Reported Impression . 1. Acute respiratory failure secondary to large pleural effusion, cannot rule out pneumonia, intra abdominal infection source or sepsis 2. Abnormal CT of the chest with large right pleural effusion, infiltrate, atelectasis, questionable etiology. 3. Anemia. 4. Leukocytosis. 5. Acute kidney injury. 6. Abdominal pain, questionable colitis versus ileus versus others. 7. Wheezing, acute bronchospasm. 8. History of Crohn disease, status post bowel resection and colostomy. Plan . 1. Titrate FiO2 to keep O2 saturation 92%. 2. bronchodilator, Atrovent only, he was tachycardic. 4. Repeat lactic acid normal, high procalcitonin. 5. Continue Zosyn. 6. Protonix for stress ulcer prophylaxis and SCDs for DVT prophylaxis. 7. right ultrasound-guided thoracentesis, will be done today. Pleural fluid will be sent for Gram stain and culture, pH and cytology, cell count w diff, total glucose, LDH and protein. await cultures. cxr post tap better 8. inhaled corticosteroid. 9. surgery consulted discussed w rn, pt MITZI PURCELL MD Mar 11, 2019 13:30
--- NOTE | 2019-03-11 13:37 | PDOC ---
SUBJECTIVE ROS No new complaints OBJECTIVE Vital Signs Vital Signs Date Time Temp Pulse Resp B/P (MAP) Pulse Ox O2 Delivery O2 Flow Rate FiO2 03/11/19 11:45 97 Room Air 03/11/19 10:49 97.7 68 18 134/80 (98) 97.7 03/11/19 02:25 2.0 I & 0 Intake and Output 03/11/19 06:59 Intake Total 300 ml Balance 300 ml Intake Oral 300 ml PHYSICAL EXAM Physical Exam General Appearance: no apparent distress Respiratory: decreased breath sounds Heart: S1S2 Abdomen: soft, bowel sounds present Genitourinary: No boggs Extremities: pulses present Neurology: alert, oriented DIAGNOSIS/ASSESSMENT Assessment & Plan IVANA on CKD - Creatinine up from baseline Likely sec to Dehydration On IVF, Strict I/O Continue to hold Bumex , Avoid Nephrotoxins CKD stage 3/4- On Review of [facility] records Baseline Cr < 2 and up to 2.[address] Arnold at , and not sure about his baseline renal function Thinks his fu appt with him scheduled this or next month Metabolic acidosis- Pleural Effusion- RT S/P Thoracentesis, Pulm following Cholelithiasis H/o Crohn's disease s/p resection/ostomy plans for revision @ on 03/18 COMMENT/RELEVANT DATA Meds Current Medications Medications (Trade) Dose Ordered Sig/Vazquez Start Time Stop Time Status Last Admin Dose Admin Acetaminophen (Tylenol) 650 mg PRN Q6HRS PRN 03/08/19 19:15 Budesonide (Pulmicort) 0.5 mg RTBID 03/09/19 08:00 03/11/19 07:40 0.5 MG Calcium Carbonate/ Glycine (Tums) 500 mg PRN Q3HRS PRN 03/08/19 19:15 Ceftriaxone Sodium (Rocephin) 1 gm Q24H 03/09/19 08:00 03/09/19 08:01 DC Dextrose/Sodium Chloride 1,000 ml @ 75 mls/hr [id number] 03/09/19 05:30 03/11/19 11:53 75 MLS/HR Hydralazine HCl (Apresoline Inj) 10 mg PRN Q4HRS PRN 03/08/19 19:15 Ipratropium [place] (Atrovent) 0.5 mg RTQID 03/09/19 08:00 03/11/19 11:43 0.5 MG Lactobacillus Rhamnosus (Culturelle) 1 cap BID 03/09/19 21:00 03/11/19 09:27 1 CAP Methylprednisolone Sodium Succinate (SOLU-Medrol 125MG VIAL) 100 mg Q8HRS 03/09/19 14:00 03/11/19 05:44 100 MG Morphine Sulfate (Morphine Sulfate) 4 mg PRN Q2HR PRN 03/08/19 19:45 03/09/19 19:44 Cancel Ondansetron HCl (Zofran) 4 mg PRN Q8HRS PRN 03/08/19 19:45 03/09/19 19:44 Cancel Oxycodone HCl (Roxicodone) 5 mg PRN Q3HRS PRN 03/08/19 19:15 03/11/19 03:42 5 MG Pantoprazole Sodium (PROTONIX VIAL for IV PUSH) 40 mg DAILYAC 03/09/19 08:15 03/11/19 09:27 40 MG Piperacillin Sod/ Tazobactam Sod (Zosyn Per Pharmacy) 1 each PRN DAILY PRN 03/08/19 19:15 Piperacillin Sod/ Tazobactam Sod 2.25 gm/Sodium Chloride 50 ml @ 100 mls/hr Q6HRS 03/08/19 19:30 03/11/19 11:53 100 MLS/HR Prochlorperazine (Compazine) 25 mg PRN Q12HR PRN 03/08/19 19:15 Prochlorperazine Edisylate (Compazine) 10 mg PRN Q6HRS PRN 03/08/19 19:15 Sodium Chloride 1,000 ml @ 100 mls/hr 1X ONCE 03/08/19 19:45 03/09/19 05:44 Cancel Lab Laboratory Tests Test 03/11/19 03:30 White Blood Count 14.5 x10^3/uL (4.0-11.0) Red Blood Count 2.74 x10^6/uL (4.30-5.70) Hemoglobin 7.7 g/dL (13.0-17.5) Hematocrit 24.4 % (39.0-53.0) Mean Corpuscular Volume 89 fL (79-100) Mean Corpuscular Hemoglobin 28 pg (25-35) Mean Corpuscular Hemoglobin Concent 32 g/dL (31-37) Red Cell Distribution Width 18.7 % (11.5-14.5) Platelet Count 358 x10^3/uL (140-400) Neutrophils (%) (Auto) 93 % (31-73) Lymphocytes (%) (Auto) 3 % (24-48) Monocytes (%) (Auto) 5 % (0-9) Eosinophils (%) (Auto) 0 % (0-3) Basophils (%) (Auto) 0 % (0-3) Neutrophils # (Auto) 13.4 x10^3uL (1.8-7.7) Lymphocytes # (Auto) 0.4 x10^3/uL (1.0-4.8) Monocytes # (Auto) 0.7 x10^3/uL (0.0-1.1) Eosinophils # (Auto) 0.0 x10^3/uL (0.0-0.7) Basophils # (Auto) 0.0 x10^3/uL (0.0-0.2) Sodium Level 140 mmol/L (136-145) Potassium Level 4.8 mmol/L (3.5-5.1) Chloride Level 107 mmol/L (98-107) Carbon Dioxide Level 19 mmol/L (21-32) Anion Gap 14 (6-14) Blood Urea Nitrogen 63 mg/dL (8-26) Creatinine 3.0 mg/dL (0.7-1.3) Estimated GFR (Cockcroft-Gault) 26.7 Glucose Level 167 mg/dL (70-99) Uric Acid 7.7 mg/dL (3.5-7.2) Calcium Level 7.2 mg/dL (8.5-10.1) Phosphorus Level 4.8 mg/dL (2.6-4.7) Magnesium Level 2.3 mg/dL (1.8-2.4) Lactate Dehydrogenase 160 U/L (85-227) Total Protein 6.5 g/dL (6.4-8.2) Results All relevant outside records, renal labs, imaging studies, telemetry/EKG's were reviewed. AISHA GIBBS MD Mar 11, 2019 13:37
--- NOTE | 2019-03-11 13:45 | PDOC ---
Infectious Disease Note Subjective: Subjective Pt seen and examined Vital Signs: Vital Signs Vital Signs Date Time Temp Pulse Resp B/P (MAP) Pulse Ox O2 Delivery O2 Flow Rate FiO2 03/11/19 11:45 97 Room Air 03/11/19 10:49 97.7 68 18 134/80 (98) 97.7 03/11/19 02:25 2.0 Medications: Inpatient Meds: Current Medications Medications (Trade) Dose Ordered Sig/Vazquez Start Time Stop Time Status Last Admin Dose Admin Acetaminophen (Tylenol) 650 mg PRN Q6HRS PRN 03/08/19 19:15 Budesonide (Pulmicort) 0.5 mg RTBID 03/09/19 08:00 03/11/19 07:40 0.5 MG Calcium Carbonate/ Glycine (Tums) 500 mg PRN Q3HRS PRN 03/08/19 19:15 Ceftriaxone Sodium (Rocephin) 1 gm Q24H 03/09/19 08:00 03/09/19 08:01 DC Dextrose/Sodium Chloride 1,000 ml @ 75 mls/hr [id number] 03/09/19 05:30 03/11/19 11:53 75 MLS/HR Hydralazine HCl (Apresoline Inj) 10 mg PRN Q4HRS PRN 03/08/19 19:15 Ipratropium [place] (Atrovent) 0.5 mg RTQID 03/09/19 08:00 03/11/19 11:43 0.5 MG Lactobacillus Rhamnosus (Culturelle) 1 cap BID 03/09/19 21:00 03/11/19 09:27 1 CAP Methylprednisolone Sodium Succinate (SOLU-Medrol 125MG VIAL) 100 mg Q8HRS 03/09/19 14:00 03/11/19 05:44 100 MG Morphine Sulfate (Morphine Sulfate) 4 mg PRN Q2HR PRN 03/08/19 19:45 03/09/19 19:44 Cancel Ondansetron HCl (Zofran) 4 mg PRN Q8HRS PRN 03/08/19 19:45 03/09/19 19:44 Cancel Oxycodone HCl (Roxicodone) 5 mg PRN Q3HRS PRN 03/08/19 19:15 03/11/19 03:42 5 MG Pantoprazole Sodium (PROTONIX VIAL for IV PUSH) 40 mg DAILYAC 03/09/19 08:15 03/11/19 09:27 40 MG Piperacillin Sod/ Tazobactam Sod (Zosyn Per Pharmacy) 1 each PRN DAILY PRN 03/08/19 19:15 Piperacillin Sod/ Tazobactam Sod 2.25 gm/Sodium Chloride 50 ml @ 100 mls/hr Q6HRS 03/08/19 19:30 03/11/19 11:53 100 MLS/HR Prochlorperazine (Compazine) 25 mg PRN Q12HR PRN 03/08/19 19:15 Prochlorperazine Edisylate (Compazine) 10 mg PRN Q6HRS PRN 03/08/19 19:15 Sodium Chloride 1,000 ml @ 100 mls/hr 1X ONCE 03/08/19 19:45 03/09/19 05:44 Cancel Labs: Lab Laboratory Tests Test 03/11/19 03:30 White Blood Count 14.5 x10^3/uL (4.0-11.0) Red Blood Count 2.74 x10^6/uL (4.30-5.70) Hemoglobin 7.7 g/dL (13.0-17.5) Hematocrit 24.4 % (39.0-53.0) Mean Corpuscular Volume 89 fL (79-100) Mean Corpuscular Hemoglobin 28 pg (25-35) Mean Corpuscular Hemoglobin Concent 32 g/dL (31-37) Red Cell Distribution Width 18.7 % (11.5-14.5) Platelet Count 358 x10^3/uL (140-400) Neutrophils (%) (Auto) 93 % (31-73) Lymphocytes (%) (Auto) 3 % (24-48) Monocytes (%) (Auto) 5 % (0-9) Eosinophils (%) (Auto) 0 % (0-3) Basophils (%) (Auto) 0 % (0-3) Neutrophils # (Auto) 13.4 x10^3uL (1.8-7.7) Lymphocytes # (Auto) 0.4 x10^3/uL (1.0-4.8) Monocytes # (Auto) 0.7 x10^3/uL (0.0-1.1) Eosinophils # (Auto) 0.0 x10^3/uL (0.0-0.7) Basophils # (Auto) 0.0 x10^3/uL (0.0-0.2) Sodium Level 140 mmol/L (136-145) Potassium Level 4.8 mmol/L (3.5-5.1) Chloride Level 107 mmol/L (98-107) Carbon Dioxide Level 19 mmol/L (21-32) Anion Gap 14 (6-14) Blood Urea Nitrogen 63 mg/dL (8-26) Creatinine 3.0 mg/dL (0.7-1.3) Estimated GFR (Cockcroft-Gault) 26.7 Glucose Level 167 mg/dL (70-99) Uric Acid 7.7 mg/dL (3.5-7.2) Calcium Level 7.2 mg/dL (8.5-10.1) Phosphorus Level 4.8 mg/dL (2.6-4.7) Magnesium Level 2.3 mg/dL (1.8-2.4) Lactate Dehydrogenase 160 U/L (85-227) Total Protein 6.5 g/dL (6.4-8.2) Objective: Assessment: IMP: Abdominal pain Cholelithiasis Rt Pleural effusion s/p thoracentesis S/P colostomy Leucocytosis IVANA Plan: Plan of Care Cont zosyn add zyvox f/u BC and pleural fluid c/s F/U Cytology Thank you [phone] DEN HOWARD MD Mar 11, 2019 13:45
[2019-03-11] MEDS: LINEZOLID 600 MG TABLET PO SCH ×2 (14:01→20:32)
[2019-03-11 15:02] VITALS: BP 141/82
--- NOTE | 2019-03-11 15:38 | NUR ---
SW following pt for anticipated dc needs. Chart reviewed and ANGEL RN. Pt lives at home with family. SW confirmed pt has home TPN through [facility]: [phone], fax; [phone] and HH through [facility] . SHAVONNE requested for PT/OT order as pt has not ambulated since admission. Will continue to follow.
[2019-03-11 18:53] VITALS: BP 148/80
--- NOTE | 2019-03-11 20:29 | CONS ---
DATE OF CONSULTATION: 03/11/2019 REFERRING PHYSICIAN: Dr. Schneider. REASON FOR CONSULTATION: Sepsis. HISTORY OF PRESENT ILLNESS: A 54-year-old male with history of Crohn's and colostomy, who presented to the ER with complaints of abdominal pain, mainly in the right upper quadrant radiating to the right flank two days prior to admission. He denied any fevers, chills, nausea, vomiting or worsening drainage from his colostomy. He states that his colostomy stoma was deformed since October when he had his surgery and was supposed to have surgery to reconstruct it on 03/18/2019 at [facility]. He denied any chest pain, shortness of breath, fevers or being on antibiotics recently. The patient had a PICC line in place, powered right chest wall for 3 months as he is on TPN at home. The patient had a surgery done for what sounds like obstruction in 11/01/2018 [facility] at which time he had lost about 50 pounds weight down to 110, currently he is back up to 150 pounds. He denies any trouble with swallowing, headache, sores in the mouth, symptoms, rash, sick contact. The patient underwent CT of the chest and abdomen, which showed wall thickening of the colon including adjacent to the ostomy bag with adjacent edema, can be seen with colitis. Dilated loop of colon is seen in the abdomen, which could be from ileus or distal obstruction. Large right-sided pleural effusion with adjacent airspace consolidation. Gallbladder was somewhat distended at the time with gallstones. General Surgery was consulted. The patient is not a candidate for surgery at this time. Pulmonary was consulted. The patient underwent a right-sided ultrasound-guided thoracocentesis, which revealed pleural fluid, which was red in color, turbid in clarity, pH of 7.51, nucleated cells of 1749, monocytes 11%, 89% poly, 77167 rbc's, glucose of 206, total protein of 4.6, LDH of 247. Serum LDH was 160, albumin in serum was 1.9. The patient underwent blood cultures 03/09/2019, which are negative so far. He was started on empiric Zosyn. ID consult has been requested for antibiotic management. Today, the patient states his shortness of breath is better. He has some occasional cough, not bringing up any phlegm. No pain. Denies any nausea, vomiting, diarrhea, abdominal pain, chest pain. PAST MEDICAL HISTORY: History of Crohn's, has been on Remicade a couple of years ago, now off, was not able to give me details. He is on Stelara, prednisone, also had been on methotrexate in the past. Denies any history suggestive of latent TB or active TB, history of bowel resection 10 years ago. History of colostomy 11/01/2018 followed by another surgery 11/21/2018 at [facility], awaiting surgery to reconstruct the stoma, which is deformed on 03/18/2019 at [facility], on TPN, history of weight loss, now gaining back. ALLERGIES: No known drug allergies. SOCIAL HISTORY: Denies smoking, ETOH or illicit drug use. Lives with his mother no pets, on disability FAMILY HISTORY: Adopted CURRENT MEDICATIONS: Zosyn. Other medications reviewed in medication list. REVIEW OF SYSTEMS: GENERAL: Denies any chest pain, back pain, abdominal pain, fevers, chills, some shortness of breath. Cough is improving. HEENT: Negative. CARDIAC: Negative. GASTROINTESTINAL: As above. GENITOURINARY: Negative. NEUROLOGIC: Negative. MUSCULOSKELETAL: Negative. PHYSICAL EXAMINATION: VITAL SIGNS: Temperature 97.7, pulse 68, respiration 18, blood pressure 134/80, oxygen saturation 98% on room air. GENERAL: Alert and oriented x 3 male in no acute distress, lying comfortably in bed, eating lunch. HEENT: Anicteric. Pupils equal, reactive. Extraocular movements intact. Edentulous. No thrush. Oral mucosa moist. No oropharyngeal exudate. NECK: Supple. No JVD. LUNGS: Decreased breath sounds on the right side. No wheezing. CARDIOVASCULAR: S1, S2 with no gallops or murmurs. ABDOMEN: Mildly distended, soft, mild diffuse tenderness present mainly in the right upper and lower quadrants. Bowel sounds present. No rebound, no guarding. EXTREMITIES: No edema, no cyanosis. DERMATOLOGIC: Warm, dry. No generalized rash. LINES: Right-sided chest wall PowerPICC looks okay. CENTRAL NERVOUS SYSTEM: Alert and oriented x 3. Grossly nonfocal. PSYCHIATRIC: Cooperative, appropriate mood and affect. LABORATORY DATA: WBC 14.5, hemoglobin 7.7, hematocrit 24.4, platelets 356, neutrophil 93%. Sodium 140, potassium 4.8, chloride 107, bicarbonate 19, BUN 63, creatinine 3.0, glucose 167, uric acid 7.7. Lactate 0.7, procalcitonin 1.67, phosphorus 4.8, magnesium 2.3, LDH 160. LFTs within normal limits. Albumin 1.9. Pleural fluid red in color, clarity turbid, pH 7.51, nucleated 1749, mono 11, PMN 89, total rbc 53460, glucose 206, total protein 4.6, LDH 247. MICRO: Blood culture pending at this time. Pleural fluid cultures pending at this time including AFB. IMAGING: Abdomen and pelvis CT shows wall thickening of the colon including adjacent to the ostomy site with adjacent edema can be seen with causes such as colitis and would correlate with symptoms in the region dilated loop of colon is seen within the abdomen, which could be from the ileus or distal obstruction, large right-sided pleural effusion with adjacent airspace consolidation, followup can be obtained to ensure these results. Gallbladder is somewhat distended at the time of exam with gallstones, low density lesion at hepatic dome not well evaluated on noncontrast imaging, but a common finding if more complete characterization is desired, a followup focused ultrasound could assess if this is solid or cystic on nonemergent basis. Chest x-ray shows improved right pleural effusion, no pneumothorax. IMPRESSION: 1. Leukocytosis.Etiology multifactorial,improving 2. Right large pleural effusion, status post thoracocentesis with infiltrate, atelectasis, questionable etiology. Cytology is pending at this time. Gram-stain and cultures are negative so far. 3. Anemia. 4. Acute kidney injury. 5. Abdominal pain, questionable colitis versus ileus versus others. 6. History of Crohn's disease, status post bowel resection and colostomy, awaiting for surgery at on 03/18/2019 for correction of stoma deformity. Treated with remicaide and now on stelera . NO h/o TB 7. History of weight loss, now resolving with TPN prior to admission. 8. Cholelithiasis without clinical evidence of cholangitis or cholecystitis. 9. Protein-calorie malnutrition. 10. 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 RECOMMENDATIONS: 1. Continue empiric Zosyn. 2. We will add empiric Zyvox. 3. Follow up pleural fluid cultures and blood cultures. 4. Follow up pleural fluid cytology. 5. Continue supportive care. Thank you, Dr. Schneider for consulting Infectious Disease to participate in this patient's care. If you have any questions, do not hesitate to contact me. DEN HOWARD MD DR: JS/vika JOB#: [id number] / [id number] ROBERT
[2019-03-11 23:00] VITALS: BP 141/88
[2019-03-12 03:00] VITALS: BP 146/91
[2019-03-12 04:29] LABS: ALBUMIN 1.9 g/dL (3.4-5.0); ALBUMIN/GLOBULIN RATIO 0.4 (1.0-1.7); CREATININE 2.6 mg/dL (0.7-1.3); GFR 31.5; POTASSIUM 4.4 mmol/L (3.5-5.1); TOTAL BILIRUBIN 0.2 mg/dL (0.2-1.0); TOTAL PROTEIN 6.9 g/dL (6.4-8.2)
[2019-03-12 04:30] LABS: BASO % 0 % (0-3); EOS % 0 % (0-3); HEMATOCRIT 24.4 % (39.0-53.0); HEMOGLOBIN 7.7 g/dL (13.0-17.5); LYMPH # 0.3 x10^3/uL (1.0-4.8); LYMPH % 3 % (24-48); MEAN CORPUSCULAR HEMOGLOBIN 28 pg (25-35); MEAN CORPUSCULAR HGB CONC 32 g/dL (31-37); MEAN CORPUSCULAR VOLUME 90 fL (79-100); MONO # 0.3 x10^3/uL (0.0-1.1); MONO % 3 % (0-9); NEUT # 9.6 x10^3uL (1.8-7.7); NEUT % 94 % (31-73); PLATELET COUNT 374 x10^3/uL (140-400); RED BLOOD COUNT 2.72 x10^6/uL (4.30-5.70); RED CELL DISTRIBUTION WIDTH 18.8 % (11.5-14.5); WHITE BLOOD COUNT 10.1 x10^3/uL (4.0-11.0)
[2019-03-12] MEDS: PIPERACILLIN/TAZOBACTAM 2.25 GM in IV NORMAL SALINE 50ML 50 ML IV SCH ×3 (05:28→17:55)
[2019-03-12] MEDS: methylPREDNISolone SOD SUCC PF 125 MG/2 ML VIAL. IV SCH ×3 (05:28→20:59)
[2019-03-12 07:00] VITALS: BP 141/87
[2019-03-12] MEDS: IPRATROPIUM BROMIDE 0.5 MG/2.5 ML NEBU. NEB SCH ×4 (07:11→19:18)
[2019-03-12] MEDS: BUDESONIDE 0.5 MG/2 ML NEBU. NEB SCH ×2 (07:12→19:18)
[2019-03-12] MEDS: PANTOPRAZOLE IV PUSH 40 MG VIAL. IVP SCH (09:53)
[2019-03-12] MEDS: LINEZOLID 600 MG TABLET PO SCH ×2 (09:53→20:59)
[2019-03-12] MEDS: LACTOBACILLUS RHAMNOSUS GG 1 CAPSULE. PO SCH ×2 (09:53→21:00)
--- NOTE | 2019-03-12 09:55 | PDOC ---
SUBJECTIVE ROS No new complaints OBJECTIVE Vital Signs Vital Signs Date Time Temp Pulse Resp B/P (MAP) Pulse Ox O2 Delivery O2 Flow Rate FiO2 03/12/19 07:12 98 Room Air 03/12/19 07:00 98.4 49 20 141/87 (105) 98.4 I & 0 Intake and Output 03/12/19 06:59 Intake Total 1500 ml Output Total 1950 ml Balance -450 ml Intake Oral 1500 ml Output Urine Total 1000 ml Stool Total 950 ml PHYSICAL EXAM Physical Exam General Appearance: no apparent distress Respiratory: decreased breath sounds Heart: S1S2 Abdomen: soft, bowel sounds present Genitourinary: No boggs Extremities: pulses present Neurology: alert, oriented DIAGNOSIS/ASSESSMENT Assessment & Plan IVANA on CKD - Improving Likely sec to Dehydration On IVF, Strict I/O Continue to hold Bumex , Avoid Nephrotoxins CKD stage 3/4- On Review of [facility] records Baseline Cr < 2 and up to 2.[address] Arnold at , and not sure about his baseline renal function He thinks his fu appt with him scheduled this or next month Metabolic acidosis- Stable , Monitor Pleural Effusion- RT S/P Thoracentesis, Pulm following Cholelithiasis H/o Crohn's disease s/p resection/ostomy plans for revision @ on 03/18 COMMENT/RELEVANT DATA Meds Current Medications Medications (Trade) Dose Ordered Sig/Vazquez Start Time Stop Time Status Last Admin Dose Admin Acetaminophen (Tylenol) 650 mg PRN Q6HRS PRN 03/08/19 19:15 Budesonide (Pulmicort) 0.5 mg RTBID 03/09/19 08:00 03/12/19 07:12 0.5 MG Calcium Carbonate/ Glycine (Tums) 500 mg PRN Q3HRS PRN 03/08/19 19:15 Ceftriaxone Sodium (Rocephin) 1 gm Q24H 03/09/19 08:00 03/09/19 08:01 DC Dextrose/Sodium Chloride 1,000 ml @ 75 mls/hr [id number] 03/09/19 05:30 03/11/19 20:34 75 MLS/HR Hydralazine HCl (Apresoline Inj) 10 mg PRN Q4HRS PRN 03/08/19 19:15 Ipratropium [place] (Atrovent) 0.5 mg RTQID 03/09/19 08:00 03/12/19 07:11 0.5 MG Lactobacillus Rhamnosus (Culturelle) 1 cap BID 03/09/19 21:00 03/11/19 20:32 1 CAP Linezolid (Zyvox) 600 mg BID 03/11/19 14:30 03/11/19 20:32 600 MG Methylprednisolone Sodium Succinate (SOLU-Medrol 125MG VIAL) 100 mg Q8HRS 03/09/19 14:00 03/12/19 05:28 100 MG Morphine Sulfate (Morphine Sulfate) 4 mg PRN Q2HR PRN 03/08/19 19:45 03/09/19 19:44 Cancel Ondansetron HCl (Zofran) 4 mg PRN Q8HRS PRN 03/08/19 19:45 03/09/19 19:44 Cancel Oxycodone HCl (Roxicodone) 5 mg PRN Q3HRS PRN 03/08/19 19:15 03/11/19 03:42 5 MG Pantoprazole Sodium (PROTONIX VIAL for IV PUSH) 40 mg DAILYAC 03/09/19 08:15 03/11/19 09:27 40 MG Piperacillin Sod/ Tazobactam Sod (Zosyn Per Pharmacy) 1 each PRN DAILY PRN 03/08/19 19:15 Piperacillin Sod/ Tazobactam Sod 2.25 gm/Sodium Chloride 50 ml @ 100 mls/hr Q6HRS 03/08/19 19:30 03/12/19 05:28 100 MLS/HR Prochlorperazine (Compazine) 25 mg PRN Q12HR PRN 03/08/19 19:15 Prochlorperazine Edisylate (Compazine) 10 mg PRN Q6HRS PRN 03/08/19 19:15 Sodium Chloride 1,000 ml @ 100 mls/hr 1X ONCE 03/08/19 19:45 03/09/19 05:44 Cancel Lab Laboratory Tests Test 03/12/19 03:29 White Blood Count 10.1 x10^3/uL (4.0-11.0) Red Blood Count 2.72 x10^6/uL (4.30-5.70) Hemoglobin 7.7 g/dL (13.0-17.5) Hematocrit 24.4 % (39.0-53.0) Mean Corpuscular Volume 90 fL (79-100) Mean Corpuscular Hemoglobin 28 pg (25-35) Mean Corpuscular Hemoglobin Concent 32 g/dL (31-37) Red Cell Distribution Width 18.8 % (11.5-14.5) Platelet Count 374 x10^3/uL (140-400) Neutrophils (%) (Auto) 94 % (31-73) Lymphocytes (%) (Auto) 3 % (24-48) Monocytes (%) (Auto) 3 % (0-9) Eosinophils (%) (Auto) 0 % (0-3) Basophils (%) (Auto) 0 % (0-3) Neutrophils # (Auto) 9.6 x10^3uL (1.8-7.7) Lymphocytes # (Auto) 0.3 x10^3/uL (1.0-4.8) Monocytes # (Auto) 0.3 x10^3/uL (0.0-1.1) Eosinophils # (Auto) 0.0 x10^3/uL (0.0-0.7) Basophils # (Auto) 0.0 x10^3/uL (0.0-0.2) Sodium Level 143 mmol/L (136-145) Potassium Level 4.4 mmol/L (3.5-5.1) Chloride Level 109 mmol/L (98-107) Carbon Dioxide Level 19 mmol/L (21-32) Anion Gap 15 (6-14) Blood Urea Nitrogen 52 mg/dL (8-26) Creatinine 2.6 mg/dL (0.7-1.3) Estimated GFR (Cockcroft-Gault) 31.5 BUN/Creatinine Ratio 20 (6-20) Glucose Level 178 mg/dL (70-99) Calcium Level 7.0 mg/dL (8.5-10.1) Total Bilirubin 0.2 mg/dL (0.2-1.0) Aspartate Amino Transf (AST/SGOT) 16 U/L (15-37) Alanine Aminotransferase (ALT/SGPT) 40 U/L (16-63) Alkaline Phosphatase 148 U/L (46-116) Total Protein 6.9 g/dL (6.4-8.2) Albumin 1.9 g/dL (3.4-5.0) Albumin/Globulin Ratio 0.4 (1.0-1.7) Results All relevant outside records, renal labs, imaging studies, telemetry/EKG's were reviewed. AISHA GIBBS MD Mar 12, 2019 09:54
[2019-03-12 10:42] VITALS: BP 156/79
--- NOTE | 2019-03-12 10:47 | PDOC ---
PROGRESS NOTES History of Present Illness History of Present Illness VTE Prophylaxis Ordered VTE Prophylaxis Devices: No VTE Pharmacological Prophylaxi: Yes Assessment/Plan Assessment/Plan Assessment/Plan Assessment/Plan acute hypoxic resp failure acute asthma exac sepsis s/p colostomy at [facility] PLANNED revision March 18 Large right-sided pleural effusion with adjacent airspace consolidation. Follow-up could be obtained to ensure this resolves. Improved right pleural effusion, no pneumothorax. 03/10 POST THORACENTESIS colitis cholelithiasis GB distention acute renal failure, ATN Multiloculated pleural effusion. Aspiration of 1 L from the right hemithorax. 03/10 referral to [facility] to follow up with his surgeon DR JOYCE following iv steroids, albuterol pcxr CONSULT IR EMPERIC IV ANTIBIOTICS, ZOSYN, ZYVOX BLOOD CULT SCD'S SWALLOW SCREEN 34 MIN PT EXAM, CHART REVIEW, > 50% OF TIME SPENT WITH EXAM, CHART REVIEW, PT CARE COORDINATION Vitals Vitals Vital Signs Date Time Temp Pulse Resp B/P (MAP) Pulse Ox O2 Delivery O2 Flow Rate FiO2 03/12/19 10:42 98.0 58 18 156/79 (104) 98 Room Air 98.0 Physical Exam General: Alert, Oriented X3, Cooperative, No acute distress Heart: Regular rate, Normal S1, Normal S2 Lungs: Clear, Other (dull on r side) Abdomen: Soft, No tenderness Extremities: No clubbing, No cyanosis, No edema Skin: No breakdown, No significant lesion Labs LABS Laboratory Tests Test 03/12/19 03:29 White Blood Count 10.1 x10^3/uL (4.0-11.0) Red Blood Count 2.72 x10^6/uL (4.30-5.70) Hemoglobin 7.7 g/dL (13.0-17.5) Hematocrit 24.4 % (39.0-53.0) Mean Corpuscular Volume 90 fL (79-100) Mean Corpuscular Hemoglobin 28 pg (25-35) Mean Corpuscular Hemoglobin Concent 32 g/dL (31-37) Red Cell Distribution Width 18.8 % (11.5-14.5) Platelet Count 374 x10^3/uL (140-400) Neutrophils (%) (Auto) 94 % (31-73) Lymphocytes (%) (Auto) 3 % (24-48) Monocytes (%) (Auto) 3 % (0-9) Eosinophils (%) (Auto) 0 % (0-3) Basophils (%) (Auto) 0 % (0-3) Neutrophils # (Auto) 9.6 x10^3uL (1.8-7.7) Lymphocytes # (Auto) 0.3 x10^3/uL (1.0-4.8) Monocytes # (Auto) 0.3 x10^3/uL (0.0-1.1) Eosinophils # (Auto) 0.0 x10^3/uL (0.0-0.7) Basophils # (Auto) 0.0 x10^3/uL (0.0-0.2) Sodium Level 143 mmol/L (136-145) Potassium Level 4.4 mmol/L (3.5-5.1) Chloride Level 109 mmol/L (98-107) Carbon Dioxide Level 19 mmol/L (21-32) Anion Gap 15 (6-14) Blood Urea Nitrogen 52 mg/dL (8-26) Creatinine 2.6 mg/dL (0.7-1.3) Estimated GFR (Cockcroft-Gault) 31.5 BUN/Creatinine Ratio 20 (6-20) Glucose Level 178 mg/dL (70-99) Calcium Level 7.0 mg/dL (8.5-10.1) Total Bilirubin 0.2 mg/dL (0.2-1.0) Aspartate Amino Transf (AST/SGOT) 16 U/L (15-37) Alanine Aminotransferase (ALT/SGPT) 40 U/L (16-63) Alkaline Phosphatase 148 U/L (46-116) Total Protein 6.9 g/dL (6.4-8.2) Albumin 1.9 g/dL (3.4-5.0) Albumin/Globulin Ratio 0.4 (1.0-1.7) Assessment and Plan Assessmemt and Plan Problems Medical Problems: (1) ARF (acute renal failure) Status: Acute (2) Cholelithiasis Status: Acute (3) Pleural effusion on right Status: Acute Comment Review of Relevant I have reviewed the following items martin (where applicable) has been applied. Labs Laboratory Tests Test 03/10/19 11:30 03/11/19 03:30 03/12/19 03:29 Body Fluid Source Pleural Body Fluid Color Red Body Fluid Clarity Turbid Body Fluid pH 7.51 Body Fluid Nucleated Cells 1749 /cmm (Not Established) Body Fluid Mononuclear WBCs (%) 11 % Body Fluid Polymorphonuclear Cells 89 % Body Fluid Total RBCs Counted 95751 /cmm (Not Body Fluid Other Cells (%) 0 % Body Fluid Glucose 206 mg/dL (.) Body Fluid Total Protein 4.6 g/dL (.) Body Fluid Lactate Dehydrogenase 247 IU/L (.) White Blood Count 14.5 x10^3/uL (4.0-11.0) 10.1 x10^3/uL (4.0-11.0) Red Blood Count 2.74 x10^6/uL (4.30-5.70) 2.72 x10^6/uL (4.30-5.70) Hemoglobin 7.7 g/dL (13.0-17.5) 7.7 g/dL (13.0-17.5) Hematocrit 24.4 % (39.0-53.0) 24.4 % (39.0-53.0) Mean Corpuscular Volume 89 fL (79-100) 90 fL (79-100) Mean Corpuscular Hemoglobin 28 pg (25-35) 28 pg (25-35) Mean Corpuscular Hemoglobin Concent 32 g/dL (31-37) 32 g/dL (31-37) Red Cell Distribution Width 18.7 % (11.5-14.5) 18.8 % (11.5-14.5) Platelet Count 358 x10^3/uL (140-400) 374 x10^3/uL (140-400) Neutrophils (%) (Auto) 93 % (31-73) 94 % (31-73) Lymphocytes (%) (Auto) 3 % (24-48) 3 % (24-48) Monocytes (%) (Auto) 5 % (0-9) 3 % (0-9) Eosinophils (%) (Auto) 0 % (0-3) 0 % (0-3) Basophils (%) (Auto) 0 % (0-3) 0 % (0-3) Neutrophils # (Auto) 13.4 x10^3uL (1.8-7.7) 9.6 x10^3uL (1.8-7.7) Lymphocytes # (Auto) 0.4 x10^3/uL (1.0-4.8) 0.3 x10^3/uL (1.0-4.8) Monocytes # (Auto) 0.7 x10^3/uL (0.0-1.1) 0.3 x10^3/uL (0.0-1.1) Eosinophils # (Auto) 0.0 x10^3/uL (0.0-0.7) 0.0 x10^3/uL (0.0-0.7) Basophils # (Auto) 0.0 x10^3/uL (0.0-0.2) 0.0 x10^3/uL (0.0-0.2) Sodium Level 140 mmol/L (136-145) 143 mmol/L (136-145) Potassium Level 4.8 mmol/L (3.5-5.1) 4.4 mmol/L (3.5-5.1) Chloride Level 107 mmol/L (98-107) 109 mmol/L (98-107) Carbon Dioxide Level 19 mmol/L (21-32) 19 mmol/L (21-32) Anion Gap 14 (6-14) 15 (6-14) Blood Urea Nitrogen 63 mg/dL (8-26) 52 mg/dL (8-26) Creatinine 3.0 mg/dL (0.7-1.3) 2.6 mg/dL (0.7-1.3) Estimated GFR (Cockcroft-Gault) 26.7 31.5 Glucose Level 167 mg/dL (70-99) 178 mg/dL (70-99) Uric Acid 7.7 mg/dL (3.5-7.2) Calcium Level 7.2 mg/dL (8.5-10.1) 7.0 mg/dL (8.5-10.1) Phosphorus Level 4.8 mg/dL (2.6-4.7) Magnesium Level 2.3 mg/dL (1.8-2.4) Lactate Dehydrogenase 160 U/L (85-227) Total Protein 6.5 g/dL (6.4-8.2) 6.9 g/dL (6.4-8.2) BUN/Creatinine Ratio 20 (6-20) Total Bilirubin 0.2 mg/dL (0.2-1.0) Aspartate Amino Transf (AST/SGOT) 16 U/L (15-37) Alanine Aminotransferase (ALT/SGPT) 40 U/L (16-63) Alkaline Phosphatase 148 U/L (46-116) Albumin 1.9 g/dL (3.4-5.0) Albumin/Globulin Ratio 0.4 (1.0-1.7) Laboratory Tests Test 03/12/19 03:29 White Blood Count 10.1 x10^3/uL (4.0-11.0) Red Blood Count 2.72 x10^6/uL (4.30-5.70) Hemoglobin 7.7 g/dL (13.0-17.5) Hematocrit 24.4 % (39.0-53.0) Mean Corpuscular Volume 90 fL (79-100) Mean Corpuscular Hemoglobin 28 pg (25-35) Mean Corpuscular Hemoglobin Concent 32 g/dL (31-37) Red Cell Distribution Width 18.8 % (11.5-14.5) Platelet Count 374 x10^3/uL (140-400) Neutrophils (%) (Auto) 94 % (31-73) Lymphocytes (%) (Auto) 3 % (24-48) Monocytes (%) (Auto) 3 % (0-9) Eosinophils (%) (Auto) 0 % (0-3) Basophils (%) (Auto) 0 % (0-3) Neutrophils # (Auto) 9.6 x10^3uL (1.8-7.7) Lymphocytes # (Auto) 0.3 x10^3/uL (1.0-4.8) Monocytes # (Auto) 0.3 x10^3/uL (0.0-1.1) Eosinophils # (Auto) 0.0 x10^3/uL (0.0-0.7) Basophils # (Auto) 0.0 x10^3/uL (0.0-0.2) Sodium Level 143 mmol/L (136-145) Potassium Level 4.4 mmol/L (3.5-5.1) Chloride Level 109 mmol/L (98-107) Carbon Dioxide Level 19 mmol/L (21-32) Anion Gap 15 (6-14) Blood Urea Nitrogen 52 mg/dL (8-26) Creatinine 2.6 mg/dL (0.7-1.3) Estimated GFR (Cockcroft-Gault) 31.5 BUN/Creatinine Ratio 20 (6-20) Glucose Level 178 mg/dL (70-99) Calcium Level 7.0 mg/dL (8.5-10.1) Total Bilirubin 0.2 mg/dL (0.2-1.0) Aspartate Amino Transf (AST/SGOT) 16 U/L (15-37) Alanine Aminotransferase (ALT/SGPT) 40 U/L (16-63) Alkaline Phosphatase 148 U/L (46-116) Total Protein 6.9 g/dL (6.4-8.2) Albumin 1.9 g/dL (3.4-5.0) Albumin/Globulin Ratio 0.4 (1.0-1.7) Microbiology 03/09/19 Blood Culture - Preliminary, Resulted NO GROWTH AFTER 3 DAYS Medications Current Medications Sodium Chloride 1,000 ml @ 1,000 mls/hr 1X ONCE IV Last administered on at 15:30; Start 03/08/19 at 15:30; Stop 03/08/19 at 16:29; Status DC Ondansetron HCl (Zofran) 4 mg 1X ONCE IV ; Start 03/08/19 at 15:30; Stop at 15:31; Status DC Morphine Sulfate (Morphine Sulfate) 5 mg 1X ONCE IV ; Start 03/08/19 at 15:30; Stop 03/08/19 at 15:31; Status DC Sodium Chloride 1,000 ml @ 100 mls/hr Q10H IV Last administered on 03/08/19at 21:18; Start 03/08/19 at 19:04; Stop 03/09/19 at 05:25; Status DC Ondansetron HCl (Zofran) 4 mg PRN Q6HRS PRN IV NAUSEA/VOMITING, 1ST CHOICE; Start 03/08/19 at 19:15 Prochlorperazine Edisylate (Compazine) 10 mg PRN Q6HRS PRN IV NAUSEA/VOMITING, 2ND CHOICE; Start 03/08/19 at 19:15 Prochlorperazine (Compazine) 25 mg PRN Q12HR PRN VA NAUSEA/VOMITING; Start 11/14 at 19:15 Calcium Carbonate/ Glycine (Tums) 500 mg PRN Q3HRS PRN PO UPSET STOMACH; Start 03/08/19 at 19:15 Oxycodone HCl (Roxicodone) 5 mg PRN Q3HRS PRN PO BREAKTHROUGH PAIN Last administered on 03/11/19at 03:42; Start 03/08/19 at 19:15 Morphine Sulfate (Morphine Sulfate) 2 mg PRN Q2HR PRN IV PAIN Last administered on 03/09/19at 05:33; Start 03/08/19 at 19:15 Acetaminophen (Tylenol) 650 mg PRN Q6HRS PRN PO Headaches, Temp > 101.5F; Start 03/08/19 at 19:15 Piperacillin Sod/ Tazobactam Sod (Zosyn Per Pharmacy) 1 each PRN DAILY PRN MC SEE COMMENTS; Start 03/08/19 at 19:15 Hydralazine HCl (Apresoline Inj) 10 mg PRN Q4HRS PRN IVP ELEVATED BP, SEE COMMENTS; Start 03/08/19 at 19:15 Piperacillin Sod/ Tazobactam Sod 2.25 gm/Sodium Chloride 50 ml @ 100 mls/hr Q6HRS IV Last administered on 03/12/19at 05:28; Start 03/08/19 at 19:30 Ondansetron HCl (Zofran) 4 mg PRN Q8HRS PRN IV NAUSEA/VOMITING; Start 03/08/19 at 19:45; Stop 03/09/19 at 19:44; Status Cancel Morphine Sulfate (Morphine Sulfate) 4 mg PRN Q2HR PRN IV PAIN; Start 03/08/19 at 19:45; Stop 03/09/19 at 19:44; Status Cancel Sodium Chloride 1,000 ml @ 100 mls/hr 1X ONCE IV ; Start 03/08/19 at 19:45; Stop 03/09/19 at 05:44; Status Cancel Dextrose/Sodium Chloride 1,000 ml @ 75 mls/hr [id number] IV Last administered on 03/11/19at 20:34; Start 03/09/19 at 05:30 Ceftriaxone Sodium (Rocephin) 1 gm Q24H IVP ; Start 03/09/19 at 08:00; Stop at 08:01; Status DC Ipratropium [place] (Atrovent) 0.5 mg RTQID NEB Last administered on 03/12/19 07:11; Start 03/09/19 at 08:00 Budesonide (Pulmicort) 0.5 mg RTBID NEB Last administered on 03/12/19 07:12; Start 03/09/19 at 08:00 Pantoprazole Sodium (PROTONIX VIAL for IV PUSH) 40 mg DAILYAC IVP Last administered on 03/12/19 09:53; Start 03/09/19 at 08:15 Methylprednisolone Sodium Succinate (SOLU-Medrol 125MG VIAL) 100 mg Q8HRS IV Last administered on 03/12/19 05:28; Start 03/09/19 at 14:00 Lactobacillus Rhamnosus (Culturelle) 1 cap BID PO Last administered on 09:53; Start 03/09/19 at 21:00 Linezolid (Zyvox) 600 mg BID PO Last administered on 03/12/19 09:53; Start at 14:30 Active Scripts Active Reported Zinc Sulfate 220 Mg Tablet 220 Mg PO DAILY Vitamin D3 (Cholecalciferol (Vitamin D3)) 5,000 Unit Tablet 2,000 Unit PO DAILY Stelara (Ustekinumab) 90 Mg/1 Ml Disp.syrin 90 Mg SQ EVERY 8 WEEKS Tamsulosin Hcl 0.4 Mg Cap.er.24h 1 Cap PO DAILY Prednisone 20 Mg Tablet 1 Tab PO BID Polyethylene Glycol 3350 255 Gm Powder 17 Gm PO DAILY Methotrexate (Methotrexate Sodium) 25 Mg/1 Ml Vial 25 Mg IJ WEEKLY Ensure Clear (Lactose-Reduced Food) 296 Ml Liquid 296 Ml PO 5XDAY Folic Acid 1 Mg Tablet 5 Tab PO DAILY Nexium Capsule (Esomeprazole Magnesium) 20 Mg Capsule.dr 20 Mg PO BID Eliquis (Apixaban) 5 Mg Tablet 5 Mg PO BID Carvedilol (Carvedilol) 12.5 Mg Tablet 12.5 Mg PO BIDWMEALS Calcium 600 + Vit D 200 Tablet (Calcium Carbonate/Vitamin D3) 1 Each Tablet 1 Each PO BID Bumetanide 2 Mg Tablet 1 Tab PO DAILY Vitals/I & O Vital Sign - Last 24 Hours 03/11/19 03/11/19 03/11/19 03/11/19 10:49 11:45 15:02 15:40 Temp 97.7 97.7 97.7 97.7 Pulse 68 59 Resp 18 18 B/P (MAP) 134/80 (98) 141/82 (101) Pulse Ox 98 97 98 98 O2 Delivery Room Air Room Air Room Air Room Air 03/11/19 03/11/19 03/11/19 03/11/19 18:53 19:45 20:00 23:00 Temp 97.8 98.5 97.8 98.5 Pulse 69 60 Resp 18 20 B/P (MAP) 148/80 (102) 141/88 (105) Pulse Ox 97 97 97 O2 Delivery Room Air Room Air Room Air Room Air 03/12/19 03/12/19 03/12/19 03/12/19 03:00 07:00 07:12 08:00 Temp 98.3 98.4 98.3 98.4 Pulse 56 49 Resp 20 20 B/P (MAP) 146/91 (109) 141/87 (105) Pulse Ox 97 98 98 O2 Delivery Room Air Room Air Room Air Room Air 03/12/19 10:42 Temp 98.0 98.0 Pulse 58 Resp 18 B/P (MAP) 156/79 (104) Pulse Ox 98 O2 Delivery Room Air Intake and Output 03/11/19 03/11/19 03/12/19 15:00 23:00 07:00 Intake Total 600 ml 500 ml 400 ml Output Total 1350 ml 600 ml Balance 600 ml -850 ml -200 ml ROYA CAIN MD Mar 12, 2019 10:47
--- NOTE | 2019-03-12 11:33 | PDOC ---
Subjective: Subjective: No complaints. Tolerating PO, denies abd pain, ostomy functioning. Objective: Objective: D/w RN - ?DC today Vital Signs: Vital Signs Date Time Temp Pulse Resp B/P (MAP) Pulse Ox O2 Delivery O2 Flow Rate FiO2 03/12/19 10:42 98.0 58 18 156/79 (104) 98 Room Air 98.0 Labs: Laboratory Tests Test 03/12/19 03:29 White Blood Count 10.1 x10^3/uL Red Blood Count 2.72 x10^6/uL Hemoglobin 7.7 g/dL Hematocrit 24.4 % Mean Corpuscular Volume 90 fL Mean Corpuscular Hemoglobin 28 pg Mean Corpuscular Hemoglobin Concent 32 g/dL Red Cell Distribution Width 18.8 % Platelet Count 374 x10^3/uL Neutrophils (%) (Auto) 94 % Lymphocytes (%) (Auto) 3 % Monocytes (%) (Auto) 3 % Eosinophils (%) (Auto) 0 % Basophils (%) (Auto) 0 % Neutrophils # (Auto) 9.6 x10^3uL Lymphocytes # (Auto) 0.3 x10^3/uL Monocytes # (Auto) 0.3 x10^3/uL Eosinophils # (Auto) 0.0 x10^3/uL Basophils # (Auto) 0.0 x10^3/uL Sodium Level 143 mmol/L Potassium Level 4.4 mmol/L Chloride Level 109 mmol/L Carbon Dioxide Level 19 mmol/L Anion Gap 15 Blood Urea Nitrogen 52 mg/dL Creatinine 2.6 mg/dL Estimated GFR (Cockcroft-Gault) 31.5 BUN/Creatinine Ratio 20 Glucose Level 178 mg/dL Calcium Level 7.0 mg/dL Total Bilirubin 0.2 mg/dL Aspartate Amino Transf (AST/SGOT) 16 U/L Alanine Aminotransferase (ALT/SGPT) 40 U/L Alkaline Phosphatase 148 U/L Total Protein 6.9 g/dL Albumin 1.9 g/dL Albumin/Globulin Ratio 0.4 PE: GEN: NAD LUNGS: room air, diminished bases HEART: RRR ABD: LLQ ostomy w/ stool NEURO/PSYCH: A & O 3 A/P: Pleural effusion - s/p thoracentesis - cytology, flow cytometry pending, AFB pending H/o Crohn's disease w/ resection/ostomy (last in 10/2018) - plans for ?revision/ reversal @ [facility] on 03/18 (sees Dr. Teague and Dr. Cerrato) H/o short bowel syndrome on home TPN - tolerating PO here w/o excessive ostomy output Anemia, CKD -- DC per primary, follow-up re: pending labs (could check Quantiferon as outpt) and follow-up as planned w/ [facility]. ?need for IV steroid DEANDRA SEAY Mar 12, 2019 11:33
--- NOTE | 2019-03-12 11:51 | PDOC ---
PULMONARY PROGRESS NOTES Subjective sob better, has occ cough, no pain, thoracentesis done 03/10 Vitals Vital Signs Date Time Temp Pulse Resp B/P (MAP) Pulse Ox O2 Delivery O2 Flow Rate FiO2 03/12/19 11:30 98 Room Air 03/12/19 10:42 98.0 58 18 156/79 (104) 98.0 ROS: No Nausea, No Chest Pain General: Alert, Oriented X4 HEENT: Other (nc at perrl ) Lungs: Other (dull on r side) Cardiovascular: S1, S2 Abdomen: Soft, Non-tender Neuro Exam: Alert Extremities: No Edema Skin: Warm Labs Laboratory Tests Test 03/11/19 03:30 03/12/19 03:29 White Blood Count 14.5 x10^3/uL (4.0-11.0) 10.1 x10^3/uL (4.0-11.0) Red Blood Count 2.74 x10^6/uL (4.30-5.70) 2.72 x10^6/uL (4.30-5.70) Hemoglobin 7.7 g/dL (13.0-17.5) 7.7 g/dL (13.0-17.5) Hematocrit 24.4 % (39.0-53.0) 24.4 % (39.0-53.0) Mean Corpuscular Volume 89 fL (79-100) 90 fL (79-100) Mean Corpuscular Hemoglobin 28 pg (25-35) 28 pg (25-35) Mean Corpuscular Hemoglobin Concent 32 g/dL (31-37) 32 g/dL (31-37) Red Cell Distribution Width 18.7 % (11.5-14.5) 18.8 % (11.5-14.5) Platelet Count 358 x10^3/uL (140-400) 374 x10^3/uL (140-400) Neutrophils (%) (Auto) 93 % (31-73) 94 % (31-73) Lymphocytes (%) (Auto) 3 % (24-48) 3 % (24-48) Monocytes (%) (Auto) 5 % (0-9) 3 % (0-9) Eosinophils (%) (Auto) 0 % (0-3) 0 % (0-3) Basophils (%) (Auto) 0 % (0-3) 0 % (0-3) Neutrophils # (Auto) 13.4 x10^3uL (1.8-7.7) 9.6 x10^3uL (1.8-7.7) Lymphocytes # (Auto) 0.4 x10^3/uL (1.0-4.8) 0.3 x10^3/uL (1.0-4.8) Monocytes # (Auto) 0.7 x10^3/uL (0.0-1.1) 0.3 x10^3/uL (0.0-1.1) Eosinophils # (Auto) 0.0 x10^3/uL (0.0-0.7) 0.0 x10^3/uL (0.0-0.7) Basophils # (Auto) 0.0 x10^3/uL (0.0-0.2) 0.0 x10^3/uL (0.0-0.2) Sodium Level 140 mmol/L (136-145) 143 mmol/L (136-145) Potassium Level 4.8 mmol/L (3.5-5.1) 4.4 mmol/L (3.5-5.1) Chloride Level 107 mmol/L (98-107) 109 mmol/L (98-107) Carbon Dioxide Level 19 mmol/L (21-32) 19 mmol/L (21-32) Anion Gap 14 (6-14) 15 (6-14) Blood Urea Nitrogen 63 mg/dL (8-26) 52 mg/dL (8-26) Creatinine 3.0 mg/dL (0.7-1.3) 2.6 mg/dL (0.7-1.3) Estimated GFR (Cockcroft-Gault) 26.7 31.5 Glucose Level 167 mg/dL (70-99) 178 mg/dL (70-99) Uric Acid 7.7 mg/dL (3.5-7.2) Calcium Level 7.2 mg/dL (8.5-10.1) 7.0 mg/dL (8.5-10.1) Phosphorus Level 4.8 mg/dL (2.6-4.7) Magnesium Level 2.3 mg/dL (1.8-2.4) Lactate Dehydrogenase 160 U/L (85-227) Total Protein 6.5 g/dL (6.4-8.2) 6.9 g/dL (6.4-8.2) BUN/Creatinine Ratio 20 (6-20) Total Bilirubin 0.2 mg/dL (0.2-1.0) Aspartate Amino Transf (AST/SGOT) 16 U/L (15-37) Alanine Aminotransferase (ALT/SGPT) 40 U/L (16-63) Alkaline Phosphatase 148 U/L (46-116) Albumin 1.9 g/dL (3.4-5.0) Albumin/Globulin Ratio 0.4 (1.0-1.7) Laboratory Tests Test 03/12/19 03:29 White Blood Count 10.1 x10^3/uL (4.0-11.0) Red Blood Count 2.72 x10^6/uL (4.30-5.70) Hemoglobin 7.7 g/dL (13.0-17.5) Hematocrit 24.4 % (39.0-53.0) Mean Corpuscular Volume 90 fL (79-100) Mean Corpuscular Hemoglobin 28 pg (25-35) Mean Corpuscular Hemoglobin Concent 32 g/dL (31-37) Red Cell Distribution Width 18.8 % (11.5-14.5) Platelet Count 374 x10^3/uL (140-400) Neutrophils (%) (Auto) 94 % (31-73) Lymphocytes (%) (Auto) 3 % (24-48) Monocytes (%) (Auto) 3 % (0-9) Eosinophils (%) (Auto) 0 % (0-3) Basophils (%) (Auto) 0 % (0-3) Neutrophils # (Auto) 9.6 x10^3uL (1.8-7.7) Lymphocytes # (Auto) 0.3 x10^3/uL (1.0-4.8) Monocytes # (Auto) 0.3 x10^3/uL (0.0-1.1) Eosinophils # (Auto) 0.0 x10^3/uL (0.0-0.7) Basophils # (Auto) 0.0 x10^3/uL (0.0-0.2) Sodium Level 143 mmol/L (136-145) Potassium Level 4.4 mmol/L (3.5-5.1) Chloride Level 109 mmol/L (98-107) Carbon Dioxide Level 19 mmol/L (21-32) Anion Gap 15 (6-14) Blood Urea Nitrogen 52 mg/dL (8-26) Creatinine 2.6 mg/dL (0.7-1.3) Estimated GFR (Cockcroft-Gault) 31.5 BUN/Creatinine Ratio 20 (6-20) Glucose Level 178 mg/dL (70-99) Calcium Level 7.0 mg/dL (8.5-10.1) Total Bilirubin 0.2 mg/dL (0.2-1.0) Aspartate Amino Transf (AST/SGOT) 16 U/L (15-37) Alanine Aminotransferase (ALT/SGPT) 40 U/L (16-63) Alkaline Phosphatase 148 U/L (46-116) Total Protein 6.9 g/dL (6.4-8.2) Albumin 1.9 g/dL (3.4-5.0) Albumin/Globulin Ratio 0.4 (1.0-1.7) Medications Active Scripts Medications Dose Route/Sig Max Daily Dose Days Date Category Zinc Sulfate 220 Mg Tablet 220 Mg PO DAILY 10/26/18 Reported Vitamin D3 (Cholecalciferol (Vitamin D3)) 5,000 Unit Tablet 2,000 Unit PO DAILY 10/26/18 Reported Stelara (Ustekinumab) 90 Mg/1 Ml Disp.syrin 90 Mg SQ EVERY 8 WEEKS 10/26/18 Reported Tamsulosin Hcl 0.4 Mg Cap.er.24h 1 Cap PO DAILY 10/26/18 Reported Prednisone 20 Mg Tablet 1 Tab PO BID 10/26/18 Reported Polyethylene Glycol 3350 255 Gm Powder 17 Gm PO DAILY 10/26/18 Reported Methotrexate (Methotrexate Sodium) 25 Mg/1 Ml Vial 25 Mg IJ WEEKLY 10/26/18 Reported Ensure Clear (Lactose-Reduced Food) 296 Ml Liquid 296 Ml PO 5XDAY 10/26/18 Reported Folic Acid 1 Mg Tablet 5 Tab PO DAILY 10/26/18 Reported Nexium Capsule (Esomeprazole Magnesium) 20 Mg Capsule.dr 20 Mg PO BID 10/26/18 Reported Eliquis (Apixaban) 5 Mg Tablet 5 Mg PO BID 10/26/18 Reported Carvedilol (Carvedilol) 12.5 Mg Tablet 12.5 Mg PO BIDWMEALS 10/26/18 Reported Calcium 600 + Vit D 200 Tablet (Calcium Carbonate/Vitamin D3) 1 Each Tablet 1 Each PO BID 10/26/18 Reported Bumetanide 2 Mg Tablet 1 Tab PO DAILY 10/26/18 Reported Impression . 1. Acute respiratory failure secondary to large pleural effusion, cannot rule out pneumonia, intra abdominal infection source or sepsis 2. Abnormal CT of the chest with large right pleural effusion, infiltrate, atelectasis, questionable etiology. 3. Anemia. 4. Leukocytosis. 5. Acute kidney injury. 6. Abdominal pain, questionable colitis versus ileus versus others. 7. Wheezing, acute bronchospasm. 8. History of Crohn disease, status post bowel resection and colostomy. Plan . 1. Titrate FiO2 to keep O2 saturation 92%. 2. bronchodilator, 4. Repeat lactic acid normal, high procalcitonin. 5. Continue Zosyn. 6. Protonix for stress ulcer prophylaxis and SCDs for DVT prophylaxis. 7. right ultrasound-guided thoracentesis, follow cultures 8. surgery rec 9. cxr today discussed w rn, pt MITZI PURCELL MD Mar 12, 2019 11:51
--- NOTE | 2019-03-12 12:09 | PDOC ---
Infectious Disease Note Subjective: Subjective Pt has cough,sob abdo pain is improving no f/c/n/v/d Vital Signs: Vital Signs Vital Signs Date Time Temp Pulse Resp B/P (MAP) Pulse Ox O2 Delivery O2 Flow Rate FiO2 03/12/19 11:30 98 Room Air 03/12/19 10:42 98.0 58 18 156/79 (104) 98.0 Physical Exam: PHYSICAL EXAM GENERAL: Alert and oriented x 3 male in no acute distress, lying comfortably in bed, eating lunch. HEENT: Anicteric. Pupils equal, reactive. Extraocular movements intact. Edentulous. No thrush. Oral mucosa moist. No oropharyngeal exudate. NECK: Supple. No JVD. LUNGS: Decreased breath sounds on the right side. No wheezing. CARDIOVASCULAR: S1, S2 with no gallops or murmurs. ABDOMEN: Mildly distended, soft, mild diffuse tenderness present mainly in the right upper and lower quadrants. Bowel sounds present. No rebound, no guarding. EXTREMITIES: No edema, no cyanosis. DERMATOLOGIC: Warm, dry. No generalized rash. LINES: Right-sided chest wall PowerPICC looks okay. CENTRAL NERVOUS SYSTEM: Alert and oriented x 3. Grossly nonfocal. PSYCHIATRIC: Cooperative, appropriate mood and affect. Medications: Inpatient Meds: Current Medications Medications (Trade) Dose Ordered Sig/Vazquez Start Time Stop Time Status Last Admin Dose Admin Acetaminophen (Tylenol) 650 mg PRN Q6HRS PRN 03/08/19 19:15 Budesonide (Pulmicort) 0.5 mg RTBID 03/09/19 08:00 03/12/19 07:12 0.5 MG Calcium Carbonate/ Glycine (Tums) 500 mg PRN Q3HRS PRN 03/08/19 19:15 Ceftriaxone Sodium (Rocephin) 1 gm Q24H 03/09/19 08:00 03/09/19 08:01 DC Dextrose/Sodium Chloride 1,000 ml @ 75 mls/hr [id number] 03/09/19 05:30 03/11/19 20:34 75 MLS/HR Hydralazine HCl (Apresoline Inj) 10 mg PRN Q4HRS PRN 03/08/19 19:15 Ipratropium [place] (Atrovent) 0.5 mg RTQID 03/09/19 08:00 03/12/19 11:30 0.5 MG Lactobacillus Rhamnosus (Culturelle) 1 cap BID 03/09/19 21:00 03/12/19 09:53 1 CAP Linezolid (Zyvox) 600 mg BID 03/11/19 14:30 03/12/19 09:53 600 MG Methylprednisolone Sodium Succinate (SOLU-Medrol 125MG VIAL) 100 mg Q8HRS 03/09/19 14:00 03/12/19 05:28 100 MG Morphine Sulfate (Morphine Sulfate) 4 mg PRN Q2HR PRN 03/08/19 19:45 03/09/19 19:44 Cancel Ondansetron HCl (Zofran) 4 mg PRN Q8HRS PRN 03/08/19 19:45 03/09/19 19:44 Cancel Oxycodone HCl (Roxicodone) 5 mg PRN Q3HRS PRN 03/08/19 19:15 03/11/19 03:42 5 MG Pantoprazole Sodium (PROTONIX VIAL for IV PUSH) 40 mg DAILYAC 03/09/19 08:15 03/12/19 11:34 DC 03/12/19 09:53 40 MG Pantoprazole Sodium (Protonix) 40 mg BIDAC 03/12/19 16:30 Piperacillin Sod/ Tazobactam Sod (Zosyn Per Pharmacy) 1 each PRN DAILY PRN 03/08/19 19:15 Piperacillin Sod/ Tazobactam Sod 2.25 gm/Sodium Chloride 50 ml @ 100 mls/hr Q6HRS 03/08/19 19:30 03/12/19 05:28 100 MLS/HR Prochlorperazine (Compazine) 25 mg PRN Q12HR PRN 03/08/19 19:15 Prochlorperazine Edisylate (Compazine) 10 mg PRN Q6HRS PRN 03/08/19 19:15 Sodium Chloride 1,000 ml @ 100 mls/hr 1X ONCE 03/08/19 19:45 03/09/19 05:44 Cancel Labs: Lab Laboratory Tests Test 03/12/19 03:29 White Blood Count 10.1 x10^3/uL (4.0-11.0) Red Blood Count 2.72 x10^6/uL (4.30-5.70) Hemoglobin 7.7 g/dL (13.0-17.5) Hematocrit 24.4 % (39.0-53.0) Mean Corpuscular Volume 90 fL (79-100) Mean Corpuscular Hemoglobin 28 pg (25-35) Mean Corpuscular Hemoglobin Concent 32 g/dL (31-37) Red Cell Distribution Width 18.8 % (11.5-14.5) Platelet Count 374 x10^3/uL (140-400) Neutrophils (%) (Auto) 94 % (31-73) Lymphocytes (%) (Auto) 3 % (24-48) Monocytes (%) (Auto) 3 % (0-9) Eosinophils (%) (Auto) 0 % (0-3) Basophils (%) (Auto) 0 % (0-3) Neutrophils # (Auto) 9.6 x10^3uL (1.8-7.7) Lymphocytes # (Auto) 0.3 x10^3/uL (1.0-4.8) Monocytes # (Auto) 0.3 x10^3/uL (0.0-1.1) Eosinophils # (Auto) 0.0 x10^3/uL (0.0-0.7) Basophils # (Auto) 0.0 x10^3/uL (0.0-0.2) Sodium Level 143 mmol/L (136-145) Potassium Level 4.4 mmol/L (3.5-5.1) Chloride Level 109 mmol/L (98-107) Carbon Dioxide Level 19 mmol/L (21-32) Anion Gap 15 (6-14) Blood Urea Nitrogen 52 mg/dL (8-26) Creatinine 2.6 mg/dL (0.7-1.3) Estimated GFR (Cockcroft-Gault) 31.5 BUN/Creatinine Ratio 20 (6-20) Glucose Level 178 mg/dL (70-99) Calcium Level 7.0 mg/dL (8.5-10.1) Total Bilirubin 0.2 mg/dL (0.2-1.0) Aspartate Amino Transf (AST/SGOT) 16 U/L (15-37) Alanine Aminotransferase (ALT/SGPT) 40 U/L (16-63) Alkaline Phosphatase 148 U/L (46-116) Total Protein 6.9 g/dL (6.4-8.2) Albumin 1.9 g/dL (3.4-5.0) Albumin/Globulin Ratio 0.4 (1.0-1.7) Objective: Assessment: Dyspnea, cough, pleural effusion Abdominal pain Cholelithiasis S/P colostomy Leucocytosis improving IVANA Anemia. History of Crohn's disease, status post bowel resection and colostomy, awaiting for surgery at on 03/18/2019 for correction of stoma deformity. History of weight loss, now resolving with TPN prior to admission. Cholelithiasis without clinical evidence of cholangitis or cholecystitis. Protein-calorie malnutrition. 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 Plan: Plan of Care Cont zosyn/zyvox add empiric doxycycline ? evaluation for swallowing f/u BC and pleural fluid c/s F/U Cytology D/W Mother DEN HOWARD MD Mar 12, 2019 12:09
--- NOTE | 2019-03-12 13:34 | PDOC ---
Provider Note Provider Note SURG tolerating full liquid diet, asking for some Boost belly soft vss no new surg recs NATHEN JOYCE MD Mar 12, 2019 13:34
[2019-03-12 14:44] VITALS: BP 145/82
--- NOTE | 2019-03-12 14:53 | NUR ---
SW following pt. Pt seen by PT/OT and recommendation is home independent. Discussed with RN and swallow eval is pending as pt has been complaining of cough after eating. Will continue to follow.
[2019-03-12] MEDS: IV DEXTROSE 5 %-0.45 % NACL 1,000 ML IV SCH (15:17)
--- NOTE | 2019-03-12 17:07 | PATHOLOGY ---
Note [facility] Accession Number: [id number] TESTS RESULT FLAG UNITS REF RANGE LAB Clinician Provided Cytology Information No. of containers..01 Other (Miscellaneous) Source: RT CHEST FLUID DIAGNOSIS: RT CHEST FLUID NEGATIVE FOR MALIGNANT CELLS. FEW MESOTHELIAL CELLS, NEUTROPHILS, RED BLOOD CELLS, AND FEW LYMPHOCYTES PRESENT. SPECIMEN SENT FOR FLOW CYTOMETRIC ANALYSIS. THIS INTERPRETATION INCLUDES EVALUATION OF A CELL BLOCK. Signed out by: 02 Simone Ibarra MD, Pathologist NPI- [id number] Performed by: Claudia Quan, Shearing Machine Tender ([facility]) Gross description: 01 5ML, RED, CLOUDY /LCS FLAG LEGEND: L-Low Normal,H-High Normal,LL-Alert Low,HH-Alert High <-Panic Low,>-Panic High,A-Abnormal,AA-Critical Abnormal Performed at: 01 [facility] [address] [place] [address] Lv Thomas MD, 02 [facility] [address] [place] [address] Simone Ibarra MD, Specimen Comment: A courtesy copy of this report has been sent to Specimen Comment: [phone], , . Specimen Comment: Report sent to ,DR ZAPATA / DR CAREY Specimen Comment: A duplicate report has been generated due to demographic updates. Performed at: 01 [facility] [address], [place], [place] [id number] MD Lv Thomas MD Phone: [phone]
[2019-03-12] MEDS: PANTOPRAZOLE 40 MG TABLET.DR. PO SCH (17:55)
[2019-03-12] MEDS: oxyCODONE IR 5 MG TABLET PO PRN ×2 (17:55→21:07)
[2019-03-12 19:00] VITALS: BP 160/88
[2019-03-12] MEDS: DOXYCYCLINE HYCLATE 100 MG in IV DEXTROSE 5% 100ML 100 ML IV SCH (20:59)
[2019-03-13] MEDS: methylPREDNISolone SOD SUCC PF 125 MG/2 ML VIAL. IV SCH (05:42)
[2019-03-13] MEDS: IV DEXTROSE 5 %-0.45 % NACL 1,000 ML IV SCH (05:42)
[2019-03-13] MEDS: PIPERACILLIN/TAZOBACTAM 2.25 GM in IV NORMAL SALINE 50ML 50 ML IV SCH ×4 (05:43→12:15)
[2019-03-13] MEDS: IPRATROPIUM BROMIDE 0.5 MG/2.5 ML NEBU. NEB SCH ×2 (06:04→11:39)
[2019-03-13] MEDS: BUDESONIDE 0.5 MG/2 ML NEBU. NEB SCH (06:05)
--- NOTE | 2019-03-13 07:43 | RAD ---
Portable chest, 03/12/2019: HISTORY: Pleural effusion Comparison is made to a study from 03/10/2019. A right sided central venous catheter remains in place extending into the superior vena cava. The heart size is unchanged. The left chest remains clear. There is persistent pleural fluid and infiltrate in the right lower chest. Aeration of the right lung base has improved slightly. There is no evidence of pneumothorax. No new chest abnormality is detected. There is a moderate amount gas in the stomach. IMPRESSION: Moderate right basilar infiltrate and pleural fluid with slight improvement since 03/10/2019. Electronically signed by: Kenneth Allred MD (03/13/2019 7:39 AM) [facility]
--- NOTE | 2019-03-13 08:53 | PDOC ---
Subjective: Subjective: Has to leave the hospital today because he has a pre-op appt tomorrow that he can't miss. Tolerating PO, denies pain, ostomy functioning, denies SOA. Objective: Objective: Primary ordered TB spot test in place of Quantiferon - pt refused. Vital Signs: Vital Signs Date Time Temp Pulse Resp B/P (MAP) Pulse Ox O2 Delivery O2 Flow Rate FiO2 03/13/19 03:00 03/12/19 22:07 18 98 Room Air 03/12/19 19:00 97.9 53 97.9 03/12/19 18:55 2.0 Labs: AFB SPECIMEN PROCESSING Final Concentration AFB CULTURE FINAL PENDING AFB CULTURE GRAM STAIN Final Negative ORDERED: ANAER/AEROB/GS Procedure Result ANAEROBIC-AEROBIC CULTURE PENDING ANAEROBIC RES 1 PENDING AEROBIC CULT PENDING AEROBIC RES 1 PENDING GRAM STAIN Final Final report GRAM STAIN RES 1 Final Comment Moderate amount of white blood cells. GRAM STAIN RES 2 Final No organisms seen PE: GEN: NAD - dressed to leave, breakfast tray empty LUNGS: room air NEURO/PSYCH: A & O 3, a little frustrated A/P: Pleural effusion - s/p thoracentesis - cytology and AFB results as above H/o Crohn's disease w/ resection/ostomy - follows w/ [facility], next surgery planned w/ pre-op appt tomorrow -- DC per primary, follow-up w/ [facility] as planned. DEANDRA SEAY Mar 13, 2019 08:53
[2019-03-13] MEDS: LINEZOLID 600 MG TABLET PO SCH (09:09)
[2019-03-13] MEDS: PANTOPRAZOLE 40 MG TABLET.DR. PO SCH (09:09)
[2019-03-13] MEDS: DOXYCYCLINE HYCLATE 100 MG in IV DEXTROSE 5% 100ML 100 ML IV SCH (09:09)
[2019-03-13] MEDS: LACTOBACILLUS RHAMNOSUS GG 1 CAPSULE. PO SCH (09:09)
--- NOTE | 2019-03-13 10:15 | PDOC ---
PROGRESS NOTES History of Present Illness History of Present Illness VTE Prophylaxis Ordered VTE Prophylaxis Devices: No VTE Pharmacological Prophylaxi: Yes Assessment/Plan Assessment/Plan Assessment/Plan Assessment/Plan acute hypoxic resp failure acute asthma exac sepsis s/p colostomy at [facility] PLANNED revision March 18 Large right-sided pleural effusion with adjacent airspace consolidation. Follow-up could be obtained to ensure this resolves. Improved right pleural effusion, no pneumothorax. 03/10 POST THORACENTESIS colitis cholelithiasis GB distention acute renal failure, ATN Multiloculated pleural effusion. Aspiration of 1 L from the right hemithorax. 03/10 referral to [facility] to follow up with his surgeon DR JOYCE following iv steroids, albuterol pcxr CONSULT IR EMPERIC IV ANTIBIOTICS, ZOSYN, ZYVOX BLOOD CULT SCD'S SWALLOW SCREEN d/w dr lees cont home tpn 34 MIN PT EXAM d/c planning time , CHART REVIEW, > 50% OF TIME SPENT WITH EXAM, CHART REVIEW, PT CARE COORDINATION Vitals Vitals Vital Signs Date Time Temp Pulse Resp B/P (MAP) Pulse Ox O2 Delivery O2 Flow Rate FiO2 03/13/19 08:00 Room Air 03/13/19 03:00 03/12/19 22:07 18 98 03/12/19 19:00 97.9 53 97.9 03/12/19 18:55 2.0 Physical Exam Physical Exam GENERAL: Alert and oriented x 3 male in no acute distress, lying comfortably in bed, eating lunch. HEENT: Anicteric. Pupils equal, reactive. Extraocular movements intact. Edentulous. No thrush. Oral mucosa moist. No oropharyngeal exudate. NECK: Supple. No JVD. LUNGS: Decreased breath sounds on the right side. No wheezing. CARDIOVASCULAR: S1, S2 with no gallops or murmurs. ABDOMEN: Mildly distended, soft, mild diffuse tenderness present mainly in the right upper and lower quadrants. Bowel sounds present. No rebound, no guarding. EXTREMITIES: No edema, no cyanosis. DERMATOLOGIC: Warm, dry. No generalized rash. LINES: Right-sided chest wall PowerPICC looks okay. CENTRAL NERVOUS SYSTEM: Alert and oriented x 3. Grossly nonfocal. PSYCHIATRIC: Cooperative, appropriate mood and affect. General: Alert, Oriented X3, Cooperative, No acute distress Heart: Regular rate, Normal S1, Normal S2 Lungs: Clear, Other (dull on r side) Abdomen: Soft, No tenderness Extremities: No clubbing, No cyanosis, No edema Skin: No breakdown, No significant lesion Labs LABS Portable chest, 03/12/2019: HISTORY: Pleural effusion Comparison is made to a study from 03/10/2019. A right sided central venous catheter remains in place extending into the superior vena cava. The heart size is unchanged. The left chest remains clear. There is persistent pleural fluid and infiltrate in the right lower chest. Aeration of the right lung base has improved slightly. There is no evidence of pneumothorax. No new chest abnormality is detected. There is a moderate amount gas in the stomach. IMPRESSION: Moderate right basilar infiltrate and pleural fluid with slight improvement since 03/10/2019. Assessment and Plan Assessmemt and Plan Problems Medical Problems: (1) ARF (acute renal failure) Status: Acute (2) Cholelithiasis Status: Acute (3) Pleural effusion on right Status: Acute Comment Review of Relevant I have reviewed the following items martin (where applicable) has been applied. Labs Laboratory Tests Test 03/12/19 03:29 White Blood Count 10.1 x10^3/uL (4.0-11.0) Red Blood Count 2.72 x10^6/uL (4.30-5.70) Hemoglobin 7.7 g/dL (13.0-17.5) Hematocrit 24.4 % (39.0-53.0) Mean Corpuscular Volume 90 fL (79-100) Mean Corpuscular Hemoglobin 28 pg (25-35) Mean Corpuscular Hemoglobin Concent 32 g/dL (31-37) Red Cell Distribution Width 18.8 % (11.5-14.5) Platelet Count 374 x10^3/uL (140-400) Neutrophils (%) (Auto) 94 % (31-73) Lymphocytes (%) (Auto) 3 % (24-48) Monocytes (%) (Auto) 3 % (0-9) Eosinophils (%) (Auto) 0 % (0-3) Basophils (%) (Auto) 0 % (0-3) Neutrophils # (Auto) 9.6 x10^3uL (1.8-7.7) Lymphocytes # (Auto) 0.3 x10^3/uL (1.0-4.8) Monocytes # (Auto) 0.3 x10^3/uL (0.0-1.1) Eosinophils # (Auto) 0.0 x10^3/uL (0.0-0.7) Basophils # (Auto) 0.0 x10^3/uL (0.0-0.2) Sodium Level 143 mmol/L (136-145) Potassium Level 4.4 mmol/L (3.5-5.1) Chloride Level 109 mmol/L (98-107) Carbon Dioxide Level 19 mmol/L (21-32) Anion Gap 15 (6-14) Blood Urea Nitrogen 52 mg/dL (8-26) Creatinine 2.6 mg/dL (0.7-1.3) Estimated GFR (Cockcroft-Gault) 31.5 BUN/Creatinine Ratio 20 (6-20) Glucose Level 178 mg/dL (70-99) Calcium Level 7.0 mg/dL (8.5-10.1) Total Bilirubin 0.2 mg/dL (0.2-1.0) Aspartate Amino Transf (AST/SGOT) 16 U/L (15-37) Alanine Aminotransferase (ALT/SGPT) 40 U/L (16-63) Alkaline Phosphatase 148 U/L (46-116) Total Protein 6.9 g/dL (6.4-8.2) Albumin 1.9 g/dL (3.4-5.0) Albumin/Globulin Ratio 0.4 (1.0-1.7) Microbiology 03/09/19 Blood Culture - Preliminary, Resulted NO GROWTH AFTER 4 DAYS 03/10/19 AFB Specimen Processing Tissue - Final, Resulted 03/10/19 Acid Fast Bacilli Culture, Resulted Pending 03/10/19 Gram Stain - Final, Resulted Medications Current Medications Sodium Chloride 1,000 ml @ 1,000 mls/hr 1X ONCE IV Last administered on at 15:30; Start 03/08/19 at 15:30; Stop 03/08/19 at 16:29; Status DC Ondansetron HCl (Zofran) 4 mg 1X ONCE IV ; Start 03/08/19 at 15:30; Stop at 15:31; Status DC Morphine Sulfate (Morphine Sulfate) 5 mg 1X ONCE IV ; Start 03/08/19 at 15:30; Stop 03/08/19 at 15:31; Status DC Sodium Chloride 1,000 ml @ 100 mls/hr Q10H IV Last administered on 03/08/19at 21:18; Start 03/08/19 at 19:04; Stop 03/09/19 at 05:25; Status DC Ondansetron HCl (Zofran) 4 mg PRN Q6HRS PRN IV NAUSEA/VOMITING, 1ST CHOICE; Start 03/08/19 at 19:15 Prochlorperazine Edisylate (Compazine) 10 mg PRN Q6HRS PRN IV NAUSEA/VOMITING, 2ND CHOICE; Start 03/08/19 at 19:15 Prochlorperazine (Compazine) 25 mg PRN Q12HR PRN VA NAUSEA/VOMITING; Start 11/14 at 19:15 Calcium Carbonate/ Glycine (Tums) 500 mg PRN Q3HRS PRN PO UPSET STOMACH; Start 03/08/19 at 19:15 Oxycodone HCl (Roxicodone) 5 mg PRN Q3HRS PRN PO BREAKTHROUGH PAIN Last administered on 03/12/19at 21:07; Start 03/08/19 at 19:15 Morphine Sulfate (Morphine Sulfate) 2 mg PRN Q2HR PRN IV PAIN Last administered on 03/09/19at 05:33; Start 03/08/19 at 19:15 Acetaminophen (Tylenol) 650 mg PRN Q6HRS PRN PO Headaches, Temp > 101.5F; Start 03/08/19 at 19:15 Piperacillin Sod/ Tazobactam Sod (Zosyn Per Pharmacy) 1 each PRN DAILY PRN MC SEE COMMENTS; Start 03/08/19 at 19:15 Hydralazine HCl (Apresoline Inj) 10 mg PRN Q4HRS PRN IVP ELEVATED BP, SEE COMMENTS; Start 03/08/19 at 19:15 Piperacillin Sod/ Tazobactam Sod 2.25 gm/Sodium Chloride 50 ml @ 100 mls/hr Q6HRS IV Last administered on 03/13/19at 05:43; Start 03/08/19 at 19:30 Ondansetron HCl (Zofran) 4 mg PRN Q8HRS PRN IV NAUSEA/VOMITING; Start 03/08/19 at 19:45; Stop 03/09/19 at 19:44; Status Cancel Morphine Sulfate (Morphine Sulfate) 4 mg PRN Q2HR PRN IV PAIN; Start 03/08/19 at 19:45; Stop 03/09/19 at 19:44; Status Cancel Sodium Chloride 1,000 ml @ 100 mls/hr 1X ONCE IV ; Start 03/08/19 at 19:45; Stop 03/09/19 at 05:44; Status Cancel Dextrose/Sodium Chloride 1,000 ml @ 75 mls/hr [id number] IV Last administered on 03/13/19at 05:42; Start 03/09/19 at 05:30 Ceftriaxone Sodium (Rocephin) 1 gm Q24H IVP ; Start 03/09/19 at 08:00; Stop at 08:01; Status DC Ipratropium [place] (Atrovent) 0.5 mg RTQID NEB Last administered on 03/12/19 19:18; Start 03/09/19 at 08:00 Budesonide (Pulmicort) 0.5 mg RTBID NEB Last administered on 03/12/19 19:18; Start 03/09/19 at 08:00 Pantoprazole Sodium (PROTONIX VIAL for IV PUSH) 40 mg DAILYAC IVP Last administered on 03/12/19at 09:53; Start 03/09/19 at 08:15; Stop 03/12/19 at 11:34 ; Status DC Methylprednisolone Sodium Succinate (SOLU-Medrol 125MG VIAL) 100 mg Q8HRS IV Last administered on 03/13/19at 05:42; Start 03/09/19 at 14:00 Lactobacillus Rhamnosus (Culturelle) 1 cap BID PO Last administered on at 09:09; Start 03/09/19 at 21:00 Linezolid (Zyvox) 600 mg BID PO Last administered on 03/13/19 09:09; Start at 14:30 Pantoprazole Sodium (Protonix) 40 mg BIDAC PO Last administered on 03/13/19 09 :09; Start 03/12/19 at 16:30 Doxycycline Hyclate 100 mg/ Dextrose 100 ml @ 50 mls/hr Q12HR IV Last administered on 03/13/19at 09:09; Start 03/12/19 at 21:00 Active Scripts Active Reported Zinc Sulfate 220 Mg Tablet 220 Mg PO DAILY Vitamin D3 (Cholecalciferol (Vitamin D3)) 5,000 Unit Tablet 2,000 Unit PO DAILY Stelara (Ustekinumab) 90 Mg/1 Ml Disp.syrin 90 Mg SQ EVERY 8 WEEKS Tamsulosin Hcl 0.4 Mg Cap.er.24h 1 Cap PO DAILY Prednisone 20 Mg Tablet 1 Tab PO BID Polyethylene Glycol 3350 255 Gm Powder 17 Gm PO DAILY Methotrexate (Methotrexate Sodium) 25 Mg/1 Ml Vial 25 Mg IJ WEEKLY Ensure Clear (Lactose-Reduced Food) 296 Ml Liquid 296 Ml PO 5XDAY Folic Acid 1 Mg Tablet 5 Tab PO DAILY Nexium Capsule (Esomeprazole Magnesium) 20 Mg Capsule.dr 20 Mg PO BID Eliquis (Apixaban) 5 Mg Tablet 5 Mg PO BID Carvedilol (Carvedilol) 12.5 Mg Tablet 12.5 Mg PO BIDWMEALS Calcium 600 + Vit D 200 Tablet (Calcium Carbonate/Vitamin D3) 1 Each Tablet 1 Each PO BID Bumetanide 2 Mg Tablet 1 Tab PO DAILY Vitals/I & O Vital Sign - Last 24 Hours 03/12/19 03/12/19 03/12/19 03/12/19 10:42 11:30 14:44 18:55 Temp 98.0 98.0 98.0 98.0 Pulse 58 60 Resp 18 18 B/P (MAP) 156/79 (104) 145/82 (103) Pulse Ox 98 98 98 O2 Delivery Room Air Room Air Room Air O2 Flow Rate 2.0 03/12/19 03/12/19 03/12/19 03/12/19 19:00 19:18 20:00 21:07 Temp 97.9 97.9 Pulse 53 Resp 18 18 B/P (MAP) 160/88 (112) Pulse Ox 98 98 98 O2 Delivery Room Air Room Air Room Air 03/12/19 03/12/19 03/13/19 03/13/19 22:07 23:00 03:00 08:00 Resp 18 B/P (MAP) Pulse Ox 98 O2 Delivery Room Air Room Air Intake and Output 03/12/19 03/12/19 03/13/19 14:59 22:59 06:59 Intake Total 600 ml 700 ml 700 ml Output Total 1250 ml Balance 600 ml -550 ml 700 ml ROYA CAIN MD Mar 13, 2019 10:15
--- NOTE | 2019-03-13 10:27 | PDOC ---
Infectious Disease Note Subjective: Subjective pt denies a ny complaints ambulating in hallways denies any ch estpain, abdo pain,flank pain no f/c/n/v/d wants to be dc home today as he has appt with [facility] tomorrow D/W RN ROS: ROS Negative except for above. Vital Signs: Vital Signs Vital Signs Date Time Temp Pulse Resp B/P (MAP) Pulse Ox O2 Delivery O2 Flow Rate FiO2 03/13/19 08:00 Room Air 03/13/19 03:00 03/12/19 22:07 18 98 03/12/19 19:00 97.9 53 97.9 03/12/19 18:55 2.0 Physical Exam: PHYSICAL EXAM GENERAL: Alert and oriented x 3 male in no acute distress,sitting in chair HEENT: Anicteric. Pupils equal, reactive. Extraocular movements intact. Edentulous. No thrush. Oral mucosa moist. No oropharyngeal exudate. NECK: Supple. No JVD. LUNGS: Decreased breath sounds on the right side. No wheezing. CARDIOVASCULAR: S1, S2 with no gallops or murmurs. ABDOMEN: colostomy bag +, no abdo pain, no distention, Bowel sounds present. No rebound, no guarding. EXTREMITIES: No edema, no cyanosis. DERMATOLOGIC: Warm, dry. No generalized rash. LINES: Right-sided chest wall PowerPICC looks okay.POA CENTRAL NERVOUS SYSTEM: Alert and oriented x 3. Grossly nonfocal. PSYCHIATRIC: Cooperative, appropriate mood and affect. Medications: Inpatient Meds: Current Medications Medications (Trade) Dose Ordered Sig/Vazquez Start Time Stop Time Status Last Admin Dose Admin Acetaminophen (Tylenol) 650 mg PRN Q6HRS PRN 03/08/19 19:15 Budesonide (Pulmicort) 0.5 mg RTBID 03/09/19 08:00 03/12/19 19:18 0.5 MG Calcium Carbonate/ Glycine (Tums) 500 mg PRN Q3HRS PRN 03/08/19 19:15 Ceftriaxone Sodium (Rocephin) 1 gm Q24H 03/09/19 08:00 03/09/19 08:01 DC Dextrose/Sodium Chloride 1,000 ml @ 75 mls/hr [id number] 03/09/19 05:30 03/13/19 05:42 75 MLS/HR Doxycycline Hyclate 100 mg/ Dextrose 100 ml @ 50 mls/hr Q12HR 03/12/19 21:00 03/13/19 09:09 50 MLS/HR Hydralazine HCl (Apresoline Inj) 10 mg PRN Q4HRS PRN 03/08/19 19:15 Ipratropium [place] (Atrovent) 0.5 mg RTQID 03/09/19 08:00 03/12/19 19:18 0.5 MG Lactobacillus Rhamnosus (Culturelle) 1 cap BID 03/09/19 21:00 03/13/19 09:09 1 CAP Linezolid (Zyvox) 600 mg BID 03/11/19 14:30 03/13/19 09:09 600 MG Methylprednisolone Sodium Succinate (SOLU-Medrol 125MG VIAL) 100 mg Q8HRS 03/09/19 14:00 03/13/19 05:42 100 MG Morphine Sulfate (Morphine Sulfate) 4 mg PRN Q2HR PRN 03/08/19 19:45 03/09/19 19:44 Cancel Ondansetron HCl (Zofran) 4 mg PRN Q8HRS PRN 03/08/19 19:45 03/09/19 19:44 Cancel Oxycodone HCl (Roxicodone) 5 mg PRN Q3HRS PRN 03/08/19 19:15 03/12/19 21:07 5 MG Pantoprazole Sodium (PROTONIX VIAL for IV PUSH) 40 mg DAILYAC 03/09/19 08:15 03/12/19 11:34 DC 03/12/19 09:53 40 MG Pantoprazole Sodium (Protonix) 40 mg BIDAC 03/12/19 16:30 03/13/19 09:09 40 MG Piperacillin Sod/ Tazobactam Sod (Zosyn Per Pharmacy) 1 each PRN DAILY PRN 03/08/19 19:15 Piperacillin Sod/ Tazobactam Sod 2.25 gm/Sodium Chloride 50 ml @ 100 mls/hr Q6HRS 03/08/19 19:30 03/13/19 05:43 100 MLS/HR Prochlorperazine (Compazine) 25 mg PRN Q12HR PRN 03/08/19 19:15 Prochlorperazine Edisylate (Compazine) 10 mg PRN Q6HRS PRN 03/08/19 19:15 Sodium Chloride 1,000 ml @ 100 mls/hr 1X ONCE 03/08/19 19:45 03/09/19 05:44 Cancel Labs: Micro RUN DATE: 03/12/19 PAGE 1 RUN TIME: 2303 [facility] [address] [place] [address] Simone Ibarra M.D., Pharmaceutical Development Technician PATIENT: DINA HUNT ACCT: [id number] LOC: [address] [place] [address] U : [id number] AGE/SX: 54/M ROOM: [facility] REG : 03/08/[address]: RASHIDA CAREY MD : [id number] BED: 1 DIS : STATUS: ADM IN TLOC: SPEC #: [id number] AMINAH: 03/10/19 STATUS: RES REQ #: [id number] RECD: 03/10/[address]: LARRY OROPEZA MD SOURCE: PLEURAL FL ENTR: 03/10/19-1222 [facility] [place] DR: PAUL ZAPATA DO [facility] NATHEN JOYCE MD, VENU S MD PROPECK,OSMANI GONZALEZ MD, MD, CHERRIE Y MD WOLDEY, TARIKU G MD ORDERED: ANAER/AEROB/GS Procedure Result ANAEROBIC-AEROBIC CULTURE PENDING ANAEROBIC RES 1 PENDING AEROBIC CULT PENDING AEROBIC RES 1 PENDING GRAM STAIN Final Final report GRAM STAIN RES 1 Final Comment Moderate amount of white blood cells. GRAM STAIN RES 2 Final No organisms seen Performed at: - [facility], [place], [place] [id number] Steel Plate Caulker: BELL Brown MD, Phone: [phone] Objective: Assessment: Dyspnea, cough, resolved Pleural effusion , pleural fluid c/s negative so far,cytology negative,BC neg Repeat CXR showing improvement in infiltrates ,? aspiration, Abdominal pain resolved BC neg Leucocytosis improved IVANA Anemia. History of Crohn's disease, status post bowel resection and colostomy,10/2018 awaiting for surgery at on 03/18/2019 for correction of stoma deformity. History of weight loss, now gaining wt back up ,was on TPN prior to admission. Cholelithiasis without clinical evidence of cholangitis or cholecystitis. Protein-calorie malnutrition. 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 Plan: Plan of Care Cont current tx when ready for dc home ,transition to po augmentin and doxycycline,script in chart F/U with pcp in 10-14 days F/U pleural fluid c/s until final Pt plans to f/u at F/U with ID clinic if needed D/W DEN GERARDO MD Mar 13, 2019 10:27
[2019-03-13 11:00] VITALS: BP 167/88
--- NOTE | 2019-03-13 11:20 | NUR ---
SW following pt. Discussed with RN and Physician regarding home TPN and HH resumption orders. SW will await for dc order and proceed accordingly. Addendum: 03/13/19 at 1441 by DANISHA MARVIN SW phoned and faxed resumption order to [facility] and [facility]. Pt aware of plan and agreeable. ANGEL LY.
--- NOTE | 2019-03-13 12:00 | PDOC ---
PULMONARY PROGRESS NOTES Subjective sob better, has occ cough, no pain, thoracentesis done 03/10 Vitals Vital Signs Date Time Temp Pulse Resp B/P (MAP) Pulse Ox O2 Delivery O2 Flow Rate FiO2 03/13/19 11:39 Room Air 03/13/19 11:00 97.9 73 16 167/88 (114) 100 97.9 03/12/19 18:55 2.0 ROS: No Nausea, No Chest Pain General: Alert, Oriented X4 HEENT: Other (nc at perrl ) Lungs: Clear, Other (dull on r side) Cardiovascular: S1, S2 Abdomen: Soft, Non-tender Neuro Exam: Alert Extremities: No Edema Skin: Warm Labs Laboratory Tests Test 03/12/19 03:29 White Blood Count 10.1 x10^3/uL (4.0-11.0) Red Blood Count 2.72 x10^6/uL (4.30-5.70) Hemoglobin 7.7 g/dL (13.0-17.5) Hematocrit 24.4 % (39.0-53.0) Mean Corpuscular Volume 90 fL (79-100) Mean Corpuscular Hemoglobin 28 pg (25-35) Mean Corpuscular Hemoglobin Concent 32 g/dL (31-37) Red Cell Distribution Width 18.8 % (11.5-14.5) Platelet Count 374 x10^3/uL (140-400) Neutrophils (%) (Auto) 94 % (31-73) Lymphocytes (%) (Auto) 3 % (24-48) Monocytes (%) (Auto) 3 % (0-9) Eosinophils (%) (Auto) 0 % (0-3) Basophils (%) (Auto) 0 % (0-3) Neutrophils # (Auto) 9.6 x10^3uL (1.8-7.7) Lymphocytes # (Auto) 0.3 x10^3/uL (1.0-4.8) Monocytes # (Auto) 0.3 x10^3/uL (0.0-1.1) Eosinophils # (Auto) 0.0 x10^3/uL (0.0-0.7) Basophils # (Auto) 0.0 x10^3/uL (0.0-0.2) Sodium Level 143 mmol/L (136-145) Potassium Level 4.4 mmol/L (3.5-5.1) Chloride Level 109 mmol/L (98-107) Carbon Dioxide Level 19 mmol/L (21-32) Anion Gap 15 (6-14) Blood Urea Nitrogen 52 mg/dL (8-26) Creatinine 2.6 mg/dL (0.7-1.3) Estimated GFR (Cockcroft-Gault) 31.5 BUN/Creatinine Ratio 20 (6-20) Glucose Level 178 mg/dL (70-99) Calcium Level 7.0 mg/dL (8.5-10.1) Total Bilirubin 0.2 mg/dL (0.2-1.0) Aspartate Amino Transf (AST/SGOT) 16 U/L (15-37) Alanine Aminotransferase (ALT/SGPT) 40 U/L (16-63) Alkaline Phosphatase 148 U/L (46-116) Total Protein 6.9 g/dL (6.4-8.2) Albumin 1.9 g/dL (3.4-5.0) Albumin/Globulin Ratio 0.4 (1.0-1.7) Medications Active Scripts Medications Dose Route/Sig Max Daily Dose Days Date Category Zinc Sulfate 220 Mg Tablet 220 Mg PO DAILY 10/26/18 Reported Vitamin D3 (Cholecalciferol (Vitamin D3)) 5,000 Unit Tablet 2,000 Unit PO DAILY 10/26/18 Reported Stelara (Ustekinumab) 90 Mg/1 Ml Disp.syrin 90 Mg SQ EVERY 8 WEEKS 10/26/18 Reported Tamsulosin Hcl 0.4 Mg Cap.er.24h 1 Cap PO DAILY 10/26/18 Reported Prednisone 20 Mg Tablet 1 Tab PO BID 10/26/18 Reported Polyethylene Glycol 3350 255 Gm Powder 17 Gm PO DAILY 10/26/18 Reported Methotrexate (Methotrexate Sodium) 25 Mg/1 Ml Vial 25 Mg IJ WEEKLY 10/26/18 Reported Ensure Clear (Lactose-Reduced Food) 296 Ml Liquid 296 Ml PO 5XDAY 10/26/18 Reported Folic Acid 1 Mg Tablet 5 Tab PO DAILY 10/26/18 Reported Nexium Capsule (Esomeprazole Magnesium) 20 Mg Capsule.dr 20 Mg PO BID 10/26/18 Reported Eliquis (Apixaban) 5 Mg Tablet 5 Mg PO BID 10/26/18 Reported Carvedilol (Carvedilol) 12.5 Mg Tablet 12.5 Mg PO BIDWMEALS 10/26/18 Reported Calcium 600 + Vit D 200 Tablet (Calcium Carbonate/Vitamin D3) 1 Each Tablet 1 Each PO BID 10/26/18 Reported Bumetanide 2 Mg Tablet 1 Tab PO DAILY 10/26/18 Reported Impression . 1. Acute respiratory failure secondary to large pleural effusion, cannot rule out pneumonia, intra abdominal infection source or sepsis 2. Abnormal CT of the chest with large right pleural effusion, infiltrate, atelectasis, questionable etiology. 3. Anemia. 4. Leukocytosis. 5. Acute kidney injury. 6. Abdominal pain, questionable colitis versus ileus versus others. 7. Wheezing, acute bronchospasm. 8. History of Crohn disease, status post bowel resection and colostomy. Plan . 1. Titrate FiO2 to keep O2 saturation 92%. 2. bronchodilator, 4. Repeat lactic acid normal, high procalcitonin. 5. Continue Zosyn. CAN CHANGE TO PO 6. Protonix for stress ulcer prophylaxis and SCDs for DVT prophylaxis. 7. right ultrasound-guided thoracentesis, follow cultures, so far neg, exudate by protein criteria 8. surgery rec 9. cxr 03/12 with residual right effusion discussed w rn, pt/ ok with dc home, f/u at in MITZI Umana MD Mar 13, 2019 11:59
--- NOTE | 2019-03-13 12:22 | PDOC3 ---
Discharge Summary Date of Admission: Mar 09, 2019 Date of Discharge: Mar 13, 2019 Follow-Up: 1-2 days Admitting Diagnosis comment: Assessment/Plan Assessment/Plan discharge dx Assessment/Plan acute hypoxic resp failure acute asthma exac sepsis s/p colostomy at [facility] PLANNED revision March 18 Large right-sided pleural effusion with adjacent airspace consolidation. Follow-up could be obtained to ensure this resolves. Improved right pleural effusion, no pneumothorax. 03/10 POST THORACENTESIS colitis cholelithiasis GB distention acute renal failure, ATN Multiloculated pleural effusion. Aspiration of 1 L from the right hemithorax. 03/10 referral to [facility] to follow up with his surgeon DR JOYCE following iv steroids, albuterol pcxr CONSULT IR EMPERIC IV ANTIBIOTICS, ZOSYN, ZYVOX BLOOD CULT SCD'S SWALLOW SCREEN d/w dr lees cont home tpn 34 MIN PT EXAM d/c planning time , CHART REVIEW, > 50% OF TIME SPENT WITH EXAM, CHART REVIEW, PT CARE COORDINATION Vitals Vitals Vital Signs Date Time Temp Pulse Resp B/P (MAP) Pulse Ox O2 Delivery O2 Flow Rate FiO2 03/13/19 08:00 Room Air 03/13/19 03:00 03/12/19 22:07 18 98 03/12/19 19:00 97.9 53 97.9 03/12/19 18:55 2.0 Physical Exam Physical Exam GENERAL: Alert and oriented x 3 male in no acute distress, lying comfortably in bed, eating lunch. HEENT: Anicteric. Pupils equal, reactive. Extraocular movements intact. Edentulous. No thrush. Oral mucosa moist. No oropharyngeal exudate. NECK: Supple. No JVD. LUNGS: Decreased breath sounds on the right side. No wheezing. no distress CARDIOVASCULAR: S1, S2 with no gallops or murmurs. ABDOMEN: Mildly distended, soft, mild diffuse tenderness present mainly in the right upper and lower quadrants. Bowel sounds present. No rebound, no guarding. EXTREMITIES: No edema, no cyanosis. DERMATOLOGIC: Warm, dry. No generalized rash. LINES: Right-sided chest wall PowerPICC looks okay. CENTRAL NERVOUS SYSTEM: Alert and oriented x 3. Grossly nonfocal. PSYCHIATRIC: Cooperative, appropriate mood and affect. General: Alert, Oriented X3, Cooperative, No acute distress Heart: Regular rate, Normal S1, Normal S2 Lungs: Clear, Other (dull on r side) Abdomen: Soft, No tenderness Extremities: No clubbing, No cyanosis, No edema Skin: No breakdown, No significant lesion Labs LABS Portable chest, 03/12/2019: HISTORY: Pleural effusion Comparison is made to a study from 03/10/2019. A right sided central venous catheter remains in place extending into the superior vena cava. The heart size is unchanged. The left chest remains clear. There is persistent pleural fluid and infiltrate in the right lower chest. Aeration of the right lung base has improved slightly. There is no evidence of pneumothorax. No new chest abnormality is detected. There is a moderate amount gas in the stomach. IMPRESSION: Moderate right basilar infiltrate and pleural fluid with slight improvement since 03/10/2019. FINAL DIAGNOSIS Problems Medical Problems: (1) ARF (acute renal failure) Status: Acute (2) Cholelithiasis Status: Acute (3) Pleural effusion on right Status: Acute Brief Hospital Course Mr. Summers is a 54 old [sex] who presented with [pneumonia ] CONDITION AT DISCHARGE: Improved Discharge Medications Current Medications Sodium Chloride 1,000 ml @ 1,000 mls/hr 1X ONCE IV Last administered on at 15:30; Start 03/08/19 at 15:30; Stop 03/08/19 at 16:29; Status DC Ondansetron HCl (Zofran) 4 mg 1X ONCE IV ; Start 03/08/19 at 15:30; Stop at 15:31; Status DC Morphine Sulfate (Morphine Sulfate) 5 mg 1X ONCE IV ; Start 03/08/19 at 15:30; Stop 03/08/19 at 15:31; Status DC Sodium Chloride 1,000 ml @ 100 mls/hr Q10H IV Last administered on 03/08/19at 21:18; Start 03/08/19 at 19:04; Stop 03/09/19 at 05:25; Status DC Ondansetron HCl (Zofran) 4 mg PRN Q6HRS PRN IV NAUSEA/VOMITING, 1ST CHOICE; Start 03/08/19 at 19:15 Prochlorperazine Edisylate (Compazine) 10 mg PRN Q6HRS PRN IV NAUSEA/VOMITING, 2ND CHOICE; Start 03/08/19 at 19:15 Prochlorperazine (Compazine) 25 mg PRN Q12HR PRN DC NAUSEA/VOMITING; Start 11/14 at 19:15 Calcium Carbonate/ Glycine (Tums) 500 mg PRN Q3HRS PRN PO UPSET STOMACH; Start 03/08/19 at 19:15 Oxycodone HCl (Roxicodone) 5 mg PRN Q3HRS PRN PO BREAKTHROUGH PAIN Last administered on 03/12/19at 21:07; Start 03/08/19 at 19:15 Morphine Sulfate (Morphine Sulfate) 2 mg PRN Q2HR PRN IV PAIN Last administered on 03/09/19at 05:33; Start 03/08/19 at 19:15 Acetaminophen (Tylenol) 650 mg PRN Q6HRS PRN PO Headaches, Temp > 101.5F; Start 03/08/19 at 19:15 Piperacillin Sod/ Tazobactam Sod (Zosyn Per Pharmacy) 1 each PRN DAILY PRN MC SEE COMMENTS; Start 03/08/19 at 19:15 Hydralazine HCl (Apresoline Inj) 10 mg PRN Q4HRS PRN IVP ELEVATED BP, SEE COMMENTS; Start 03/08/19 at 19:15 Piperacillin Sod/ Tazobactam Sod 2.25 gm/Sodium Chloride 50 ml @ 100 mls/hr Q6HRS IV Last administered on 03/13/19at 12:15; Start 03/08/19 at 19:30 Ondansetron HCl (Zofran) 4 mg PRN Q8HRS PRN IV NAUSEA/VOMITING; Start 03/08/19 at 19:45; Stop 03/09/19 at 19:44; Status Cancel Morphine Sulfate (Morphine Sulfate) 4 mg PRN Q2HR PRN IV PAIN; Start 03/08/19 at 19:45; Stop 03/09/19 at 19:44; Status Cancel Sodium Chloride 1,000 ml @ 100 mls/hr 1X ONCE IV ; Start 03/08/19 at 19:45; Stop 03/09/19 at 05:44; Status Cancel Dextrose/Sodium Chloride 1,000 ml @ 75 mls/hr [id number] IV Last administered on 03/13/19at 05:42; Start 03/09/19 at 05:30 Ceftriaxone Sodium (Rocephin) 1 gm Q24H IVP ; Start 03/09/19 at 08:00; Stop at 08:01; Status DC Ipratropium [place] (Atrovent) 0.5 mg RTQID NEB Last administered on 03/13/19at 11:39; Start 03/09/19 at 08:00 Budesonide (Pulmicort) 0.5 mg RTBID NEB Last administered on 03/12/19 19:18; Start 03/09/19 at 08:00 Pantoprazole Sodium (PROTONIX VIAL for IV PUSH) 40 mg DAILYAC IVP Last administered on 03/12/19 09:53; Start 03/09/19 at 08:15; Stop 03/12/19 at 11:34 ; Status DC Methylprednisolone Sodium Succinate (SOLU-Medrol 125MG VIAL) 100 mg Q8HRS IV Last administered on 03/13/19 05:42; Start 03/09/19 at 14:00 Lactobacillus Rhamnosus (Culturelle) 1 cap BID PO Last administered on 09:09; Start 03/09/19 at 21:00 Linezolid (Zyvox) 600 mg BID PO Last administered on 03/13/19 09:09; Start at 14:30 Pantoprazole Sodium (Protonix) 40 mg BIDAC PO Last administered on 03/13/19 09 :09; Start 03/12/19 at 16:30 Doxycycline Hyclate 100 mg/ Dextrose 100 ml @ 50 mls/hr Q12HR IV Last administered on 03/13/19 09:09; Start 03/12/19 at 21:00 Active Scripts Active Reported Zinc Sulfate 220 Mg Tablet 220 Mg PO DAILY Vitamin D3 (Cholecalciferol (Vitamin D3)) 5,000 Unit Tablet 2,000 Unit PO DAILY Stelara (Ustekinumab) 90 Mg/1 Ml Disp.syrin 90 Mg SQ EVERY 8 WEEKS Tamsulosin Hcl 0.4 Mg Cap.er.24h 1 Cap PO DAILY Prednisone 20 Mg Tablet 1 Tab PO BID Polyethylene Glycol 3350 255 Gm Powder 17 Gm PO DAILY Methotrexate (Methotrexate Sodium) 25 Mg/1 Ml Vial 25 Mg IJ WEEKLY Ensure Clear (Lactose-Reduced Food) 296 Ml Liquid 296 Ml PO 5XDAY Folic Acid 1 Mg Tablet 5 Tab PO DAILY Nexium Capsule (Esomeprazole Magnesium) 20 Mg Capsule.dr 20 Mg PO BID Eliquis (Apixaban) 5 Mg Tablet 5 Mg PO BID Carvedilol (Carvedilol) 12.5 Mg Tablet 12.5 Mg PO BIDWMEALS Calcium 600 + Vit D 200 Tablet (Calcium Carbonate/Vitamin D3) 1 Each Tablet 1 Each PO BID Bumetanide 2 Mg Tablet 1 Tab PO DAILY Vital Signs Vital Signs Date Time Temp Pulse Resp B/P (MAP) Pulse Ox O2 Delivery O2 Flow Rate FiO2 03/13/19 11:39 Room Air 03/13/19 11:00 97.9 73 16 167/88 (114) 100 97.9 03/12/19 18:55 2.0 Labs Laboratory Tests Test 03/12/19 03:29 White Blood Count 10.1 x10^3/uL (4.0-11.0) Red Blood Count 2.72 x10^6/uL (4.30-5.70) Hemoglobin 7.7 g/dL (13.0-17.5) Hematocrit 24.4 % (39.0-53.0) Mean Corpuscular Volume 90 fL (79-100) Mean Corpuscular Hemoglobin 28 pg (25-35) Mean Corpuscular Hemoglobin Concent 32 g/dL (31-37) Red Cell Distribution Width 18.8 % (11.5-14.5) Platelet Count 374 x10^3/uL (140-400) Neutrophils (%) (Auto) 94 % (31-73) Lymphocytes (%) (Auto) 3 % (24-48) Monocytes (%) (Auto) 3 % (0-9) Eosinophils (%) (Auto) 0 % (0-3) Basophils (%) (Auto) 0 % (0-3) Neutrophils # (Auto) 9.6 x10^3uL (1.8-7.7) Lymphocytes # (Auto) 0.3 x10^3/uL (1.0-4.8) Monocytes # (Auto) 0.3 x10^3/uL (0.0-1.1) Eosinophils # (Auto) 0.0 x10^3/uL (0.0-0.7) Basophils # (Auto) 0.0 x10^3/uL (0.0-0.2) Sodium Level 143 mmol/L (136-145) Potassium Level 4.4 mmol/L (3.5-5.1) Chloride Level 109 mmol/L (98-107) Carbon Dioxide Level 19 mmol/L (21-32) Anion Gap 15 (6-14) Blood Urea Nitrogen 52 mg/dL (8-26) Creatinine 2.6 mg/dL (0.7-1.3) Estimated GFR (Cockcroft-Gault) 31.5 BUN/Creatinine Ratio 20 (6-20) Glucose Level 178 mg/dL (70-99) Calcium Level 7.0 mg/dL (8.5-10.1) Total Bilirubin 0.2 mg/dL (0.2-1.0) Aspartate Amino Transf (AST/SGOT) 16 U/L (15-37) Alanine Aminotransferase (ALT/SGPT) 40 U/L (16-63) Alkaline Phosphatase 148 U/L (46-116) Total Protein 6.9 g/dL (6.4-8.2) Albumin 1.9 g/dL (3.4-5.0) Albumin/Globulin Ratio 0.4 (1.0-1.7) Allergies Allergies Coded Allergies Type Severity Reaction Last Updated Verified No Known Drug Allergies 10/26/18 No Disposition/Orders: D/C to Home w/ CHELSEA Patient Instructions d/c planning 33 min ROYA CAIN MD Mar 13, 2019 12:21
[2019-03-13] MEDS ORDERED: BUDE0.5A NEB (12:25)
[2019-03-13] MEDS ORDERED: CALC200T23 PO (12:25)
[2019-03-13] MEDS ORDERED: AMOX1TAB58 PO (12:25)
--- NOTE | 2019-03-13 12:31 | SNU/HH DC ---
DISCHARGE WITH HOME HEALTH DISCHARGE INFORMATION: Final Diagnosis: Problems Medical Problems: (1) ARF (acute renal failure) Status: Acute (2) Cholelithiasis Status: Acute (3) Pleural effusion on right Status: Acute Condition on Discharge: Guarded CODE STATUS: Code Status: Full HOME HEALTH: Face to Face: I certify this patient is under my care and that I, or a nurse practitioner or physician's event sales assistant working with me, had a face to face encounter that meets the physician face to face encounter requirements with this patient on []. Medical Complications: Pneumonia RN For Eval/Treatment: Yes Physical Therapy For: Evalulation/Treatment Occupational Therapy For: Evaluation/Treatment Speech Language Pathology For: Evaluation/Treatment Home Health Aide For: Self-care MENTAL HYGIENIST For: Community Resources Pt Meets Homebound Status: Poor coordination w/ amb. POST DISCHARGE ORDERS: Activity Instructions for Disc: Activity as tolerated DIET AFTER DISCHARGE: Regular FOLLOW-UP: PCP to follow Home Health: 1 week Follow up with: [facility] SURGERY DEPT TOMORROW Follow Up With: PCP IN 1 WEEK TREATMENT/EQUIPMENT ORDERS: Adaptive Equipment Issued: Front wheeled walker CERTIFICATION STATEMENT: Certification Statement: Certification Statement: Based on the above finding, I certify that this patient is confined to the home and needs intermittent correction care, physical therapy and/or speech therapy, or continues to need occupational therapy.~ This patient is under my care, and I have initiated the establishment of the plan of care.~ This patient will be followed by myself or a community physician who will periodically review the plan of care. Home Meds Active Scripts Amoxicillin/Potassium Clav (AUGMENTIN 500-125 TABLET) 1 Each Tablet, 1 TAB PO BID for pneumonia, #20 TAB Prov:ROYA CAIN MD 03/13/19 Budesonide (BUDESONIDE) 0.5 Mg/2 Ml Ampul.neb, 0.5 MG NEB RTBID for lungs for 14 Days, #30 EACH Prov:ROYA CAIN MD 03/13/19 Calcium Carbonate (CALCIUM CARBONATE) 200 Mg Tab.chew, 500 MG PO PRN Q3HRS PRN for UPSET STOMACH for 10 Days, #30 TAB.CHEW Prov:ROYA CAIN MD 03/13/19 Reported Medications Zinc Sulfate (ZINC SULFATE) 220 Mg Tablet, 220 MG PO DAILY for SUPPLIMENT, TAB 10/26/18 Cholecalciferol (Vitamin D3) (VITAMIN D3) 5,000 Unit Tablet, 2000 UNIT PO DAILY for SUPPLIMENT, TAB 10/26/18 Ustekinumab (STELARA) 90 Mg/1 Ml Disp.syrin, 90 MG SQ EVERY 8 WEEKS for OTHER, DIS.SYR 10/26/18 Tamsulosin Hcl (TAMSULOSIN HCL) 0.4 Mg Cap.er.24h, 1 CAP PO DAILY for FLOMAX, # 30 CAP 5 Refills 10/26/18 Prednisone (PREDNISONE) 20 Mg Tablet, 1 TAB PO BID for OTHER, #10 TAB 10/26/18 Polyethylene Glycol 3350 (POLYETHYLENE GLYCOL 3350) 255 Gm Powder, 17 GM PO DAILY for STOOL SOFTNER, #527 GM 10/26/18 Methotrexate Sodium (METHOTREXATE) 25 Mg/1 Ml Vial, 25 MG IJ WEEKLY for OTHER, EACH 10/26/18 Lactose-Reduced Food (Ensure Clear) 296 Ml Liquid, 296 ML PO 5XDAY for SUPPLIMENT, LIQUID 10/26/18 Folic Acid (FOLIC ACID) 1 Mg Tablet, 5 TAB PO DAILY for SUPPLIMENT, #90 TAB 1 Refill 10/26/18 Esomeprazole Magnesium (NEXIUM CAPSULE) 20 Mg Capsule.dr, 20 MG PO BID for GERD , #30 CAP 0 Refills 10/26/18 Apixaban (ELIQUIS) 5 Mg Tablet, 5 MG PO BID for DVT BLOOD THINNER, TAB 10/26/18 Carvedilol (CARVEDILOL ) 12.5 Mg Tablet, 12.5 MG PO BIDWMEALS for CARDIAC, TAB 10/26/18 Calcium Carbonate/Vitamin D3 (CALCIUM 600 + VIT D 200 TABLET) 1 Each Tablet, 1 EACH PO BID for SUPPLIMENT, TAB 10/26/18 Bumetanide (BUMETANIDE) 2 Mg Tablet, 1 TAB PO DAILY for DIURETIC, #90 TAB 1 Refill 10/26/18 ROYA CAIN MD Mar 13, 2019 12:31
--- NOTE | 2019-03-13 12:44 | NUR ---
Bedside Swallow Evaluation completed. Please see full report for additional information. Impressions: Functional oropharyngeal swallow. Mastication inefficiency r/t edentulous status. No s/s aspiration noted w/ trials of thin liquids, puree and solids. Pt agreeable to diet modification to dysphagia II while in hospital and w/o his dentures. Pt further states he feels that his coughing when eating yesterday was r/t him eating too fast and not chewing meat well d/t edentulous status. Risk of aspiration appears low w/ modified diet and general swallow precautions. Recommendations: Dysphagia II diet w/ thin liquids. General swallow precautions which were d/w pt and posted in room.
--- NOTE | 2019-03-13 13:30 | NUR ---
Patient discharged to home with home health. Discharge instructions, medications, and follow up appointments discussed with patient. Patient verbalized understanding. Discharge papers and prescriptions given to patient. PICC flushed and capped. Dressing CDI. All belongings with patient. Patients mother here to get patient. Assisted patient out in wheelchair at this time.
--- NOTE | 2019-03-13 14:36 | PDOC ---
SUBJECTIVE ROS No new complaints OBJECTIVE Vital Signs Vital Signs Date Time Temp Pulse Resp B/P (MAP) Pulse Ox O2 Delivery O2 Flow Rate FiO2 03/13/19 11:39 Room Air 03/13/19 11:00 97.9 73 16 167/88 (114) 100 97.9 03/12/19 18:55 2.0 I & 0 Intake and Output 03/13/19 06:59 Intake Total 2000 ml Output Total 1250 ml Balance 750 ml Intake Oral 2000 ml Stool Total 1250 ml PHYSICAL EXAM Physical Exam General Appearance: no apparent distress Respiratory: decreased breath sounds Heart: S1S2 Abdomen: soft, bowel sounds present Genitourinary: No boggs Extremities: pulses present Neurology: alert, oriented DIAGNOSIS/ASSESSMENT Assessment & Plan IVANA on CKD - Improving ,Likely sec to Dehydration No labs today CKD stage 3/4- On Review of [facility] records Baseline Cr < 2 and up to 2.[address] Arnold at , and not sure about his baseline renal function He thinks his fu appt with him scheduled this or next month Metabolic acidosis- Stable , Monitor Pleural Effusion- RT S/P Thoracentesis, Pulm following Cholelithiasis H/o Crohn's disease s/p resection/ostomy plans for revision @ on 03/18 COMMENT/RELEVANT DATA Meds Current Medications Medications (Trade) Dose Ordered Sig/Vazquez Start Time Stop Time Status Last Admin Dose Admin Acetaminophen (Tylenol) 650 mg PRN Q6HRS PRN 03/08/19 19:15 Budesonide (Pulmicort) 0.5 mg RTBID 03/09/19 08:00 03/12/19 19:18 0.5 MG Calcium Carbonate/ Glycine (Tums) 500 mg PRN Q3HRS PRN 03/08/19 19:15 Ceftriaxone Sodium (Rocephin) 1 gm Q24H 03/09/19 08:00 03/09/19 08:01 DC Dextrose/Sodium Chloride 1,000 ml @ 75 mls/hr [id number] 03/09/19 05:30 03/13/19 05:42 75 MLS/HR Doxycycline Hyclate 100 mg/ Dextrose 100 ml @ 50 mls/hr Q12HR 03/12/19 21:00 03/13/19 09:09 50 MLS/HR Hydralazine HCl (Apresoline Inj) 10 mg PRN Q4HRS PRN 03/08/19 19:15 Ipratropium [place] (Atrovent) 0.5 mg RTQID 03/09/19 08:00 03/13/19 11:39 0.5 MG Lactobacillus Rhamnosus (Culturelle) 1 cap BID 03/09/19 21:00 03/13/19 09:09 1 CAP Linezolid (Zyvox) 600 mg BID 03/11/19 14:30 03/13/19 09:09 600 MG Methylprednisolone Sodium Succinate (SOLU-Medrol 125MG VIAL) 100 mg Q8HRS 03/09/19 14:00 03/13/19 05:42 100 MG Morphine Sulfate (Morphine Sulfate) 4 mg PRN Q2HR PRN 03/08/19 19:45 03/09/19 19:44 Cancel Ondansetron HCl (Zofran) 4 mg PRN Q8HRS PRN 03/08/19 19:45 03/09/19 19:44 Cancel Oxycodone HCl (Roxicodone) 5 mg PRN Q3HRS PRN 03/08/19 19:15 03/12/19 21:07 5 MG Pantoprazole Sodium (PROTONIX VIAL for IV PUSH) 40 mg DAILYAC 03/09/19 08:15 03/12/19 11:34 DC 03/12/19 09:53 40 MG Pantoprazole Sodium (Protonix) 40 mg BIDAC 03/12/19 16:30 03/13/19 09:09 40 MG Piperacillin Sod/ Tazobactam Sod (Zosyn Per Pharmacy) 1 each PRN DAILY PRN 03/08/19 19:15 Piperacillin Sod/ Tazobactam Sod 2.25 gm/Sodium Chloride 50 ml @ 100 mls/hr Q6HRS 03/08/19 19:30 03/13/19 12:15 100 MLS/HR Prochlorperazine (Compazine) 25 mg PRN Q12HR PRN 03/08/19 19:15 Prochlorperazine Edisylate (Compazine) 10 mg PRN Q6HRS PRN 03/08/19 19:15 Sodium Chloride 1,000 ml @ 100 mls/hr 1X ONCE 03/08/19 19:45 4/13/19 05:44 Cancel Results All relevant outside records, renal labs, imaging studies, telemetry/EKG's were reviewed. AISHA GIBBS MD Mar 13, 2019 14:36
== END 2019-03-13 13:45 | disposition home health service (06) | DRG 871 ==
LOC: ER 14:57 → 6 SOUTH 19:16
PROVIDERS: ADMIT Internal Medicine; ATTEND Internal Medicine
PROC: 0W993ZZ Drainage of Right Pleural Cavity, Percutaneous Approach (ICD-10-PCS; principal; 2019-03-10)
DX: A41.9 Sepsis, unspecified organism (principal); N17.0 Acute kidney failure with tubular necrosis; J96.01 Acute respiratory failure with hypoxia; J18.9 Pneumonia, unspecified organism; J90 Pleural effusion, not elsewhere classified; N18.4 Chronic kidney disease, stage 4 (severe); E46 Unspecified protein-calorie malnutrition; J98.11 Atelectasis; J45.901 Unspecified asthma with (acute) exacerbation; I12.9 Hypertensive chronic kidney disease with stage 1 through stage 4 chronic kidney disease, or unspecified chronic kidney disease; K80.20 Calculus of gallbladder without cholecystitis without obstruction; D63.1 Anemia in chronic kidney disease; E86.0 Dehydration; M19.90 Unspecified osteoarthritis, unspecified site; M48.00 Spinal stenosis, site unspecified; N32.89 Other specified disorders of bladder; Z82.49 Family history of ischemic heart disease and other diseases of the circulatory system; Z90.49 Acquired absence of other specified parts of digestive tract; Z93.3 Colostomy status; Z68.22 Body mass index [BMI] 22.0-22.9, adult
CPT/HCPCS: 36415; 71045; 71250; 74176; 76942; 80048; 80053; 81001; 82945; 82962; 83605; 83615; 83690; 83735; 83986; 84100; 84145; 84155; 84157; 84550; 85007; 85025; 85610; 85651; 85730; 87015; 87040; 87071; 87075; 87116; 88112; 88184; 88185; 88305; 89050; 94640; 94760; 96360; 96361; C9113; J2270; J2543; J2930; J3490; J7030; J7626; J7644; 92610; 97110; 97116; 99285-25

== ENCOUNTER 2021-02-24 13:31 | Emergency (ER) | payer MEDICARE ==
[~2021-02-24] VITALS: Ht 167.6 cm; Wt 64.0 kg
[~2021-02-24 13:31] MED LIST changes: +AMLO-186 PO; +AMLO-187 PO; +AMOX1TAB58 PO; +BUDE0.5A NEB; +CALC-627 PO; -CALC1TAB75 PO; +CALC200T23 PO; +CYCL5TAB PO; +DICL100G54 TP; +ENOX120D SQ; +FERR325T14 PO; +HYDR-2869 PO; +LIDO700A21 TP; +LINE600T12 PO; +SILD20TA4 PO; +TEDU5KIT SQ; +WARF3TAB50 PO; -ZINC220T PO; +ZINC220T3 PO
[2021-02-24 14:27] LABS: BASO # 0.1 x10^3/uL (0.0-0.2); BASO % 1 % (0-3); EOS # 0.4 x10^3/uL (0.0-0.7); EOS % 6 % (0-3); HEMATOCRIT 23.2 % (39.0-53.0); HEMOGLOBIN 7.4 g/dL (13.0-17.5); LYMPH # 1.7 x10^3/uL (1.0-4.8); LYMPH % 25 % (24-48); MEAN CORPUSCULAR HEMOGLOBIN 26 pg (25-35); MEAN CORPUSCULAR HGB CONC 32 g/dL (31-37); MEAN CORPUSCULAR VOLUME 82 fL (79-100); MONO # 0.7 x10^3/uL (0.0-1.1); MONO % 10 % (0-9); NEUT # 3.9 x10^3/uL (1.8-7.7); NEUT % 58 % (31-73); PLATELET COUNT 393 x10^3/uL (140-400); RED BLOOD COUNT 2.84 x10^6/uL (4.30-5.70); RED CELL DISTRIBUTION WIDTH 17.8 % (11.5-14.5); WHITE BLOOD COUNT 6.7 x10^3/uL (4.0-11.0)
[2021-02-24 16:17] VITALS: BP 139/84
[2021-02-24 16:22] VITALS: BP 136/87
[2021-02-24 16:27] VITALS: BP 144/89
[2021-02-24 16:32] VITALS: BP 142/89
--- NOTE | 2021-02-24 16:36 | ED.ADGEN ---
Past Medical History Past Medical History: Other Additional Past Medical Histor: crohn's disease, CKD Past Surgical History: Other Additional Past Surgical Histo: bowel resection, colostomy Smoking Status: Never Smoker Alcohol Use: None Drug Use: Marijuana General Adult EDM: Chief Complaint: ABNORMAL LABS HPI: HPI: Patient is a 56-year-old male with past medical history of Crohn's who presents to the emergency room with known anemia. He had lab work drawn earlier today that shows a hemoglobin of 6.9. He states he gets it drawn at his clinic that d oes his TPN. Patient states that he is fatigued but otherwise feels normal. He has required transfusions previously. He states he has had work-ups before but they do not know where he is losing blood. He denies any new changes. Review of Systems: Review of Systems: Complete ROS is negative unless otherwise documented in HPI Allergies: Allergies: Allergies Coded Allergies Type Severity Reaction Last Updated Verified No Known Drug Allergies 10/26/18 No Physical Exam: PE: General: Awake, alert, NAD. Well Nourished, well hydrated. Cooperative HEENT: Atraumatic, EOMI, PERRL, airway patent, moist oral mucosa Neck: Supple, trachea midline Respiratory: CTA bilaterally, normal effort, no wheezing/crackles CV: RRR, no murmur, cap refill <2 GI: Soft, nondistended, nontender, no masses MSK: No obvious deformities Skin: Warm, dry, intact Neuro: A&O x3, speech NL, sensory and motor grossly intact, no focal deficits Psych: Normal affect, normal mood, not suicidal or homicidal Current Patient Data: Labs: Laboratory Tests Test 02/24/21 14:19 White Blood Count 6.7 x10^3/uL (4.0-11.0) Red Blood Count 2.84 x10^6/uL (4.30-5.70) L Hemoglobin 7.4 g/dL (13.0-17.5) L Hematocrit 23.2 % (39.0-53.0) L Mean Corpuscular Volume 82 fL (79-100) Mean Corpuscular Hemoglobin 26 pg (25-35) Mean Corpuscular Hemoglobin Concent 32 g/dL (31-37) Red Cell Distribution Width 17.8 % (11.5-14.5) H Platelet Count 393 x10^3/uL (140-400) Neutrophils (%) (Auto) 58 % (31-73) Lymphocytes (%) (Auto) 25 % (24-48) Monocytes (%) (Auto) 10 % (0-9) H Eosinophils (%) (Auto) 6 % (0-3) H Basophils (%) (Auto) 1 % (0-3) Neutrophils # (Auto) 3.9 x10^3/uL (1.8-7.7) Lymphocytes # (Auto) 1.7 x10^3/uL (1.0-4.8) Monocytes # (Auto) 0.7 x10^3/uL (0.0-1.1) Eosinophils # (Auto) 0.4 x10^3/uL (0.0-0.7) Basophils # (Auto) 0.1 x10^3/uL (0.0-0.2) Laboratory Tests 02/24/21 14:19 Vital Signs: Vital Signs Date Time Temp Pulse Resp B/P (MAP) Pulse Ox O2 Delivery O2 Flow Rate FiO2 02/24/21 19:03 83 148/91 (110) 100 Room Air 02/24/21 16:32 98.0 16 98.0 EKG: EKG: [] Heart Score: C/O Chest Pain: N/A Risk Factors: Risk Factors: DM, Current or recent (<one month) smoker, HTN, HLP, family history of CAD, obesity. Risk Scores: Score 0 - 3: 2.5% MACE over next 6 weeks - Discharge Home Score 4 - 6: 20.3% MACE over next 6 weeks - Admit for Clinical Observation Score 7 - 10: 72.7% MACE over next 6 weeks - Early Invasive Strategies Radiology/Procedures: Radiology/Procedures: [] Course & Med Decision Making: Course & Med Decision Making Pertinent Labs and Imaging studies reviewed. (See chart for details) Patient is 56-year-old male with past medical history of Crohn's who presents to the emergency room with known anemia. Patient's hemoglobin here is 7.4. Given his recent hemoglobin of 6.9, his tachycardia, and his fatigue he will be given a single unit of blood here in the emergency room. Patient was offered admission but would rather go home. He is stable at this time. This is not a change from his baseline. We will do his transfusion and plan to discharge him home post transfusion. Kassy Disclaimer: Kassy Disclaimer: This electronic medical record was generated, in whole or in part, using a voice recognition dictation system. Departure Departure Impression: Primary Impression: Anemia Disposition: 01 DC HOME SELF CARE/HOMELESS Condition: STABLE Referrals: UNKNOWN PCP NAME (PCP) Patient Instructions: Anemia, Nonspecific-Brief, Blood Transfusion Information MADDIE LORD MD Feb 24, 2021 16:35
[2021-02-24 19:03] VITALS: BP 148/91
== END 2021-02-24 19:10 | disposition home or self-care (01) ==
LOC: ER 13:31
DX: D64.9 Anemia, unspecified (principal); R53.83 Other fatigue; N18.9 Chronic kidney disease, unspecified; F12.90 Cannabis use, unspecified, uncomplicated; Z98.890 Other specified postprocedural states; Z90.89 Acquired absence of other organs
CPT/HCPCS: 36415; 36430; 85025; 86850; 86900; 86901; 86920; 99285; P9016